=== PATIENT | female | born 1950 | race Caucasian/White ===

== ENCOUNTER → 2017-07-15 | Day surgery (SDC) | payer MEDICARE ==
[2017-07-09 12:16] LABS: BASOPHILS # (AUTO) 0.1 (0.0-0.1); BASOPHILS % 0.6 % (0.0-1.0); EOSINOPHILS # (AUTO) 0.2 (0.0-0.4); EOSINOPHILS % 2.4 % (0.0-6.0); HEMATOCRIT 36.6 % (34.2-44.1); HEMOGLOBIN 12.2 g/dL (12.0-16.0); LYMPHOCYTES # (AUTO) 2.4 (1.0-3.2); LYMPHOCYTES % 28.8 % (18.0-39.1); MEAN CORPUSCULAR HEMOGLOBIN 30.7 pg (28-32); MEAN CORPUSCULAR HGB CONC 33.3 g/dL (31-35); MONOCYTES # (AUTO) 0.5 (0.2-0.8); MONOCYTES % 5.5 % (4.4-11.3); NEUTROPHILS # (AUTO) 5.1 (2.1-6.9); NEUTROPHILS % 61.9 % (38.7-80.0); PLATELET COUNT 341 x10e3/uL (140-360); RED BLOOD COUNT 3.98 x10e6/uL (3.6-5.1); RED CELL DISTRIBUTION WIDTH 12.5 % (11.7-14.4)
[~2017-07-15] MED LIST: ASA81 MG PO; ASPIRIN81 MG PO; CALCIUM WITH V1 EAC1 PO; COPAXONE20 MG INJ; CYMBALTA60 MG PO; FENTANYL CITRATE/PF 100MCG/2 ML INJ ONE; INVANZ1 GM IV; KEFLEX500 MG PO; LEVOTHYROXINE50 MCG PO; LIDOCAINE HCL 2% LOCAL INJ 5 ML SDV VIAL INJ ONE; MIDAZOLAM HCL 2 MG/2 ML VIAL ONE; MULTIVITAMINS1 EAC7 PO; NORCO 7.5-3251 EACH PO; PHENYLEPHRINE HCL 1% 10 MG/ML VIAL ONE; PROPOFOL IV EMULSION 10 MG/ML 50 ML VIAL ONE; TRIAMTERENE/HCTZ PO; TRIMETHOPRIM100 MG PO; TROSPIUM CHLORI20 MG PO; VITAMIN B-12 PO; VITAMIN D32000 UNI1 PO; Z EFFEXOR PO; Z.0.BACLOFEN20 MG PO; Z.0.NEURONTIN300 MG PO
--- OUTSIDE RECORDS SUMMARY | 2017-07-15 08:56 | XMS REPORT ---
Author Author [facility] Address Unknown Phone Unavailable Care Team Providers Care Clothing Manager Name Role Phone EBER MERINO Unavailable Unavailable TIRSO CUELLAR Unavailable Unavailable Problems This patient has no known problems. Allergies, Adverse Reactions, Alerts This patient has no known allergies or adverse reactions. Medications This patient has no known medications. Results Test Description Test Time Test Comments Text Results Atomic Results Result Comments CHEST XRAY LINE PLACEMENT [place] [address] Patient Name: MELANI BURTON MR #: [id number] : 1950 Age/Sex: 66/F Req #: [id number] [facility] Physician: EBER MERINO MD Ordered by: EBER MERINO MD Report #: [id number] Location: [facility] Room/Bed: [place] [address] Procedure: [id number] DX/CHEST XRAY LINE PLACEMENT Exam Date: 02/10/17 Exam Time: 1610 REPORT STATUS: Signed PROCEDURE: A single AP view of the chest. COMPARISON: 02/07/17 INDICATIONS: PICC LINE PLACEMENT FINDINGS: Lines/ tubes: Right upper extremity PICC in place with tip overlying mid SVC. Lungs: The lungs are well inflated. Unchanged left basilar haziness. Pleura: There is no pneumothorax. Heart and mediastinum: The heart and the mediastinum are unremarkable. Bones: No acute bony abnormality. IMPRESSION: Status post right upper extremity PICC placement. No visible pneumothorax. Unchanged left basilar haziness, representing atelectasis and/or a small effusion. Dictated by: Ignacio Turk M.D. on 02/10/2017 at 16:43 Electronically approved by: Ignacio Turk M.D. on 02/10/2017 at 16:43 Dictated By: IGNACIO TURK MD 42 Transcribed By: ELSY on 02/10/171642 COPY TO: EBER MERINO MD CHEST SINGLE (PORTABLE) [place] [address] Patient Name: MELANI BURTON MR #: [id number] : 1950 Age/Sex: 66/F Req #: [id number] Adm Physician: EBER MERINO MD Ordered by: HUANG HOOD Report #: [id number] Location: [facility] Room/Bed: [place] [address] Procedure: [id number] DX/CHEST SINGLE (PORTABLE) Exam Date: 02/07/17 Exam Time: 1436 REPORT STATUS: Signed EXAMINATION: Chest, CHEST SINGLE (PORTABLE) INDICATION: Chest pain COMPARISON: Portable chest 11/18/2016 FINDINGS: LINES: None. Heart: Normal cardiac silhouette. Vascular: The pulmonary vasculature is within normal limits. Atherosclerotic calcifications of the aortic arch. Mediastinum: No mediastinal, hilar, or axillary mass or lymphadenopathy. Lungs: No parenchymal mass. No focal consolidation. Pleura: No pleural effusion. No pneumothorax. Bones: No acute osseous abnormality. Degenerative changes of the thoracic spine. Soft tissues: Loop of colon is present in the right upper quadrant. Impression: No acute radiographic abnormality. Signed by: Dr. El Costello M.D. on 02/07/2017 3:05 PM Dictated By: EL COSTELLO MD 1505 Transcribed By: UZMA on 02/07/17 1505 COPY TO: HUANG HOOD CHEST SINGLE (PORTABLE) [place] [address] Patient Name: MELANI BURTON MR #: [id number] : 1950 Age/Sex: 66/F Req #: [id number] Adm Physician: Ordered by: TIRSO CUELLAR MD Report #: [id number] Location: ER Room/Bed: Procedure: [id number] DX/CHEST SINGLE (PORTABLE) Exam Date: 11/18/16 Exam Time: 1205 REPORT STATUS: Signed PROCEDURE: CHEST SINGLE (PORTABLE) COMPARISON: Chest x-ray, 07/17/69 INDICATIONS: CHEST PAIN FINDINGS: Lines and tubes: None Heart size normal. No focal pulmonary opacity, pleural effusion or pneumothorax. Mild atelectasis and epicardial fat-pad at the left lung base, accentuated by low lung volumes, unchanged from previous exam. Upper abdomen unremarkable. No free air. Interposed colon again seen beneath the right hemidiaphragm. The degenerative change at the shoulders, greater on the left. CONCLUSION: No evidence for acute disease. Stable mild atelectasis at the left lung base. Dictated by: Tirso Sherman M.D. on 11/18/2016 at 12:30 Electronically approved by: Tirso Sherman M.D. on 11/18/2016 at 12:30 Dictated By: TIRSO SHERMAN MD 1230 Transcribed By: ELSY on 11/18/16 1230 COPY TO: TIRSO CUELLAR MD CT CERVICAL SPINE WO [place] [address] Patient Name: MELANI BURTON MR #: [id number] : 1950 Age/Sex: 66/F Req #: [id number] Adm Physician: Ordered by: TIRSO CUELLAR MD Report #: [id number] Location: ER Room/Bed: Procedure: [id number] CT/CT CERVICAL SPINE WO Exam Date: 11/18/16 Exam Time: 1200 REPORT STATUS: Signed Exams: Head and cervical spine CTs without IV contrast History: Trauma, fall, weakness, pain, history of MS. Comparison studies: Multiple prior head CTs and brain MRIs which date to the most remote brain MRI 05/02/2015 and most recent brain MRI of 11/20/2015. Previous cervical spine MRI of 11/19/2012 and 05/02/2015. Technique: Axial images were obtained from the brain and cervical spine. Coronal and sagittal images reconstructed from the axial data. Intravenous contrast: None Findings: Head CT: Scalp: No abnormalities. Bones: No fractures, blastic or lytic lesions. Extra-axial spaces: No masses. No fluid collections. Brain sulci: Appropriate for age. Ventricles: Mild compensatory dilatation. No hydrocephalus. Parenchyma: No mass, acute hemorrhage or acute cortical vascular insults. A few scattered hypodensities in the supratentorial white matter are nonspecific but can be seen with demyelinating disease in this patient with history of multiple sclerosis. Sellar/suprasellar region: No abnormalities. Craniocervical junction: The foramen magnum is patent. No Chiari one malformation. Cervical spine CT: Fractures: None. Soft tissues: No gross abnormalities. Atlantoaxial articulation: Intact. Alignment: Mild cervical kyphosis may be accentuated by patient positioning Cervicomedullary junction: No abnormalities. The foramen magnum is patent. Vertebrae: No infection or neoplasm. Degenerative changes: Multilevel disc degeneration, mild at C3-C4 and C4-C5 and moderate at C5-C6 and at C6-C7. Disc osteophyte complexes from C4 to C7 indent the thecal sac and result in mild canal stenosis at C5-C6 and at C6-C7. Severe right and mild left foraminal stenosis at C5-C6 and mild bilateral foraminal stenosis at C6-C7 due to uncovertebral arthrosis. Moderate facet arthrosis on the left at C2-C3. Incidental findings: Atherosclerotic multilevel foraminal stenosis due to uncovertebral multilevel facet arthrosis calcifications in the left cervical carotid bulb and proximal left left subclavian artery. IMPRESSION: Head CT: 1. No acute abnormalities. 2. Scattered white matter hypodensities which may reflect a combination of chronic small vessel ischemic changes and demyelinating lesions in this patient with history of multiple sclerosis. 3. No gross changes from the previous brain MRI of 2015 when allowing for differences in technique. Cervical spine CT: 1. No cervical spine fracture or subluxation. 2. Degenerative changes as described. 3. Cannot adequately evaluate, ligament, spinal cord or vascular abnormalities on the basis of this exam. Signed by: Dr. Sharon Adler M.D. on 11/18/2016 1:10 PM Dictated By: SHARON ADLER MD 1310 Transcribed By: UZMA on 11/18/16 1310 COPY TO: TIRSO CUELLAR MD CT BRAIN WO [place] [address] Patient Name: MELANI BURTON MR #: [id number] : 1950 Age/Sex: 66/F Req # : [id number] Adm Physician: Ordered by: TIRSO CUELLAR MD Report #: [id number] Location: ER Room/Bed: Procedure: [id number] CT/CT BRAIN WO Exam Date: 11/18/16 Exam Time: 1200 REPORT STATUS: Signed Exams: Head and cervical spine CTs without IV contrast History: Trauma, fall, weakness, pain, history of MS. Comparison studies: Multiple prior head CTs and brain MRIs which date to the most remote brain MRI 05/02/2015 and most recent brain MRI of 11/20/2015. Previous cervical spine MRI of 11/19/2012 and 05/02/2015. Technique: Axial images were obtained from the brain and cervical spine. Coronal and sagittal images reconstructed from the axial data. Intravenous contrast: None Findings: Head CT: Scalp: No abnormalities. Bones: No fractures, blastic or lytic lesions. Extra-axial spaces: No masses. No fluid collections. Brain sulci: Appropriate for age. Ventricles: Mild compensatory dilatation. No hydrocephalus. Parenchyma: No mass, acute hemorrhage or acute cortical vascular insults. A few scattered hypodensities in the supratentorial white matter are nonspecific but can be seen with demyelinating disease in this patient with history of multiple sclerosis. Sellar/suprasellar region: No abnormalities. Craniocervical junction: The foramen magnum is patent. No Chiari one malformation. Cervical spine CT : Fractures: None. Soft tissues: No gross abnormalities. Atlantoaxial articulation: Intact. Alignment: Mild cervical kyphosis may be accentuated by patient positioning Cervicomedullary junction: No abnormalities. The foramen magnum is patent. Vertebrae: No infection or neoplasm. Degenerative changes: Multilevel disc degeneration, mild at C3 -C4 and C4-C5 and moderate at C5-C6 and at C6-C7. Disc osteophyte complexes from C4 to C7 indent the thecal sac and result in mild canal stenosis at C5- C6 and at C6-C7. Severe right and mild left foraminal stenosis at C5-C6 and mild bilateral foraminal stenosis at C6-C7 due to uncovertebral arthrosis. Moderate facet arthrosis on the left at C2-C3. Incidental findings: Atherosclerotic multilevel foraminal stenosis due to uncovertebral multilevel facet arthrosis calcifications in the left cervical carotid bulb and proximal left left subclavian artery. IMPRESSION: Head CT: 1. No acute abnormalities. 2. Scattered white matter hypodensities which may reflect a combination of chronic small vessel ischemic changes and demyelinating lesions in this patient with history of multiple sclerosis. 3. No gross changes from the previous brain MRI of 08/20/2015 when allowing for differences in technique. Cervical spine CT: 1. No cervical spine fracture or subluxation. 2. Degenerative changes as described. 3. Cannot adequately evaluate, ligament, spinal cord or vascular abnormalities on the basis of this exam. Signed by: Dr. Sharon Adler M.D. on 11/18/2016 1:10 PM Dictated By: SHARON ADLER MD 1310 Transcribed By: UZMA on 11/18/16 1310 COPY TO: TIRSO CUELLAR MD
--- NOTE | 2017-07-15 10:55 | Operative Report ---
DATE OF PROCEDURE: July 15, 2017 REFERRING PHYSICIAN: Dr. Aldo Dickey. PROCEDURES PERFORMED 1. Esophagogastroduodenoscopy with biopsies. 2. Colonoscopy with polypectomy. INDICATIONS FOR EGD: Upper abdominal pain. INDICATIONS FOR COLONOSCOPY: Colorectal cancer screening. Personal history of colon polyps. Marked constipation. MEDICATION: Patient was done under MAC. Please see anesthesiologist's note. PROCEDURE: With the patient in the left lateral decubitus position, the flexible fiberoptic Olympus gastroscope was introduced into the esophagus under direct visualization without any difficulty. The esophagus appeared to be within normal limits. The scope was then advanced with ease into the stomach. Mucosa overlying the antrum and the body revealed some diffuse erythema and moderate edema, and biopsies were obtained and sent to stain for H. pylori. Pylorus appeared to be of normal contour and shape. It was intubated with ease, and the scope was advanced all the way to the 2nd portion of the duodenum. The scope was then withdrawn slowly. Mucosa overlying the proximal 2nd portion and the duodenal bulb appeared to be within normal limits. The scope was then withdrawn back into the stomach and retroflexed. Mucosa overlying the fundus and cardia appeared to be within normal limits. The scope was then straightened out. The stomach was decompressed. Scope was subsequently withdrawn. Patient tolerated the procedure well. IMPRESSION 1. Normal esophagus. 2. Gastritis, biopsied. Biopsies sent to stain for H. pylori. PLAN: Follow up histology. Initiate Protonix 40 mg 1 p.o. q.a.m. a.c. The patient was then turned around. After adequate lubrication of the anal canal, a flexible fiberoptic Olympus colonoscope was inserted into the rectum with ease and advanced to possibly the hepatic flexure. It could not be advanced any further as the prep overall was poor. The scope was then withdrawn slowly. Whatever was visualized of the mucosa overlying the transverse and descending grossly appeared to be within normal limits. Two polyps were hot biopsied from the sigmoid colon. The scope was retroflexed into the distal rectum, and the area around the dentate line could not be visualized due to the large amount of retained stool. Scope was subsequently withdrawn. Patient tolerated the procedure well. IMPRESSION 1. Poor prep. 2. Sigmoid colon polyps times 2, hot biopsied. PLAN: Follow up histology. Patient will need a repeat colonoscopy after a better prep. Job#: [id number] MH cc:ALDO DICKEY M.D.
== END | disposition home or self-care (01) ==
LOC: OR 08:54
PROVIDERS: ATTEND Internal Medicine Gastroenterology
DX: R10.13 Epigastric pain (principal); K59.00 Constipation, unspecified; K63.5 Polyp of colon; K29.50 Unspecified chronic gastritis without bleeding; Z01.810 Encounter for preprocedural cardiovascular examination; Z01.812 Encounter for preprocedural laboratory examination; I10 Essential (primary) hypertension; E03.9 Hypothyroidism, unspecified; G35 Multiple sclerosis; Z99.3 Dependence on wheelchair; M19.90 Unspecified osteoarthritis, unspecified site
CPT/HCPCS: 36415; 43239; 45384; 84443; 85025; 93005; J2001; J2250; J2370; 45378

== ENCOUNTER 2017-08-30 06:54 | Observation (INO) | payer MEDICARE ==
[~2017-08-30] VITALS: Ht 165.1 cm; Wt 79.4 kg
[~2017-08-30 06:54] MED LIST changes: -FENTANYL CITRATE/PF 100MCG/2 ML INJ ONE; -LIDOCAINE HCL 2% LOCAL INJ 5 ML SDV VIAL INJ ONE; -MIDAZOLAM HCL 2 MG/2 ML VIAL ONE; -PHENYLEPHRINE HCL 1% 10 MG/ML VIAL ONE; -PROPOFOL IV EMULSION 10 MG/ML 50 ML VIAL ONE
[2017-08-30] MEDS ORDERED: SODIUM CHLORIDE 0.9% 1000ML 1,000 ML IV STA (07:15)
[2017-08-30 07:57] LABS: BASOPHILS # (AUTO) 0.1 (0.0-0.1); BASOPHILS % 0.6 % (0.0-1.0); EOSINOPHILS # (AUTO) 0.2 (0.0-0.4); HEMOGLOBIN 13.4 g/dL (12.0-16.0); LYMPHOCYTES # (AUTO) 2.9 (1.0-3.2); LYMPHOCYTES % 34.8 % (18.0-39.1); MEAN CORPUSCULAR HEMOGLOBIN 30.8 pg (28-32); MEAN CORPUSCULAR HGB CONC 34.4 g/dL (31-35); MEAN CORPUSCULAR VOLUME 89.7 fL (81-99); MONOCYTES # (AUTO) 0.6 (0.2-0.8); MONOCYTES % 7.1 % (4.4-11.3); NEUTROPHILS # (AUTO) 4.5 (2.1-6.9); NEUTROPHILS % 55.1 % (38.7-80.0); PLATELET COUNT 471 x10e3/uL (140-360); RED BLOOD COUNT 4.35 x10e6/uL (3.6-5.1); RED CELL DISTRIBUTION WIDTH 12.8 % (11.7-14.4)
[2017-08-30 08:19] LABS: ALBUMIN 3.5 g/dL (3.5-5.0); ALBUMIN/GLOBULIN RATIO 0.9 (0.8-2.0); CREATININE, SERUM 1.77 mg/dL (0.57-1.11); INR 0.95; MAGNESIUM 2.1 MG/DL (1.3-2.1); PARTIAL THROMBOPLASTIN TIME 25.6 seconds (23.8-35.5); PROTHROMBIN TIME 11.9 seconds (11.9-14.5)
[2017-08-30 08:21] LABS: CALCIUM 11.4 mg/dL (8.4-10.2)
--- NOTE | 2017-08-30 08:27 | Diagnostic Imaging Report ---
EXAMINATION: CHEST SINGLE (PORTABLE) INDICATION: \S\ERMD ORDER \S\[id number] \S\[id number] \S\Y COMPARISON: 02/07/2017 FINDINGS: AP view TUBES and LINES: None. LUNGS: Lungs are well inflated. Lungs are clear. There is no evidence of pneumonia or pulmonary edema. PLEURA: No pleural effusion or pneumothorax. HEART AND MEDIASTINUM: The cardiomediastinal silhouette is unremarkable. BONES AND SOFT TISSUES: No acute osseous lesion. Soft tissues are unremarkable. UPPER ABDOMEN: No free air under the diaphragm. IMPRESSION: No acute thoracic abnormality. Signed by: Dr. Lisy Perez M.D. on 08/30/2017 8:24 AM
[2017-08-30 08:29] LABS: CLARITY,URINE HAZY (CLEAR); COLOR,URINE STRAW (YELLOW); LEUKOCYTE ESTERASE ,URINE TRACE (NEGATIVE); NITRITE,URINE POSITIVE (NEGATIVE); PROTEIN,URINE DIPSTICK NEGATIVE (NEGATIVE)
[2017-08-30 08:30] LABS: BACTERIA,URINE MANY /HPF; BILIRUBIN,URINE NEGATIVE (NEGATIVE); EPITHELIAL CELLS,URINE RARE /LPF; KETONES,URINE NEGATIVE (NEGATIVE); URINE UROBILINOGEN 0.2 mg/dL (0.2 - 1); WBC,URINE (MAN) 0-5 /HPF (0-5)
[2017-08-30] MEDS ORDERED: ONDANSETRON HCL INJ 2 MG/ML VIAL IV PRN (08:45)
[2017-08-30] MEDS: SODIUM CHLORIDE 0.9% 1000ML 1,000 ML IV SCH ×2 (10:30→21:44)
[2017-08-30 11:28] VITALS: BP 153/80
[2017-08-30 12:00] VITALS: BP 150/74
[2017-08-30] MEDS ORDERED: PIPER-TAZ 3.375 GM 50 ML IV SCH (12:00)
[2017-08-30] MEDS ORDERED: CLONIDINE HCL 0.1 MG TAB PO PRN (16:30)
[2017-08-30] MEDS ORDERED: ACETAMINOPHEN 325 MG TAB PO PRN (16:30)
[2017-08-30 17:00] VITALS: BP 127/58
[2017-08-30] MEDS ORDERED: TROSPIUM CHLORIDE 20 MG PO SCH (17:00)
[2017-08-30] MEDS: LACTOBACILLUS ACIDOPHILUS CAPSULE PO SCH (17:25)
[2017-08-30] MEDS: BACLOFEN 10 MG TAB PO SCH ×2 (17:25→21:44)
[2017-08-30] MEDS: MEROPENEM 500 MG VIAL IV SCH (17:25)
[2017-08-30] MEDS: GABAPENTIN 300 MG CAP PO SCH (17:25)
[2017-08-30 20:00] VITALS: BP 149/67
[2017-08-30] MEDS: HEPARIN SOD (PORCINE) 5,000 UNIT/ML VIAL SC SCH (21:57)
[2017-08-30] MEDS ORDERED: MEROPENEM 500MG 500 MG in SODIUM CHLORIDE 0.9% 50ML 50 ML IV SCH (22:00)
[2017-08-30] MEDS: TROSPIUM CHLORIDE 20 MG PO SCH (23:00)
[2017-08-31] VITALS: BP 166/77
[2017-08-31] MEDS: MEROPENEM 500 MG VIAL IV SCH ×3 (02:15→17:26)
[2017-08-31 04:00] VITALS: BP 146/66
[2017-08-31 06:07] LABS: BASOPHILS # (AUTO) 0.1 (0.0-0.1); BASOPHILS % 0.9 % (0.0-1.0); EOSINOPHILS # (AUTO) 0.2 (0.0-0.4); EOSINOPHILS % 2.6 % (0.0-6.0); HEMATOCRIT 38.2 % (34.2-44.1); HEMOGLOBIN 12.8 g/dL (12.0-16.0); LYMPHOCYTES # (AUTO) 2.8 (1.0-3.2); LYMPHOCYTES % 34.5 % (18.0-39.1); MEAN CORPUSCULAR HEMOGLOBIN 30.4 pg (28-32); MEAN CORPUSCULAR HGB CONC 33.5 g/dL (31-35); MEAN CORPUSCULAR VOLUME 90.7 fL (81-99); MONOCYTES # (AUTO) 0.5 (0.2-0.8); MONOCYTES % 6.2 % (4.4-11.3); NEUTROPHILS # (AUTO) 4.6 (2.1-6.9); NEUTROPHILS % 55.3 % (38.7-80.0); PLATELET COUNT 437 x10e3/uL (140-360); RED BLOOD COUNT 4.21 x10e6/uL (3.6-5.1); RED CELL DISTRIBUTION WIDTH 13.2 % (11.7-14.4)
[2017-08-31 06:34] LABS: ANION GAP 14.9 mmol/L (8-16); CALCIUM 10.1 mg/dL (8.4-10.2); CREATININE, SERUM 1.75 mg/dL (0.57-1.11); POTASSIUM 3.9 mmol/L (3.5-5.1)
[2017-08-31] MEDS: SODIUM CHLORIDE 0.9% 1000ML 1,000 ML IV SCH (06:38)
[2017-08-31] MEDS: LEVOTHYROXINE SODIUM 50 MCG TAB PO SCH (06:38)
[2017-08-31 06:59] LABS: THYROID STIMULATING HORMONE 1.67 uIU/mL (0.350-4.940)
[2017-08-31 07:39] VITALS: BP 117/71
[2017-08-31] MEDS: DULOXETINE HCL 30 MG DELAYED RELEASE PO SCH (08:54)
[2017-08-31] MEDS: GABAPENTIN 300 MG CAP PO SCH ×2 (08:55→17:26)
[2017-08-31] MEDS: LACTOBACILLUS ACIDOPHILUS CAPSULE PO SCH ×2 (08:55→17:26)
[2017-08-31] MEDS: BACLOFEN 10 MG TAB PO SCH ×4 (08:55→20:41)
[2017-08-31] MEDS: HEPARIN SOD (PORCINE) 5,000 UNIT/ML VIAL SC SCH ×2 (09:00→20:43)
[2017-08-31] MEDS: GLATIRAMER 20 MG SC SCH (09:00)
[2017-08-31] MEDS ORDERED: GLATIRAMER (COPOLYMER-1) 20 MG SYR SQ SCH (09:00)
[2017-08-31] MEDS ORDERED: NON-FORMULARY MEDICATION (Duloxetine Hcl (Cymbalta) 60 MG) PO SCH (09:00)
[2017-08-31] MEDS: TROSPIUM CHLORIDE 20 MG PO SCH ×2 (11:00→23:07)
[2017-08-31 11:24] VITALS: BP 127/66
[2017-08-31 11:52] LABS: ANION GAP 14.6 mmol/L (8-16); CALCIUM 9.5 mg/dL (8.4-10.2); CREATININE, SERUM 1.54 mg/dL (0.57-1.11); POTASSIUM 4.6 mmol/L (3.5-5.1)
--- NOTE | 2017-08-31 14:15 | Diagnostic Imaging Report ---
PROCEDURE: CHEST XRAY LINE PLACEMENT COMPARISON: Chest radiograph 02/07/2017. INDICATIONS: PICC LINE PLACEMENT FINDINGS: Initial image shows tip of a left upper extremity PICC projecting of the expected region of the azygos confluence with the superior vena cava. Image after repositioning shows left upper extremity PICC tip projecting over the low superior vena cava. Lungs remain clear without consolidation, pleural effusion, or pneumothorax. Stable cardiomediastinal contour. Upper abdomen is again notable for colonic interposition between the liver and right hemidiaphragm. CONCLUSION: Tip of left upper extremity PICC projects over the low superior vena cava. Dictated by: Popeye Thomas M.D. on 08/31/2017 at 14:19 Electronically approved by: Popeye Thomas M.D. on 08/31/2017 at 14:19
[2017-08-31 15:28] VITALS: BP 100/58
--- NOTE | 2017-08-31 16:44 | Consultation ---
DATE OF CONSULTATION: August 31, 2017 INFECTIOUS DISEASE CONSULTATION REASON FOR CONSULTATION: Recurrent UTI. HISTORY OF PRESENT ILLNESS: This is a patient who is a very pleasant 67-year-old white female with history of multiple sclerosis, history of recurrent UTI. The patient was back here in January. At that time she had UTI. The patient is telling me that her symptoms, when she gets a UTI, are usually weakness in the lower extremities, not feeling well, feeling really bad, no specific fever or chills, and that is how she knows she has a UTI. The patient has history of recent recurrent UTI. She sees Dr. Orlando. She does have history of multiple sclerosis. PAST SURGICAL HISTORY: Hysterectomy, left ankle surgery. ALLERGIES: NKA. SOCIAL HISTORY: There is no smoking, drug abuse, alcohol abuse. FAMILY HISTORY: Otherwise noncontributory. REVIEW OF SYSTEMS: At the present time, HEENT: There is no headache or visual changes, hearing changes. GI: There is no nausea, no vomiting, no diarrhea. CARDIAC: There is no arrhythmia. NEUROLOGIC: No seizure activity. SKIN: There is no rash. She states she does not have very good feeling about her urine. She does not control it, but her other symptoms usually tell her she has UTI. The patient was admitted, was started on antibiotic and Infectious Disease was consulted. I have reviewed her chart. 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 LABORATORY DATA: White count is 8.19, hemoglobin 13.4. Her sodium 142, potassium 4.6, creatinine 1.54. Urine is showing gram-negative rods. Patient is currently on baclofen, Neurontin, meropenem and Synthroid. PHYSICAL EXAMINATION: GENERAL: She is currently alert, oriented, does not seem to be in acute distress. VITALS: Stable. Currently afebrile. HEENT: She does not appear icteric. NECK: Supple. CHEST: Clear. HEART: S1 and S2. No S3, no S4, no murmur. ABDOMEN: Soft. Bowel sounds present. No tenderness. EXTREMITIES: No edema. IMPRESSION: 1. Urinary tract infection in a patient with multiple sclerosis. 2. Chronic kidney disease. She is currently on meropenem, continue with the same. Will follow with you. Await culture and sensitivity. Job#: [id number] EV
[2017-08-31 20:35] VITALS: BP 132/64
[2017-09-01] VITALS (7 sets, daily range): BP systolic 115–170; BP diastolic 56–83
[2017-09-01] MEDS: SODIUM CHLORIDE 0.9% 1000ML 1,000 ML IV SCH ×4 (00:41→20:41)
[2017-09-01] MEDS: MEROPENEM 500 MG VIAL IV SCH ×3 (01:23→17:09)
[2017-09-01] MEDS: LEVOTHYROXINE SODIUM 50 MCG TAB PO SCH (06:05)
[2017-09-01] MEDS: HEPARIN SOD (PORCINE) 5,000 UNIT/ML VIAL SC SCH ×2 (08:47→22:38)
[2017-09-01] MEDS: DULOXETINE HCL 30 MG DELAYED RELEASE PO SCH (08:47)
[2017-09-01] MEDS: BACLOFEN 10 MG TAB PO SCH ×4 (08:47→22:38)
[2017-09-01] MEDS: GABAPENTIN 300 MG CAP PO SCH ×2 (08:47→17:09)
[2017-09-01] MEDS: LACTOBACILLUS ACIDOPHILUS CAPSULE PO SCH ×2 (08:47→17:09)
[2017-09-01] MEDS: GLATIRAMER 20 MG SC SCH (08:47)
[2017-09-01] MEDS ORDERED: LACTATED RINGER'S 1,000 ML IV SCH (09:45)
[2017-09-01] MEDS: TROSPIUM CHLORIDE 20 MG PO SCH (11:00)
[2017-09-01] MEDS ORDERED: MERREM500 MG IV (12:37)
--- NOTE | 2017-09-01 15:03 | Discharge Summary ---
PATIENT'S PRIMARY CARE DOCTOR: Dr. Aldo Viramontes. PATIENT'S HOSPITAL DOCTOR: Dr. Cinda Kevin. PRIMARY DIAGNOSIS: Urinary tract infection, Escherichia coli extended-spectrum beta-lactamase. SECONDARY DIAGNOSES: Include 1. History of multiple sclerosis. 2. Recurrent urinary tract infection. 3. Chronic kidney disease. 4. Weakness/nonambulatory status. 5. Hypertension. 6. Hypothyroidism. HOSPITAL COURSE: Ms. Medina is a pleasant 67-year-old female with recurrent urinary tract infections. She had a good assessment and she was correct that she had a urinary tract infection. PICC line was placed after suspicion of home antibiotics. ESBL E. coli was growing out. Thereafter, she was allowed for outpatient followup and discharge. Her creatinine was a little bit higher than the usual baseline with 1.77 on hospital admit, although it has been in 1.4 range, 1.5 range in the past. She was ordered for ultrasound of the kidneys prior to discharge to ensure there is no hydronephrosis. Chest x-ray was clear, and white count was 8 on discharge. DIET: Resume low-salt diet. ACTIVITY: As tolerated with assist devices. At baseline patient says she has a scooter. MEDICATIONS: See medication list for details. FOLLOWUP: Follow up with Dr. Orlando of urology and Dr. Alfred of infectious disease and Dr. Viramontes. Greater than 30 minutes in direct care and coordination on discharge. ANGELINA SPRING MD Job#: [id number] EV
--- NOTE | 2017-09-01 20:52 | Diagnostic Imaging Report ---
PROCEDURE:US RETROPERITONEAL ( KIDNEY ). COMPARISON:None. INDICATIONS:BREANN, ELEVATED CREATININE TECHNIQUE: Allen-scale and color sonographic images of the bilateral kidneys and bladder where obtained in transverse and longitudinal planes. FINDINGS: RIGHT KIDNEY: 8.4 cm, cortex 1.5 cm Cysts: None Solid masses: None Stones: None Hydronephrosis: None Echogenicity: Normal LEFT KIDNEY: 7.8 cm, cortex 1.9 cm Cysts: None Solid masses: None Stones: None Hydronephrosis: None Echogenicity: Normal Bladder: Unremarkable. No focal lesions. Bilateral ureteral jets are identified. CONCLUSION: 1. Both kidneys are below normal in size. No stones, hydronephrosis, or focal lesions. Chema Durbin M.D. Dictated by: Chema Durbin M.D. on 09/01/2017 at 15:54 Electronically approved by: Chema Durbin M.D. on 09/01/2017 at 15:54
== END 2017-09-01 22:30 | disposition home or self-care (01) ==
LOC: ER 07:04 → ERHOLD 08:45 → IMCU 09:43
PROVIDERS: ADMIT Internal Medicine; ATTEND Internal Medicine
DX: N39.0 Urinary tract infection, site not specified (principal); B96.20 Unspecified Escherichia coli [E. coli] as the cause of diseases classified elsewhere; N17.9 Acute kidney failure, unspecified; I12.9 Hypertensive chronic kidney disease with stage 1 through stage 4 chronic kidney disease, or unspecified chronic kidney disease; N18.9 Chronic kidney disease, unspecified; G35 Multiple sclerosis; R53.1 Weakness; E03.9 Hypothyroidism, unspecified
CPT/HCPCS: 36415 ×2; 36569; 51700; 71045 ×2; 76770; 80048; 80053; 81001; 83735; 84443; 85025 ×2; 85610; 85730; 87086; 87186; 99284; G0378 ×3; J1644 ×3; J2185 ×3; J2543; J7030 ×3; J7120

== ENCOUNTER 2017-09-07 14:33 | Emergency (ER) | payer MEDICARE ==
[~2017-09-07] VITALS: Ht 165.1 cm; Wt 79.4 kg
[~2017-09-07 14:33] MED LIST changes: +MERREM500 MG IV
[2017-09-07] MEDS ORDERED: ALTEPLASE RECOMBINANT 2 MG/2 ML VIAL IV PRN (16:00)
== END 2017-09-07 18:27 | disposition home or self-care (01) ==
LOC: ER 14:33
DX: T82.598A Other mechanical complication of other cardiac and vascular devices and implants, initial encounter (principal); G35 Multiple sclerosis; E07.9 Disorder of thyroid, unspecified
CPT/HCPCS: 74470; 99283; J2997

== ENCOUNTER 2017-09-08 13:52 | Emergency (ER) | payer MEDICARE ==
[~2017-09-08] VITALS: Ht 165.1 cm; Wt 79.4 kg
--- NOTE | 2017-09-08 15:14 | Diagnostic Imaging Report ---
PROCEDURE: A single AP view of the chest. COMPARISON: Patients [facility], DX, CHEST XRAY LINE PLACEMENT, 08/31/2017, 13:57. INDICATIONS: VERIFY PICC PLACEMENT FINDINGS: See impression. IMPRESSION: 1. left-sided PICC line has distal tip projecting at the junction of the left innominate and SVC. 2. No consolidation or effusion. 3. Cardiac silhouette is unremarkable. Pulmonary vasculature is normal. Chema Durbin M.D. Dictated by: Chema Durbin M.D. on 09/08/2017 at 15:18 Electronically approved by: Chema Durbin M.D. on 09/08/2017 at 15:18
[2017-09-08] MEDS ORDERED: ALTEPLASE RECOMBINANT 2 MG/2 ML VIAL IV PRN (17:45)
[2017-09-08 21:01] VITALS: BP 151/83
== END 2017-09-08 20:52 | disposition home or self-care (01) ==
LOC: ER 13:52
DX: T82.598A Other mechanical complication of other cardiac and vascular devices and implants, initial encounter (principal)
CPT/HCPCS: 71045; 99282; J2997

== ENCOUNTER 2017-10-02 05:09 | Inpatient (IN) | payer MEDICARE ==
[~2017-10-02] VITALS: Ht 165.1 cm; Wt 73.5 kg
[2017-10-02 05:37] LABS: BASOPHILS # (AUTO) 0.1 (0.0-0.1); BASOPHILS % 0.9 % (0.0-1.0); EOSINOPHILS # (AUTO) 0.2 (0.0-0.4); EOSINOPHILS % 2.6 % (0.0-6.0); HEMATOCRIT 32.1 % (34.2-44.1); HEMOGLOBIN 11.1 g/dL (12.0-16.0); LYMPHOCYTES # (AUTO) 2.6 (1.0-3.2); LYMPHOCYTES % 32.8 % (18.0-39.1); MEAN CORPUSCULAR HEMOGLOBIN 30.9 pg (28-32); MEAN CORPUSCULAR HGB CONC 34.6 g/dL (31-35); MEAN CORPUSCULAR VOLUME 89.4 fL (81-99); MONOCYTES # (AUTO) 0.6 (0.2-0.8); MONOCYTES % 7.1 % (4.4-11.3); NEUTROPHILS # (AUTO) 4.5 (2.1-6.9); NEUTROPHILS % 56.4 % (38.7-80.0); PLATELET COUNT 357 x10e3/uL (140-360); RED BLOOD COUNT 3.59 x10e6/uL (3.6-5.1); RED CELL DISTRIBUTION WIDTH 12.4 % (11.7-14.4)
[2017-10-02 05:52] LABS: BACTERIA,URINE RARE /HPF; BILIRUBIN,URINE NEGATIVE (NEGATIVE); CLARITY,URINE CLEAR (CLEAR); COLOR,URINE YELLOW (YELLOW); KETONES,URINE NEGATIVE (NEGATIVE); LEUKOCYTE ESTERASE ,URINE NEGATIVE (NEGATIVE); NITRITE,URINE NEGATIVE (NEGATIVE); PROTEIN,URINE DIPSTICK NEGATIVE (NEGATIVE); RBC,URINE 0-5 /HPF (0-5); URINE UROBILINOGEN 0.2 mg/dL (0.2 - 1); WBC,URINE (MAN) 0-5 /HPF (0-5)
[2017-10-02 05:53] LABS: EPITHELIAL CELLS,URINE RARE /LPF
[2017-10-02 06:00] LABS: PARTIAL THROMBOPLASTIN TIME 26.4 seconds (23.8-35.5); PROTHROMBIN TIME 12.4 seconds (11.9-14.5)
[2017-10-02 06:07] LABS: ALBUMIN 3.3 g/dL (3.5-5.0); ALBUMIN/GLOBULIN RATIO 0.9 (0.8-2.0); ANION GAP 14.4 mmol/L (8-16); CALCIUM 10.1 mg/dL (8.4-10.2); CREATININE, SERUM 1.77 mg/dL (0.57-1.11); MAGNESIUM 1.9 MG/DL (1.3-2.1); POTASSIUM 3.4 mmol/L (3.5-5.1)
--- NOTE | 2017-10-02 06:16 | Diagnostic Imaging Report ---
CHEST SINGLE (PORTABLE), 10/02/2017 5:25 AM Technique: CHEST SINGLE (PORTABLE) Comparison: 09/08/2017 Clinical history: Bilateral lower extremity weakness Findings: See Impression Impression: 1. Lines/Tubes: Left PICC tip projects over the expected proximal SVC. 2. Stable/normal cardiomediastinal silhouette. 3. Mild bibasilar opacity, favor vascular crowding/atelectasis. 4. Stable blunting of the left costophrenic angle Signed by: Dr Pam Woods MD on 10/02/2017 6:13 AM
[2017-10-02 06:28] LABS: CREATINE KINASE MB 1.5 ng/mL (0-5.0); THYROID STIMULATING HORMONE 0.913 uIU/mL (0.350-4.940)
[2017-10-02] MEDS ORDERED: ONDANSETRON HCL INJ 2 MG/ML VIAL IV PRN (07:15)
[2017-10-02] MEDS ORDERED: METHYLPREDNISOLONE SOD SUCC 125 MG/2ML VIAL IV SCH (07:15)
[2017-10-02] MEDS ORDERED: SODIUM CHLORIDE 0.9% 1000ML 1,000 ML IV SCH ×2 (07:15→11:00)
[2017-10-02] MEDS ORDERED: SODIUM CHLORIDE 0.9% 1000ML 1,000 ML IV ONE (07:15)
[2017-10-02] MEDS: METHYLPREDNISOLONE SOD SUCC IV SCH (07:35)
[2017-10-02] MEDS: SODIUM CHLORIDE 0.9% IV SCH (07:35)
[2017-10-02 07:36] LABS: ERYTHROCYTE SEDIMENTATION RATE 51 mm/hr (0-20)
[2017-10-02 09:00] VITALS: BP 118/64
[2017-10-02] MEDS ORDERED: POTASSIUM CHLORIDE 20 MEQ TAB CR PO STA (10:56)
[2017-10-02] MEDS ORDERED: HYDRALAZINE HCL 20 MG/ML VIAL IV PRN (11:00)
[2017-10-02 12:00] VITALS: BP 134/66
[2017-10-02] MEDS ORDERED: BACLOFEN 10 MG TAB PO SCH ×2 (13:00→21:00)
[2017-10-02] MEDS ORDERED: BACLOFEN 20 MG PO SCH (13:00)
[2017-10-02] MEDS: ACETAMINOPHEN 325 MG TAB PO PRN ×2 (13:32→23:34)
[2017-10-02 16:00] VITALS: BP 124/70
[2017-10-02] MEDS: NYSTATIN 15 GM POWDER UD BTL TOP SCH (17:00)
[2017-10-02] MEDS ORDERED: NON-FORMULARY MEDICATION (Trospium Chloride 20 MG) PO SCH (17:00)
[2017-10-02 17:39] VITALS: BP 134/66
[2017-10-02] MEDS: BACLOFEN 10 MG TAB PO SCH ×2 (18:09→21:25)
[2017-10-02] MEDS: NON-FORMULARY MEDICATION (Trospium Chloride 20 MG) PO SCH (18:09)
[2017-10-02] MEDS: ACETAMINOPHEN/CODEINE 300MG - 30MG TAB PO PRN (19:55)
[2017-10-02 19:57] VITALS: BP 152/89
[2017-10-02 20:00] VITALS: BP 152/89
--- NOTE | 2017-10-02 21:19 | Consultation ---
DATE OF CONSULTATION: October 02, 2017 NEUROLOGY CONSULTATION HISTORY OF PRESENT ILLNESS: Ms. Medina is a 67-year-old, [id number] woman with past medical history significant for relapsing, remitting multiple sclerosis and thyroid disease, admitted to [facility] on October 02, 2017 with a probable multiple sclerosis exacerbation. Ms. Medina presented to the Emergency Center at [facility] on morning of admission with concerns she had a urinary tract infection. One day prior to admission, the patient developed weakness in her legs with both legs being equally affected. In the past, when the patient has developed weakness in her legs with the left leg being more affected than the right leg, she has often been found to have a urinary tract infection. As part of her evaluation in the Emergency Center, the patient underwent a urinalysis which did not show evidence of urinary tract infection. Therefore, Ms. Medina was admitted to [facility] on October 02, 2017 for treatment of a multiple sclerosis exacerbation. As stated above, Ms. Medina endorses weakness of the legs with both legs being equally affected. She reports tingling of all the fingers on both hands. She endorses gait impairment secondary to weakness in both legs. Of note, the patient is no longer ambulatory, but is able to transfer unaided. Ms. Medina does not endorse any new visual symptoms, dysarthria, aphasia, facial droop, weakness of the arms, or urinary retention. She does report occasional urinary incontinence and constipation, but both are chronic. Ms. Medina was diagnosed with multiple sclerosis approximately 19 years ago. She is taking Copaxone 20 mg subcutaneously daily as disease modifying therapy. She takes baclofen three times daily for spasticity and Cymbalta daily for pain. Ms. Medina does not recall when her last multiple sclerosis exacerbation occurred. She does not recall the last time imaging of her brain or spinal cord was performed. As indicated above, the patient has been hospitalized multiple times with urinary tract infections. Her most recent urinary tract infection was diagnosed in the beginning of August of 2017. She was discharged from [facility] to her home with IV antibiotics through home health. However, Ms. Medina reports her daughter administered her IV antibiotics every 12 hours for approximately 2 weeks. Patient's daughter then left town for an extended period of time, leaving Ms. Medina without someone to administer the last 2 weeks of intravenous antibiotics. REVIEW OF SYSTEMS: Constipation, weakness affecting both legs, tingling affecting all fingers of both hands, and gait impairment. Otherwise the 12-point review of systems is negative. PAST MEDICAL HISTORY: Thyroid disease, relaxing, remitting multiple sclerosis. As stated in history of present illness, the patient is no longer ambulatory but is able to transfer without assistance. FAMILY MEDICAL HISTORY: The patient's paternal and maternal grandparents are . Their medical histories are unknown. Patient's father is from leukemia. Patient's mother at the age of 90 years from natural causes. Ms. Medina has 4 sisters, all of whom are alive and healthy. The patient has 1 son and 1 daughter, both of whom are alive and healthy. PAST SURGICAL HISTORY: Cholecystectomy in January 2015, left knee arthroscopy in 1995, partial hysterectomy in 1986, right ankle surgery some time in the , tonsillectomy, appendectomy. PAST HOSPITALIZATIONS: Surgeries/procedures as listed, multiple UTIs, MS exacerbations (number and frequency unknown), childbirth times 2. SOCIAL HISTORY: Ms. Medina is single. She is a retired administrative sales assistant. Patient does report a history of tobacco use, but quit smoking cigarettes in December 2014. The patient does not report current or prior alcohol or recreational drug use. HOME MEDICATIONS: Copaxone 20 mg subcutaneously daily, baclofen 20 mg by mouth 4 times daily, duloxetine 60 mg by mouth daily, levothyroxine 50 mcg by mouth every morning. ALLERGIES: NO KNOWN DRUG ALLERGIES. NO KNOWN FOOD ALLERGIES. NO KNOWN ALLERGIES TO LATEX. NO KNOWN ALLERGIES TO IODINE OR OTHER CONTRAST MATERIALS. PHYSICAL EXAMINATION: VITAL SIGNS: Height 65 inches, weight 162 pounds, BMI 26.96 kg per meter squared. Blood pressure 124/70 mmHg, pulse 81 beats per minute. Respiratory rate 18 breaths per minute. Oxygen saturation 96% on room air. GENERAL: The patient is awake and alert. Does not appear distressed. HEENT: Normocephalic and atraumatic. Pupils are equal, round and reactive to light. Moist mucous membranes. NECK: Supple. No appreciable thyromegaly. No appreciable carotid bruits. CARDIOVASCULAR: S1 and S2. Regular rate and rhythm. No murmurs, rubs or gallops. RESPIRATORY: Clear to auscultation bilaterally. No wheezes, rhonchi or rales. EXTREMITIES: The skin is warm and dry. No clubbing, cyanosis or edema. The posterior tibial and dorsalis pedis pulses are 2+ and symmetric. SKIN: Multiple linear scratches over the bilateral forelegs. Ms. Medina reports these scratches are from her new kitten. NEUROLOGIC: Memory/attention: The patient is awake and alert. Oriented to person, place, time, and situation. CRANIAL NERVES: Cranial nerve I: Not tested. Cranial nerves II, III, IV, : Pupils are equal and round, react briskly to light (from 4 mm to 2 mm). Extraocular movements intact. No nystagmus. Cranial nerve V: Sensation to light touch and pinprick is intact in the bilateral V1 through V3 distributions. Strength of the temporalis and masseter muscles is within normal limits. Cranial nerve VII: The face is symmetric, as are all facial movements. Strength is within normal limits. Cranial nerve VIII: Hearing is intact to finger rub bilaterally. Cranial nerve IX and X: The soft palate elevates equally and symmetrically. Cranial nerve XI: Normal strength of the bilateral sternocleidomastoid and trapezius muscles. Cranial nerve XII: The tongue protrudes midline and moves symmetrically from side to side. STRENGTH: Bulk is normal, and strength is 5/5 in the bilateral deltoids, biceps, triceps, wrist flexors and extensors, finger flexors, 4/5 in the bilateral finger extensors, 4/5 in the bilateral intrinsic hand muscles. Strength is 0-1/5 in the left lower extremity. Strength is 2/5 in the right lower extremity. Tone is decreased in both legs. DTRs: Deep tendon reflexes are 1+ and symmetric at the triceps, biceps, brachioradialis, patellas, and Achilles. Plantar responses are extensor on the left and flexor on the right. SENSATION: Intact to light touch and pinprick in both arms and both legs. CEREBELLAR: Umecpt-iglj-rayori movements are intact without dysmetria or other impairment. Heel-birch movements cannot be performed secondary to weakness. GAIT: Deferred. SPEECH: Spontaneous speech is normal without appreciable dysarthria or aphasia. Repetition is intact. INVOLUNTARY MOVEMENTS: None. PRONATOR DRIFT: As per motor exam. LABORATORY DATA: Sodium 140, potassium 3.4, chloride 103, carbon dioxide 26, anion gap 14.4, BUN 42, creatinine 1.77, estimated GFR 28. BUN to creatinine ratio 24. Glucose 94, lactic acid 5.9. Calcium 10.1. Magnesium 1.9 and total bilirubin 0.4, AST 22, ALT 12, alkaline phosphatase 56. Total protein 6.8, albumin 3.3, globulin 3.5. Albumin to globulin ratio 0.9. Creatinine kinase 68 and CK-MB 1.50. Troponin I 0.021, TSH 0.193. CBC with differential and platelets reveals a white blood cell count of 8.05 with 56.4% neutrophils, 32.8% lymphocytes, 7.1% monocytes, 2.6% eosinophils, and 0.9% basophils. The hemoglobin and hematocrit are 11.1 and 32.1, respectively. The platelet count is 357,000. PT 12.4, INR 1.00, PTT 26.4. Urinalysis was unremarkable. DIAGNOSTIC STUDIES: EKG 10/02/2017: Normal sinus rhythm at 93 beats per minute. Chest x-ray 10/02/2017: Line/tubes: Left PICC. Tip projects over the expected proximal SVC. Stable/normal cardiomediastinal silhouette. Mild bibasilar opacity, favor vascular crowding/atelectasis. Stable blunting of the left costophrenic angle. ASSESSMENT AND PLAN: Ms. Medina is a 67-year-old [id number] woman with past medical history significant for relapsing remitting multiple sclerosis admitted with a probable MS exacerbation. A thorough neurological examination has been performed and it is documented above. Patient's laboratory data and other diagnostic studies have been reviewed and are documented above. RECOMMENDATIONS: 1. The patient's multiple sclerosis exacerbation will be treated with Solu-Medrol 1000 mg intravenously daily for 3 days. 2. MRI of the brain and cervical, thoracic, and lumbar spine will be obtained for further evaluation. Unfortunately due to the patient's GFR of 28, these studies will be without contrast only. 3. Physical therapy has been consulted to evaluate and treat the patient while she remains hospitalized. 4. Defer treatment of the remaining medical comorbidities to the primary and other services following the patient. Thank you for this consultation. I will continue to follow this patient while she remains in the hospital. Time spent: 70 minutes. Job[facility] [id number] [facility]
[2017-10-03] VITALS (7 sets, daily range): BP systolic 108–142; BP diastolic 61–78
[2017-10-03] MEDS: ACETAMINOPHEN/CODEINE 300MG - 30MG TAB PO PRN ×2 (02:00→19:21)
[2017-10-03 03:55] LABS: BASOPHILS % 0.1 % (0.0-1.0); HEMATOCRIT 31.1 % (34.2-44.1); HEMOGLOBIN 10.9 g/dL (12.0-16.0); LYMPHOCYTES # (AUTO) 1.3 (1.0-3.2); LYMPHOCYTES % 13.9 % (18.0-39.1); MEAN CORPUSCULAR HEMOGLOBIN 30.9 pg (28-32); MEAN CORPUSCULAR VOLUME 88.1 fL (81-99); MONOCYTES # (AUTO) 0.4 (0.2-0.8); MONOCYTES % 4.5 % (4.4-11.3); NEUTROPHILS # (AUTO) 7.3 (2.1-6.9); NEUTROPHILS % 81.3 % (38.7-80.0); PLATELET COUNT 354 x10e3/uL (140-360); RED BLOOD COUNT 3.53 x10e6/uL (3.6-5.1); RED CELL DISTRIBUTION WIDTH 12.1 % (11.7-14.4)
[2017-10-03 04:04] LABS: MAGNESIUM 1.8 MG/DL (1.3-2.1)
[2017-10-03 04:11] LABS: ALBUMIN 3.1 g/dL (3.5-5.0); ALBUMIN/GLOBULIN RATIO 0.9 (0.8-2.0); ANION GAP 13.6 mmol/L (8-16); CREATININE, SERUM 1.58 mg/dL (0.57-1.11); POTASSIUM 3.6 mmol/L (3.5-5.1)
[2017-10-03 04:31] LABS: FREE T4 (FREE THYROXINE) 1.24 ng/dL (0.9-1.8); THYROID STIMULATING HORMONE 0.307 uIU/mL (0.350-4.940)
[2017-10-03] MEDS ORDERED: LEVOTHYROXINE SODIUM 50 MCG TAB PO SCH ×2 (06:00→09:00)
[2017-10-03] MEDS ORDERED: SODIUM CHLORIDE 0.9% 1000ML 1,000 ML IV ONE (08:00)
[2017-10-03] MEDS: AMLODIPINE BESYLATE 10 MG TAB PO SCH (08:30)
[2017-10-03] MEDS: BACLOFEN 10 MG TAB PO SCH ×4 (08:30→21:06)
[2017-10-03] MEDS: DULOXETINE HCL 30 MG DELAYED RELEASE PO SCH (08:30)
[2017-10-03] MEDS: NYSTATIN 15 GM POWDER UD BTL TOP SCH ×2 (09:00→16:48)
[2017-10-03] MEDS ORDERED: NON-FORMULARY MEDICATION (Duloxetine Hcl (Cymbalta) 60 MG) PO SCH (09:00)
[2017-10-03] MEDS: NON-FORMULARY MEDICATION (Trospium Chloride 20 MG) PO SCH ×2 (09:00→17:00)
[2017-10-03] MEDS: METHYLPREDNISOLONE SOD SUCC IV SCH (12:46)
[2017-10-03] MEDS: SODIUM CHLORIDE 0.9% IV SCH (12:46)
--- NOTE | 2017-10-03 14:43 | Diagnostic Imaging Report ---
Exam: Brain MRI without without IV contrast History: Multiple sclerosis exacerbation Comparison studies: Brain MRI 11/20/2015 Technique: Axial DWI, sagittal T2 flair, axial T1, T1 FS, T2 FLAIR and coronal T1 fat sat. Findings: T2 lesion load: Number: Unchanged approximately 25-30 discrete lesions with slightly more confluent lesions in the right frontal and left inferior periatrial and bilateral occipital white matter. Size: Screening lesions range from 1 mm to approximately 12 mm. Location: Subcortical, deep centrum semiovale, pedraza radiata and periventricular white matter, right striatocapsular region and glenna. T1 hypointense foci: Moderately T1 hypointense lesion in the left frontal and left inferior periatrial white matter are unchanged. Unchanged nonspecific linear T1 hypointensity in the left inferior frontal region, possibly atypical perivascular space. Corpus callosum volume: Adequate for age Brain volume: Adequate for age Other: No extra axial fluid collection, hemorrhage, hydrocephalus or acute ischemia. IMPRESSION: Unchanged multiple supratentorial white matter demyelinating T2 lesions. No new T1 or T2 MS MS lesions. Signed by: Dr. Moni Pena M.D. on 10/03/2017 2:40 PM
--- NOTE | 2017-10-03 14:55 | Diagnostic Imaging Report ---
EXAMINATION: MRI of the cervical an thoracic spine without contrast. HISTORY: Multiple sclerosis exacerbation. COMPARISON: Cervical spine MRI 11/20/2015 TECHNIQUE: Sagittal T1, T2, STIR; axial T2. Image quality: Motion artifact limits evaluation particularly of the sagittal STIR and axial T2 spin-echo. FINDINGS: Spinal Cord: Spinal cord size: Normal size cervical spinal cord. Mild focal atrophy in the dorsal cord at the level of T9 and T11. T1 lesions: None T2 lesions: CERVICAL SPINAL CORD: cord T2 lesions as follows: Right lateral cord lesion at C2-C3. Left lateral cord lesion at C3-C4. Dorsal midline cord lesion at C7. THORACIC SPINAL CORD: T5: Right ventral cord and questionable left ventral cord. T8: Paired and bilateral lateral cord lesions. T9-T10: Right lateral and right posterolateral cord. Inferior endplate of T10 to inferior endplate of T11: Central and dorsal cord. Inferior endplate of T11 to inferior endplate of T12: Central and right lateral cord. Others: Vertebrae: Normal alignment, height, signal intensity. Discs: Persistent disc osteophyte, uncovertebral and facet processes from C4-C5 and C6-C7 with mild canal and foraminal narrowing. Craniocervical junction: Normal. IMPRESSION: 1. Unchanged previously seen 3 cervical spinal cord demyelinating T2 lesions. No new T1 or T2 MS lesions compared to MRI on 11/20/2015. 2. Approximately 7 thoracic spinal cord demyelinating T2 lesions, no prior study available for comparison. 3. Mild focal atrophy of the distal thoracic spinal cord at the level of T9 and T11. Signed by: Dr. Moni Pena M.D. on 10/03/2017 2:51 PM
--- NOTE | 2017-10-03 14:58 | Diagnostic Imaging Report ---
EXAMINATION: MRI of the lumbar spine without contrast HISTORY: New neurologic deficit, new symptoms, multiple sclerosis COMPARISON: None available TECHNIQUE: Sagittal T1, T2, STIR; axial T2 and proton density. FINDINGS: It is assumed that there are 5 lumbar vertebrae. Curvature/Alignment: Normal lordosis. Vertebrae: No evidence of recent fracture, infection, or neoplasm. Heterogeneous bone marrow signal intensity may be related to osteopenia. Minimal chronic compression deformity of the superior endplate of L2 without retropulsion or canal stenosis. Conus: Normal, terminating at T12-L1 Cauda equina: Unremarkable. Lower thoracic: Partially visualized distal thoracic spinal cord demyelinating T2 lesions at T10-T11. Paraspinal soft tissues: Severe atrophy of the paraspinal muscles and partially visualized gluteal muscles. Degenerative changes: L1-L2: Mild symmetric disc bulge without stenosis L2-L3: Mild symmetric disc bulge and facet arthrosis without stenoses L3-L4: Mild symmetric disc bulge and facet arthrosis without stenoses L4-L5: Mild symmetric disc bulge and facet arthrosis. Minimal foramina narrowing. L5-S1: Mild facet arthropathies. No stenoses IMPRESSION: 1. Mild degenerative changes of the lumbar spine without significant spinal canal or foraminal stenosis. No evidence of nerve root compression. 2. Partially visualized demyelinating T2 lesion in the distal thoracic spinal cord, please see dictation of thoracic spine MRI performed on the same day for further detail. Signed by: Dr. Moni Pena M.D. on 10/03/2017 2:55 PM
[2017-10-04] VITALS (8 sets, daily range): BP systolic 102–155; BP diastolic 52–67
[2017-10-04] MEDS: ACETAMINOPHEN/CODEINE 300MG - 30MG TAB PO PRN (02:42)
[2017-10-04 04:46] LABS: HEMATOCRIT 32.5 % (34.2-44.1); HEMOGLOBIN 11.2 g/dL (12.0-16.0); LYMPHOCYTES # (AUTO) 1.1 (1.0-3.2); LYMPHOCYTES % 11.9 % (18.0-39.1); MEAN CORPUSCULAR HEMOGLOBIN 31.3 pg (28-32); MEAN CORPUSCULAR HGB CONC 34.5 g/dL (31-35); MEAN CORPUSCULAR VOLUME 90.8 fL (81-99); MONOCYTES # (AUTO) 0.2 (0.2-0.8); MONOCYTES % 1.7 % (4.4-11.3); NEUTROPHILS # (AUTO) 7.7 (2.1-6.9); NEUTROPHILS % 85.5 % (38.7-80.0); PLATELET COUNT 373 x10e3/uL (140-360); RED BLOOD COUNT 3.58 x10e6/uL (3.6-5.1); RED CELL DISTRIBUTION WIDTH 12.5 % (11.7-14.4)
[2017-10-04 05:03] LABS: ANION GAP 12.8 mmol/L (8-16); CALCIUM 8.5 mg/dL (8.4-10.2); CREATININE, SERUM 1.24 mg/dL (0.57-1.11); MAGNESIUM 1.8 MG/DL (1.3-2.1); POTASSIUM 3.8 mmol/L (3.5-5.1)
[2017-10-04] MEDS: LEVOTHYROXINE SODIUM 75 MCG TAB PO SCH (06:17)
[2017-10-04] MEDS: NON-FORMULARY MEDICATION (Trospium Chloride 20 MG) PO SCH ×2 (09:00→17:00)
[2017-10-04] MEDS: AMLODIPINE BESYLATE 10 MG TAB PO SCH (09:22)
[2017-10-04] MEDS: BACLOFEN 10 MG TAB PO SCH ×3 (09:22→22:00)
[2017-10-04] MEDS: POLYETHYLENE GLYCOL 3350 17 GM PACK PO SCH ×2 (09:22→17:00)
[2017-10-04] MEDS: DOCUSATE SODIUM 100 MG CAP PO SCH ×2 (09:22→17:00)
[2017-10-04] MEDS: DULOXETINE HCL 30 MG DELAYED RELEASE PO SCH (09:22)
[2017-10-04] MEDS: NYSTATIN 15 GM POWDER UD BTL TOP SCH ×2 (09:30→17:00)
[2017-10-04] MEDS: METHYLPREDNISOLONE SOD SUCC IV SCH (10:30)
[2017-10-04] MEDS: SODIUM CHLORIDE 0.9% IV SCH (10:30)
[2017-10-05] VITALS (7 sets, daily range): BP systolic 96–141; BP diastolic 51–69
[2017-10-05] MEDS: LEVOTHYROXINE SODIUM 75 MCG TAB PO SCH (05:20)
[2017-10-05 05:21] LABS: BASOPHILS % 0.1 % (0.0-1.0); HEMATOCRIT 32.9 % (34.2-44.1); HEMOGLOBIN 11.1 g/dL (12.0-16.0); LYMPHOCYTES # (AUTO) 1.2 (1.0-3.2); LYMPHOCYTES % 13.5 % (18.0-39.1); MEAN CORPUSCULAR HEMOGLOBIN 30.9 pg (28-32); MEAN CORPUSCULAR HGB CONC 33.7 g/dL (31-35); MEAN CORPUSCULAR VOLUME 91.6 fL (81-99); MONOCYTES # (AUTO) 0.6 (0.2-0.8); MONOCYTES % 6.5 % (4.4-11.3); NEUTROPHILS # (AUTO) 7.1 (2.1-6.9); NEUTROPHILS % 79.2 % (38.7-80.0); PLATELET COUNT 384 x10e3/uL (140-360); RED BLOOD COUNT 3.59 x10e6/uL (3.6-5.1); RED CELL DISTRIBUTION WIDTH 12.6 % (11.7-14.4)
[2017-10-05 05:43] LABS: CALCIUM 8.3 mg/dL (8.4-10.2); CREATININE, SERUM 1.13 mg/dL (0.57-1.11); MAGNESIUM 1.9 MG/DL (1.3-2.1)
[2017-10-05] MEDS: NON-FORMULARY MEDICATION (Trospium Chloride 20 MG) PO SCH ×2 (09:00→16:40)
[2017-10-05] MEDS ORDERED: DIFLUCAN150 MG PO (09:23)
[2017-10-05] MEDS ORDERED: SYNTHROID75 MCG PO (09:23)
[2017-10-05] MEDS ORDERED: NYAMYC15 GM TOP (09:23)
[2017-10-05] MEDS ORDERED: FLUCONAZOLE 100 MG TAB PO ONE (10:00)
[2017-10-05] MEDS: BACLOFEN 10 MG TAB PO SCH ×4 (10:04→20:26)
[2017-10-05] MEDS: DULOXETINE HCL 30 MG DELAYED RELEASE PO SCH (10:04)
[2017-10-05] MEDS: AMLODIPINE BESYLATE 10 MG TAB PO SCH (10:04)
[2017-10-05] MEDS: NYSTATIN 15 GM POWDER UD BTL TOP SCH ×2 (10:05→16:40)
[2017-10-05] MEDS: POLYETHYLENE GLYCOL 3350 17 GM PACK PO SCH ×2 (10:05→16:43)
[2017-10-05] MEDS: DOCUSATE SODIUM 100 MG CAP PO SCH ×2 (10:05→16:43)
[2017-10-05] MEDS: ACETAMINOPHEN/CODEINE 300MG - 30MG TAB PO PRN (20:26)
[2017-10-06 00:03] VITALS: BP 102/68
[2017-10-06 05:08] VITALS: BP 119/62
[2017-10-06] MEDS: LEVOTHYROXINE SODIUM 75 MCG TAB PO SCH (05:32)
[2017-10-06 07:30] VITALS: BP 131/61
[2017-10-06 08:00] VITALS: BP 131/61
[2017-10-06] MEDS: NON-FORMULARY MEDICATION (Trospium Chloride 20 MG) PO SCH (08:40)
[2017-10-06] MEDS: AMLODIPINE BESYLATE 10 MG TAB PO SCH (08:41)
[2017-10-06] MEDS: DOCUSATE SODIUM 100 MG CAP PO SCH (08:41)
[2017-10-06] MEDS: DULOXETINE HCL 30 MG DELAYED RELEASE PO SCH (08:41)
[2017-10-06] MEDS: POLYETHYLENE GLYCOL 3350 17 GM PACK PO SCH (08:41)
[2017-10-06] MEDS: NYSTATIN 15 GM POWDER UD BTL TOP SCH (08:41)
[2017-10-06] MEDS: BACLOFEN 10 MG TAB PO SCH ×2 (08:41→13:04)
[2017-10-06 09:06] LABS: BASOPHILS % 0.1 % (0.0-1.0); EOSINOPHILS # (AUTO) 0.1 (0.0-0.4); EOSINOPHILS % 1.1 % (0.0-6.0); HEMATOCRIT 35.5 % (34.2-44.1); HEMOGLOBIN 11.9 g/dL (12.0-16.0); LYMPHOCYTES # (AUTO) 4.2 (1.0-3.2); LYMPHOCYTES % 45.5 % (18.0-39.1); MEAN CORPUSCULAR HEMOGLOBIN 31.2 pg (28-32); MEAN CORPUSCULAR HGB CONC 33.5 g/dL (31-35); MEAN CORPUSCULAR VOLUME 92.9 fL (81-99); MONOCYTES # (AUTO) 0.6 (0.2-0.8); MONOCYTES % 6.1 % (4.4-11.3); NEUTROPHILS # (AUTO) 4.3 (2.1-6.9); NEUTROPHILS % 46.7 % (38.7-80.0); PLATELET COUNT 381 x10e3/uL (140-360); RED BLOOD COUNT 3.82 x10e6/uL (3.6-5.1)
[2017-10-06 09:23] LABS: CALCIUM 8.6 mg/dL (8.4-10.2); CREATININE, SERUM 1.07 mg/dL (0.57-1.11); MAGNESIUM 1.9 MG/DL (1.3-2.1)
[2017-10-06] MEDS ORDERED: FLUCONAZOLE 100 MG TAB PO NR (10:00)
[2017-10-06 11:57] VITALS: BP 120/60
[2017-10-06 15:55] VITALS: BP 107/53
--- NOTE | 2017-10-06 17:26 | Discharge Summary ---
ADMISSION DIAGNOSES 1. Physical debility. 2. Hypertension. 3. Chronic kidney disease. 4. Hypothyroidism. 5. Frequent urinary tract infections. 6. Hypokalemia. 7. Buttock wound. 8. Bilateral groin and breast excoriation. DISCHARGE DIAGNOSES 1. Physical debility. 2. Hypertension. 3. Chronic kidney disease. 4. Hypothyroidism. 5. Frequent urinary tract infections. 6. Hypokalemia. 7. Buttock wound. 8. Bilateral groin and breast excoriation. 9. Ruled out urinary tract infection. HISTORY: Patient has a history of multiple sclerosis, recurrent UTIs, CKD, hypertension, hypothyroidism, neuropathy, past surgical history of hysterectomy, appendectomy, cholecystectomy, and right ankle surgery. HOSPITAL COURSE: A 67-year-old female complains of bilateral lower extremity weakness and dysuria that began yesterday. She says this usually happens when she has a UTI. She denies nausea, vomiting, diarrhea and fever. On admission Neurology was consulted due to her multiple sclerosis diagnosis. She was started on IV steroids, Solu-Medrol 1000 mg IV daily for 3 days. Patient had a chest x-ray which was negative. MRI of the T-spine showed unchanged previously seen 3 cervical spinal cord demyelinating T2 lesions, no new T1 or T2 lesions compared to MRI on November 2015, approximately 7 thoracic spinal cord demyelinating T2 lesions, no prior study available, mild focal atrophy of the distal thoracic spinal cord at the level of T9 and T11. MRI of the lumbar spine showed mild degenerative changes of the lumbar spine without significant spinal canal or foraminal stenosis, no evidence of nerve root compression, partially visualized demyelinating T2 lesion in the distal thoracic spinal cord. MRI of the C-spine showed same as discussed on the previous MRI. MRI of the brain showed unchanged multiple supratentorial white matter demyelinating T2 lesions, no new T1 or T2 MS lesion. Blood cultures were negative. Urine cultures were negative. Vital signs stable, patient afebrile. After 3 days of IV steroids, patient says she is feeling stronger. She was able to discharge home yesterday, but discharge was held because no one was able to be at home to accept her. So, she stayed again overnight and will discharge home today on October 06, 2017. Her daughter will be at home. She will be discharged with a reduced dose of levothyroxine and nystatin for her excoriation. She will continue her home medicines as per the discharge med rec. Patient understands discharge instructions and agrees to plan. Dictated by: Kylah Philippe NP EBER MERINO MD Job#: [id number] EV
== END 2017-10-06 16:42 | disposition home or self-care (01) | DRG 60 ==
LOC: ER 05:09 → ERHOLD 07:26 → MED/SURG2 08:56
PROVIDERS: ADMIT Internal Medicine; ATTEND Internal Medicine
DX: G35 Multiple sclerosis (principal); I12.9 Hypertensive chronic kidney disease with stage 1 through stage 4 chronic kidney disease, or unspecified chronic kidney disease; N18.9 Chronic kidney disease, unspecified; E03.9 Hypothyroidism, unspecified; G62.9 Polyneuropathy, unspecified; L89.312 Pressure ulcer of right buttock, stage 2; R53.81 Other malaise; E87.6 Hypokalemia; S20.111A Abrasion of breast, right breast, initial encounter; S30.811A Abrasion of abdominal wall, initial encounter; Z87.440 Personal history of urinary (tract) infections
CPT/HCPCS: 36415; 51700; 70551; 71045; 72141; 72146; 72148; 80048; 80053; 81001; 82550; 82553; 83605; 83735; 83880; 84439; 84443; 84484; 85025; 85610; 85651; 85730; 87040; 87086; 93005; 97139; 99284; J2930; J7030

== ENCOUNTER 2018-02-13 09:32 | Inpatient (IN) | payer MEDICARE ==
[~2018-02-13] VITALS: Ht 165.1 cm; Wt 83.2 kg
[~2018-02-13 09:32] MED LIST changes: +DIFLUCAN150 MG PO; +NYAMYC15 GM TOP; +SYNTHROID75 MCG PO
[2018-02-13] MEDS ORDERED: MORPHINE SULFATE 2 MG/ML SYR IV NR (11:45)
[2018-02-13] MEDS ORDERED: ONDANSETRON HCL INJ 2 MG/ML VIAL IV NR (11:45)
[2018-02-13 11:56] LABS: BASOPHILS % 0.7 % (0.0-1.0); EOSINOPHILS # (AUTO) 0.1 (0.0-0.4); EOSINOPHILS % 1.8 % (0.0-6.0); HEMATOCRIT 36.6 % (34.2-44.1); HEMOGLOBIN 11.9 g/dL (12.0-16.0); LYMPHOCYTES # (AUTO) 2.1 (1.0-3.2); LYMPHOCYTES % 38.7 % (18.0-39.1); MEAN CORPUSCULAR HEMOGLOBIN 30.9 pg (28-32); MEAN CORPUSCULAR HGB CONC 32.5 g/dL (31-35); MEAN CORPUSCULAR VOLUME 95.1 fL (81-99); MONOCYTES # (AUTO) 0.5 (0.2-0.8); MONOCYTES % 9.1 % (4.4-11.3); NEUTROPHILS # (AUTO) 2.7 (2.1-6.9); NEUTROPHILS % 49.5 % (38.7-80.0); PLATELET COUNT 401 x10e3/uL (140-360); RED BLOOD COUNT 3.85 x10e6/uL (3.6-5.1); RED CELL DISTRIBUTION WIDTH 13.3 % (11.7-14.4)
[2018-02-13] MEDS ORDERED: MORPHINE SULFATE INJ 4 MG/ML INJ IV NR (12:00)
--- NOTE | 2018-02-13 12:10 | NUR ---
first attempt to strait cath for urine was not successful, patient was reporting too much discomfort. er md ordered pain and nausea meds. will attempt after medical attendant
[2018-02-13 12:14] LABS: ALBUMIN 3.2 g/dL (3.5-5.0); ALBUMIN/GLOBULIN RATIO 0.8 (0.8-2.0); CALCIUM 10.2 mg/dL (8.4-10.2); CREATININE, SERUM 1.94 mg/dL (0.57-1.11)
[2018-02-13] MEDS ORDERED: SODIUM CHLORIDE 0.9% 1000ML 1,000 ML IV SCH (12:45)
[2018-02-13 13:09] LABS: CLARITY,URINE HAZY (CLEAR); COLOR,URINE YELLOW (YELLOW); LEUKOCYTE ESTERASE ,URINE TRACE (NEGATIVE); NITRITE,URINE NEGATIVE (NEGATIVE); PROTEIN,URINE DIPSTICK NEGATIVE (NEGATIVE)
[2018-02-13 13:10] LABS: BILIRUBIN,URINE NEGATIVE (NEGATIVE); KETONES,URINE TRACE (NEGATIVE); URINE UROBILINOGEN 0.2 mg/dL (0.2 - 1)
[2018-02-13 13:18] LABS: BACTERIA,URINE MODERATE /HPF; EPITHELIAL CELLS,URINE FEW /LPF; MUCUS,URINE FEW (RARE); RBC,URINE 0-5 /HPF (0-5)
[2018-02-13] MEDS ORDERED: MEROPENEM 1GRAM 1 GM in SODIUM CHLORIDE 0.9% 100 ML 100 ML IV NR (13:30)
[2018-02-13] MEDS ORDERED: METHYLPREDNISOLONE SOD SUCC 1,000 MG/8 ML VIAL IV ONE (13:45)
[2018-02-13] MEDS: MEROPENEM 500MG 500 MG in SODIUM CHLORIDE 0.9% 50ML 50 ML IV SCH (14:11)
[2018-02-13] MEDS: SODIUM CHLORIDE 0.9% 1000ML 1,000 ML IV SCH ×2 (14:47→23:39)
[2018-02-13] MEDS: ONDANSETRON HCL INJ 2 MG/ML VIAL IV PRN (23:49)
[2018-02-13] MEDS: MORPHINE SULFATE INJ 4 MG/ML INJ IV PRN (23:49)
[2018-02-14] MEDS: SODIUM CHLORIDE 0.9% 1000ML 1,000 ML IV SCH ×2 (00:20→03:00)
[2018-02-14] MEDS: MEROPENEM 500MG 500 MG in SODIUM CHLORIDE 0.9% 50ML 50 ML IV SCH ×2 (02:56→14:51)
[2018-02-14] MEDS: MORPHINE SULFATE INJ 4 MG/ML INJ IV PRN ×3 (04:30→14:09)
[2018-02-14] MEDS: ONDANSETRON HCL INJ 2 MG/ML VIAL IV PRN ×3 (04:32→14:09)
[2018-02-14 05:54] LABS: HEMATOCRIT 35.3 % (34.2-44.1); HEMOGLOBIN 11.5 g/dL (12.0-16.0); LYMPHOCYTES # (AUTO) 0.8 (1.0-3.2); LYMPHOCYTES % 15.9 % (18.0-39.1); MEAN CORPUSCULAR HEMOGLOBIN 31.5 pg (28-32); MEAN CORPUSCULAR HGB CONC 32.6 g/dL (31-35); MEAN CORPUSCULAR VOLUME 96.7 fL (81-99); MONOCYTES % 0.4 % (4.4-11.3); NEUTROPHILS # (AUTO) 4.1 (2.1-6.9); NEUTROPHILS % 83.1 % (38.7-80.0); PLATELET COUNT 387 x10e3/uL (140-360); RED BLOOD COUNT 3.65 x10e6/uL (3.6-5.1); RED CELL DISTRIBUTION WIDTH 13.1 % (11.7-14.4)
[2018-02-14 06:09] LABS: CALCIUM 8.8 mg/dL (8.4-10.2); CREATININE, SERUM 1.56 mg/dL (0.57-1.11)
[2018-02-14] MEDS ORDERED: HYDRALAZINE HCL 20 MG/ML VIAL IV PRN (07:30)
[2018-02-14] MEDS ORDERED: ACETAMINOPHEN 325 MG TAB PO PRN (07:30)
[2018-02-14] MEDS ORDERED: TRIAMTERENE/HCTZ 37.5-25 MG TAB PO SCH (09:00)
[2018-02-14] MEDS ORDERED: NON-FORMULARY MEDICATION (Duloxetine Hcl (Cymbalta) 60 MG) PO SCH (09:00)
[2018-02-14] MEDS: FAMOTIDINE 20 MG/2 ML VIAL IV SCH ×2 (10:25→18:26)
[2018-02-14] MEDS: DULOXETINE HCL 30 MG DELAYED RELEASE PO SCH (10:25)
[2018-02-14] MEDS ORDERED: TECFIDERA PO (11:27)
[2018-02-14 17:02] VITALS: BP 104/54
[2018-02-14 17:22] VITALS: BP 104/54
--- NOTE | 2018-02-14 17:50 | NUR ---
PAGED AND TALKED TO DR. WHITE REGARDING CONSULTATION. GOT NEW ORDERS
[2018-02-14] MEDS: METHYLPREDNISOLONE SOD SUCC 1,000 MG in SODIUM CHLORIDE 0.9% 250ML 250 ML IV SCH (18:30)
--- NOTE | 2018-02-14 19:03 | NUR ---
RECEIVED PATIENT FROM THE EMERGENCY ROOM VIA STRETCHER. ALERT AND ORIENTED. IV TO RIGHT ANTECUBITAL SITE WITH GAUGE 18 NEEDLE PATENT AND INFUSING WELL. ASSESSMENT DONE. ROTATING PRESSURE TO BED AND SCDS ON BOTH LEGS APPLIED. INSTRUCT THE PATIENT REGARDING HOSPITAL POLICY AND ROUTINE. BED LOW AND LOCKED. CALL LIGHT WITHIN REACH.
--- NOTE | 2018-02-14 19:07 | NUR ---
PATIENT RESTING IN BED. BED SIDE REPORT GIVEN TO ONCOMING NURSE.
--- NOTE | 2018-02-14 19:11 | NUR ---
PAGED AND TALKED DR WHITE REGARDING HOME MEDS TECFIDERA AND TROSPIUM CHLORIDE GOT THE ORDER TO RENEW THE MEDS
[2018-02-14] MEDS: TROSPIUM CHLORIDE 20 MG PO SCH (19:30)
[2018-02-14] MEDS: TECFIDERA 240MG PO SCH (19:45)
[2018-02-14 20:41] VITALS: BP 106/51
[2018-02-14] MEDS ORDERED: METHYLPREDNISOLONE SOD SUCC 125 MG/2ML VIAL IV SCH (21:00)
[2018-02-15] VITALS (9 sets, daily range): BP systolic 116–138; BP diastolic 54–64
[2018-02-15] MEDS ORDERED: MEROPENEM 500 MG VIAL ONE ×3 (03:14→15:38)
[2018-02-15] MEDS ORDERED: SODIUM CHLORIDE 0.9% 50ML 50 ML ONE ×2 (03:15→15:35)
[2018-02-15] MEDS: MEROPENEM 500MG 500 MG in SODIUM CHLORIDE 0.9% 50ML 50 ML IV SCH (03:25)
[2018-02-15] MEDS ORDERED: LEVOTHYROXINE SODIUM 75 MCG TAB PO SCH (06:00)
[2018-02-15 06:45] LABS: BASOPHILS % 0.1 % (0.0-1.0); HEMATOCRIT 33.2 % (34.2-44.1); HEMOGLOBIN 11.1 g/dL (12.0-16.0); LYMPHOCYTES # (AUTO) 0.8 (1.0-3.2); LYMPHOCYTES % 5.6 % (18.0-39.1); MEAN CORPUSCULAR HEMOGLOBIN 31.7 pg (28-32); MEAN CORPUSCULAR HGB CONC 33.4 g/dL (31-35); MEAN CORPUSCULAR VOLUME 94.9 fL (81-99); MONOCYTES # (AUTO) 0.1 (0.2-0.8); NEUTROPHILS # (AUTO) 12.4 (2.1-6.9); NEUTROPHILS % 92.6 % (38.7-80.0); PLATELET COUNT 392 x10e3/uL (140-360); RED CELL DISTRIBUTION WIDTH 13.3 % (11.7-14.4)
[2018-02-15 07:04] LABS: ANION GAP 13.9 mmol/L (8-16); CALCIUM 8.4 mg/dL (8.4-10.2); CREATININE, SERUM 1.48 mg/dL (0.57-1.11); MAGNESIUM 2.1 MG/DL (1.3-2.1); POTASSIUM 3.9 mmol/L (3.5-5.1)
[2018-02-15] MEDS ORDERED: GABAPENTIN300 MG PO (07:08)
[2018-02-15] MEDS: MORPHINE SULFATE INJ 4 MG/ML INJ IV PRN ×4 (07:08→22:02)
[2018-02-15 07:26] LABS: FREE T4 (FREE THYROXINE) 0.78 ng/dL (0.9-1.8); THYROID STIMULATING HORMONE 1.183 uIU/mL (0.350-4.940)
[2018-02-15] MEDS: TECFIDERA 240MG PO SCH ×2 (09:00→17:00)
[2018-02-15] MEDS: TROSPIUM CHLORIDE 20 MG PO SCH ×2 (09:00→17:00)
[2018-02-15] MEDS: DULOXETINE HCL 30 MG DELAYED RELEASE PO SCH (10:18)
[2018-02-15] MEDS: FAMOTIDINE 20 MG/2 ML VIAL IV SCH ×2 (10:18→19:16)
[2018-02-15] MEDS: METHYLPREDNISOLONE SOD SUCC 1,000 MG in SODIUM CHLORIDE 0.9% 250ML 250 ML IV SCH (10:43)
[2018-02-15] MEDS ORDERED: BACLOFEN 20 MG PO SCH (13:00)
[2018-02-15] MEDS: BACLOFEN 10 MG TAB PO SCH ×3 (13:58→21:38)
--- NOTE | 2018-02-15 18:11 | Diagnostic Imaging Report ---
EXAMINATION: MRI of the brain without contrast . HISTORY: Multiple sclerosis flare up for last 2 days, moderate acute renal failure. COMPARISON: Brain MRI on 10/03/2017 TECHNIQUE: Axial DWI, T1, T2, T2 FLAIR, sagittal T2 FLAIR, Axial And Coronal T1 Fat Sat. Image quality: Motion artifact limits the evaluation of some of the sequences. FINDINGS: T2 lesions: Unchanged approximately 25-30 discrete lesions with slightly more confluent lesions in the right frontal and left inferior periatrial and bilateral occipital white matter. The size of the lesions range from 1 mm to approximately 12 mm. Location: Subcortical, deep centrum semiovale, pedraza radiata and periventricular white matter, right striatocapsular region and glenna. T1 lesions: Moderately T1 hypointense lesion in the left frontal and left inferior periatrial white matter are unchanged. Also unchanged linear T1 hypointensity in the left inferior frontal region. Corpus callosum volume: Normal for age. Brain volume: Normal for age. Other: No mass, hydrocephalus, hemorrhage, acute or chronic infarcts IMPRESSION: Mildly suboptimal study due to motion artifact. In spite of this limitation not significantly changed mostly supratentorial white matter demyelinating T2 lesions. No discrete new MS lesions when compared to MRI on 10/03/2017. Signed by: Dr. Moni Pena M.D. on 02/15/2018 6:07 PM
--- NOTE | 2018-02-15 18:17 | Diagnostic Imaging Report ---
EXAMINATION: MRI of the cervical spine without contrast. HISTORY: Multiple sclerosis, flare up for last 2 days COMPARISON: Cervical spine MRI 10/03/2017 TECHNIQUE: Sagittal T1, T2, STIR; axial T1, T2. Image quality: Motion artifact limits evaluation of most of the sequences. FINDINGS: Spinal Cord: Spinal cord size: Normal T1 lesions: None T2 lesions: Poorly visualized due to motion artifact, grossly unchanged T2 lesions as follows: Right lateral cord lesion at C2-C3. Left lateral cord lesion at C3-C4. Dorsal midline cord lesion at C7. Others: Vertebrae: Normal alignment, height, signal intensity. Discs: Persistent degenerative changes at C4-C5, C5-C6 and C6-C7 with mild canal and foraminal narrowing. Craniocervical junction: Normal. IMPRESSION: Very suboptimal study due to motion artifact, grossly unchanged previously seen 3 cervical spinal cord demyelinating T2 lesions, grossly no new MS lesions. Signed by: Dr. Moni Pena M.D. on 02/15/2018 6:14 PM
[2018-02-15] MEDS: SODIUM CHLORIDE 0.9% 1000ML 1,000 ML IV SCH ×2 (18:41→21:38)
--- NOTE | 2018-02-15 19:30 | NUR ---
Received patient awake on bed, with ongoing IV fluids, not in distress, no complaints of pain at this time. Call light within reached, advised to call for assistance when needed.Will continue to monitor
--- NOTE | 2018-02-15 21:59 | Consultation ---
DATE OF CONSULTATION: February 15, 2018 NEUROLOGY CONSULT NOTE HISTORY OF PRESENT ILLNESS: Ms. Medina is a 67-year-old [id number] woman with past medical history significant for relapsing remitting multiple sclerosis and thyroid disease, admitted to [facility] on February 13, 2018 with a multiple sclerosis exacerbation, urinary tract infection, and acute kidney injury. As regards to the possible multiple sclerosis exacerbation, Ms. Medina endorses numbness and weakness affecting both legs. Though the patient is confined to a wheelchair, she is able to assist with transfers. However, the patient has been unable to do this for the past few days. In addition, the patient reports the sensation in her legs is diminished as compared to her baseline. In addition to weakness and numbness affecting both legs, the patient endorses some weakness and numbness affecting both hands. The previously described symptoms have been present for several days. Concerned she was having a multiple sclerosis exacerbation, the patient presented to the emergency center at [facility] for further evaluation. While in the emergency center, the patient was found to have a urinary tract infection as well as acute kidney injury. Therefore, Ms. Medina was admitted to [facility] as an inpatient for treatment of multiple sclerosis exacerbation, urinary tract infection, and acute kidney injury. The patient's outpatient neurologist is Dr. Kong Worley. Since her last hospitalization for multiple sclerosis exacerbation in September of 2017, Dr. Worley has made some adjustments to the patient's disease modifying therapy. Treatment with Copaxone has been discontinued and replaced with Taxotere. Ms. Medina is taking trospium twice daily as well. Ms. Medina continues to take baclofen for spasticity and Cymbalta for pain. REVIEW OF SYSTEMS: Weakness affecting both legs, numbness affecting both legs, numbness affecting both hands, gait impairment. Otherwise, the 12-point review of systems is negative. PAST MEDICAL HISTORY: Thyroid disease, relapsing remitting multiple sclerosis, multiple urinary tract infections. PAST SURGICAL HISTORY: Cholecystectomy in January 2015, left knee arthroscopy in 1995, partial hysterectomy in 1986, right ankle surgery in the , tonsillectomy, appendectomy. FAMILY MEDICAL HISTORY: The patient's paternal and maternal grandparents are . Their medical histories are unknown. The patient's father is from leukemia. Her mother at the age of 90 years from natural causes. Ms. Medina has 4 sisters, all of whom are alive and healthy. The patient has 1 son and 1 daughter, both of whom are alive and healthy. SOCIAL HISTORY: Ms. Medina is single. She is a retired administrative job titles. The patient does report a history of tobacco use, but quit smoking cigarettes in December 2014. The patient does not report current or prior alcohol or recreational drug use. HOME MEDICATIONS: Reviewed. Please see the list of home medications available in electronic medical record. ALLERGIES: NO KNOWN DRUG ALLERGIES. NO KNOWN FOOD ALLERGIES. NO KNOWN ALLERGIES TO LATEX. NO KNOWN ALLERGIES TO IODINE OR OTHER CONTRAST MATERIALS. PHYSICAL EXAMINATION: VITAL SIGNS: Height 65 inches, weight 165 pounds, BMI 27.16 kg/sq m. Blood pressure 124/70 mmHg, pulse 81 beats per minute, respiratory rate 18 breaths per minute, oxygen saturation 97% on room air. GENERAL: The patient is awake and alert, does not appear distressed. HEENT: Normocephalic, atraumatic. Pupils are equal, round, and reactive to light. Moist mucous membranes. NECK: Supple. No appreciable thyromegaly. No appreciable carotid bruits. CARDIOVASCULAR: S1, S2, regular rate and rhythm. No murmurs, rubs, or gallops. RESPIRATORY: Clear to auscultation bilaterally. No wheezes, rhonchi, or rales. EXTREMITIES: The skin is warm and dry. No clubbing, cyanosis, or edema. The posterior tibial and dorsalis pedis pulses are 2+ and symmetric. SKIN: No rashes or lesions. NEUROLOGIC EXAMINATION: MEMORY/ATTENTION: The patient is awake and alert, oriented to person, place, time, and situation. CRANIAL NERVES: Cranial nerve I - not tested. Cranial nerves II, III, IV, and - Pupils are equal and round, reacts briskly to light (from 4 mm to 2 mm). Extraocular movements intact. No nystagmus. Cranial nerve V - Sensation to light touch is intact in the bilateral V1 through V3 distributions. Strength of the temporalis and masseter muscles is within normal limits. Cranial nerve VII - The face is symmetric as are all facial movements. Strength is within normal limits. Cranial nerve VIII - Hearing is diminished to finger rub on the left, intact to finger rub on the right. Cranial nerves IX, X - The soft palate elevates equally and symmetrically. Cranial nerve XI - Normal strength of the bilateral sternocleidomastoid and trapezius muscles. Cranial nerve XII - The tongue protrudes midline and moves symmetrically from side to side. STRENGTH: Bulk is normal. Strength is 5/5 in the bilateral deltoids, biceps, triceps, wrist flexors and extensors, 4/5 in the bilateral finger flexors, 4/5 in the bilateral intrinsic hand muscles. Strength is grossly 0/5 to 1/5 in the left lower extremity. Strength is 2/5 in the right lower extremity. Tone is decreased in both legs. DTRs: Deep tendon reflexes are 1+ and symmetric at the triceps, biceps, brachioradialis, and patellas. Deep tendon reflexes are absent and symmetric at the Achilles. The plantar responses are extensor on the left and flexor on the right. SENSATION: Intact to light touch in both arms and both legs. CEREBELLAR: Deferred. GAIT: Deferred. SPEECH: Spontaneous speech is normal without appreciable dysarthria or aphasia. Repetition is intact. INVOLUNTARY MOVEMENTS: None. PRONATOR DRIFT: As per motor exam. LABORATORY DATA: The most recent basic metabolic panel is significant for an elevated chloride of 109, an elevated BUN of 32, an elevated creatinine of 1.48, a decreased estimated glomerular filtration rate of 35, and an elevated serum glucose of 126. A liver function panel collected on February 13, 2018 was unremarkable. Creatine kinase 45. TSH 1.183, free T4 0.78. A urinalysis was significant for a specific gravity of 1.020, trace ketones, trace leukocyte esterase, 11 to 20 white blood cells, and moderate urine bacteria. A urine culture grew greater than 100,000 CFU per mL Escherichia coli. DIAGNOSTIC STUDIES: None. ASSESSMENT AND PLAN: Ms. Medina is a 67-year-old [id number] woman with past medical history significant for relapsing remitting multiple sclerosis, admitted to [facility] on February 13, 2018 with symptoms suspicious for a multiple sclerosis exacerbation, a urinary tract infection, and acute kidney injury. The patient has undergone a thorough neurological examination with findings detailed above. The patient's laboratory data and other diagnostic studies have been reviewed and are documented above. It is possible the worsening weakness in the patient's legs as well as the numbness in the patient's legs and hands is due to a multiple sclerosis exacerbation. However, Ms. Medina experienced similar symptoms during her admission in September of 2017. In the setting of a urinary tract infection, these new/worsening symptoms may represent recrudescence of prior deficits. RECOMMENDATIONS: As follows: 1. Repeat neuro imaging will be ordered. Unfortunately, due to the patient's compromised kidney function, noncontrast studies will be necessary. A MRI of the brain without contrast as well as a MRI of the cervical spine without contrast will be ordered to evaluate for worsening disease when compared to the prior studies performed in September of 2017. 2. Treatment with the patient's home medications of Taxotere, trospium, baclofen, and Cymbalta will be continued. 3. Ms. Medina will be given Solu-Medrol 1000 mg intravenously daily for 3 days as treatment for a multiple sclerosis exacerbation. 4. Defer treatment of the remaining medical comorbidities to the primary and other services following the patient. Thank you for this consultation. I will continue to follow the patient while she remains in the hospital. TIME SPENT: 70 minutes. Job#: [id number] DR GODINEZ
[2018-02-16] VITALS (8 sets, daily range): BP systolic 138–164; BP diastolic 61–74
[2018-02-16] MEDS: MEROPENEM 500MG/ NS 50ML 50 ML IV SCH ×2 (03:28→15:21)
[2018-02-16 05:04] LABS: BASOPHILS % 0.1 % (0.0-1.0); HEMATOCRIT 33.7 % (34.2-44.1); HEMOGLOBIN 11.2 g/dL (12.0-16.0); LYMPHOCYTES # (AUTO) 0.8 (1.0-3.2); LYMPHOCYTES % 5.5 % (18.0-39.1); MEAN CORPUSCULAR HEMOGLOBIN 30.9 pg (28-32); MEAN CORPUSCULAR HGB CONC 33.2 g/dL (31-35); MEAN CORPUSCULAR VOLUME 92.8 fL (81-99); MONOCYTES % 6.9 % (4.4-11.3); NEUTROPHILS # (AUTO) 13.1 (2.1-6.9); NEUTROPHILS % 87.1 % (38.7-80.0); PLATELET COUNT 360 x10e3/uL (140-360); RED BLOOD COUNT 3.63 x10e6/uL (3.6-5.1); RED CELL DISTRIBUTION WIDTH 13.2 % (11.7-14.4)
[2018-02-16 05:28] LABS: ANION GAP 14.3 mmol/L (8-16); CALCIUM 8.5 mg/dL (8.4-10.2); CREATININE, SERUM 1.29 mg/dL (0.57-1.11); PHOSPHORUS 2.5 MG/DL (2.3-4.7); POTASSIUM 3.3 mmol/L (3.5-5.1)
--- NOTE | 2018-02-16 08:05 | NUR ---
Pt n bed with eyes open. aox4 and able to verbalize needs. Denies any pain at this time. Breaths are even and unlabored. Continues on IVF @ 50ml/hr.
[2018-02-16] MEDS: FAMOTIDINE 20 MG/2 ML VIAL IV SCH ×2 (08:29→17:49)
[2018-02-16] MEDS: DULOXETINE HCL 30 MG DELAYED RELEASE PO SCH (08:29)
[2018-02-16] MEDS: BACLOFEN 10 MG TAB PO SCH ×4 (08:30→21:26)
[2018-02-16] MEDS: TROSPIUM CHLORIDE 20 MG PO SCH ×2 (08:30→17:00)
[2018-02-16] MEDS: TECFIDERA 240MG PO SCH ×2 (08:30→17:00)
[2018-02-16] MEDS: METHYLPREDNISOLONE SOD SUCC 1,000 MG in SODIUM CHLORIDE 0.9% 250ML 250 ML IV SCH (09:31)
--- NOTE | 2018-02-16 11:00 | NUR ---
Notified BLENDER / COOK for Dr. Ocampo of elevated WBCs and low potassium. Pt is afebrile at this time. Pt is on high dose IV steroids at this time. No new orders received for elevated WBCs. New orders for KCL 40Meq X1 dose to replace potassium.
[2018-02-16] MEDS ORDERED: POTASSIUM CHLORIDE 20 MEQ TAB CR PO NR (11:45)
--- NOTE | 2018-02-16 15:38 | NUR ---
CASE MANAGEMENT INITIAL ASSESSMENT Superintendent Pier to bedside to discuss plan of care with patient/family. CM/SW role and care transitions discussed. Anticipated discharge plan discussed along with duration of care. CM/SW discussed patients right to make decisions in care. CM/SW work hours given. 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 Other Services: NONE Employment Status: DISABLED Areas of Concerns: NONE Referral Needs: [facility] Education Needs: NONE IMM/DWYER given and signed (if applicable): Goal for discharge: GO TO [facility] CM/SW left business card at the bedside with contact information. Name and number was also written on the patients whiteboard. Patient verbalized understanding of discussion. CM will follow-up with ongoing discharge and transition of care needs.
[2018-02-16] MEDS ORDERED: ACETAMINOPHEN 325 MG TAB PO PRN (18:00)
--- NOTE | 2018-02-16 19:25 | NUR ---
Received patient awake in bed, no complaints of pain at this time, not in distress. Call light within easy reach, bed alarm on, bed is locked and low position. Will continue to monitor
[2018-02-16] MEDS: SODIUM CHLORIDE 0.9% 1000ML 1,000 ML IV SCH (21:26)
[2018-02-17 00:44] VITALS: BP 155/88
--- NOTE | 2018-02-17 01:15 | NUR ---
Igor ELECTRIC DETECTOR OPERATOR came and seen pt, informed of pt's hallucinations
[2018-02-17] MEDS: MEROPENEM 500MG/ NS 50ML 50 ML IV SCH (02:54)
[2018-02-17 04:09] LABS: BASOPHILS % 0.1 % (0.0-1.0); HEMATOCRIT 32.9 % (34.2-44.1); HEMOGLOBIN 11.3 g/dL (12.0-16.0); LYMPHOCYTES # (AUTO) 0.8 (1.0-3.2); LYMPHOCYTES % 6.6 % (18.0-39.1); MEAN CORPUSCULAR HEMOGLOBIN 31.3 pg (28-32); MEAN CORPUSCULAR HGB CONC 34.3 g/dL (31-35); MEAN CORPUSCULAR VOLUME 91.1 fL (81-99); MONOCYTES # (AUTO) 0.7 (0.2-0.8); MONOCYTES % 6.1 % (4.4-11.3); NEUTROPHILS # (AUTO) 10.6 (2.1-6.9); NEUTROPHILS % 86.6 % (38.7-80.0); PLATELET COUNT 362 x10e3/uL (140-360); RED BLOOD COUNT 3.61 x10e6/uL (3.6-5.1); RED CELL DISTRIBUTION WIDTH 13.2 % (11.7-14.4)
[2018-02-17 04:31] LABS: ANION GAP 16.3 mmol/L (8-16); CALCIUM 8.5 mg/dL (8.4-10.2); CREATININE, SERUM 1.05 mg/dL (0.57-1.11); MAGNESIUM 1.7 MG/DL (1.3-2.1); POTASSIUM 3.3 mmol/L (3.5-5.1)
[2018-02-17 06:03] VITALS: BP 159/72
--- NOTE | 2018-02-17 07:00 | NUR ---
SHIFT REPORT RECEIVED FROM NIGHT RN. PT DENIES NEEDS AT THIS TIME.
[2018-02-17 07:51] VITALS: BP 151/71
[2018-02-17 09:00] VITALS: BP 151/71
[2018-02-17] MEDS ORDERED: AMLODIPINE BESYLATE 10 MG TAB PO SCH (09:00)
[2018-02-17] MEDS: TECFIDERA 240MG PO SCH ×3 (09:00→17:18)
[2018-02-17] MEDS: TROSPIUM CHLORIDE 20 MG PO SCH ×3 (09:00→17:18)
[2018-02-17] MEDS: FAMOTIDINE 20 MG/2 ML VIAL IV SCH ×2 (09:18→17:18)
[2018-02-17] MEDS: DULOXETINE HCL 30 MG DELAYED RELEASE PO SCH (09:19)
[2018-02-17] MEDS: BACLOFEN 10 MG TAB PO SCH ×3 (09:19→17:18)
[2018-02-17] MEDS: SODIUM CHLORIDE 0.9% 1000ML 1,000 ML IV SCH (11:00)
[2018-02-17] MEDS ORDERED: CEFTRIAXONE SOD 1 GM VIAL IV SCH (11:45)
[2018-02-17] MEDS ORDERED: POTASSIUM CHLORIDE 20 MEQ TAB CR PO NR (11:45)
[2018-02-17 12:00] VITALS: BP 145/66
[2018-02-17] MEDS ORDERED: CEFTRIAXONE SOD 1 GM/NS 50 ML 50 ML IV SCH (12:30)
--- NOTE | 2018-02-17 14:23 | NUR ---
PT ACCEPTED AT [facility] [address], [place] [facility] [address] CALL REPORT TO [phone] ROOM [address] AND MAINTAINING CARE WITH DR MERINO. RTF FILLED OUT AND GIVEN TO NURSE, [place] FILED IN CHART WITH COPY TO BE SENT TO FACILITY WITH PATIENT. DISCHARGE FORM FILED IN CHART.
[2018-02-17 16:00] VITALS: BP 128/60
[2018-02-17] MEDS ORDERED: CEFTRIAXONE1 GM IV (16:07)
--- NOTE | 2018-02-17 16:20 | Discharge Summary ---
ADMISSION DIAGNOSES 1. Urinary tract infection. 2. Multiple sclerosis. 3. Hypertension. 4. Hypothyroidism. 5. Depression. 6. Chronic kidney disease, 3. DISCHARGE DIAGNOSES 1. Urinary tract infection. 2. Multiple sclerosis. 3. Hypertension. 4. Hypothyroidism. 5. Depression. 6. Chronic kidney disease, 3. 7. Ruled out cerebrovascular accident. 8. Urinary tract infection with Escherichia coli. 9. Hypokalemia. HISTORY: The patient has a history of MS, recurrent urinary tract infections, CKD, 3, hypertension, hypothyroidism, neuropathy. PAST SURGICAL HISTORY: Hysterectomy, appendectomy, cholecystectomy, right ankle surgery. FAMILY HISTORY: Noncontributory. SOCIAL HISTORY: Noncontributory. The patient quit tobacco use 5 years ago. HOSPITAL COURSE: A 67-year-old female who complains of headaches, bilateral hand tingling and worsening leg weakness over the last couple of days. These symptoms usually occur when she has a UTI per patient report. She denies dysuria, hematuria and fever. On admission, the UA was positive for leukocytes, WBCs and bacteria. The patient was started on Merrem, which was later switched to Rocephin per urine culture results. The patient's TSH and free T4 were within normal limits. MRI of the brain showed no discreet new MS lesions when compared to MRI of 10/03/17. MRI of the C-spine showed very suboptimal study due to motion artifact, grossly unchanged previously seen 3 cervical spine demyelinating 2T lesions, grossly no new MS lesions. Neurology was consulted who gave the patient 3 days of Solu-Medrol 1000 mg IV and home medicines for her MS. The patient was given a dose of morphine for pain, which she says set her back. She was hallucinating so the patient will [facility] as she gains her strength back to baseline. The patient will resume all hospital meds with just 3 more days of Rocephin for the UTI. Vital signs stable. The patient is afebrile. The patient understands discharge instructions and agrees to plan. Dictated by: Kylah Philippe NP EBER MERINO MD Job#: [id number]
--- NOTE | 2018-02-17 16:20 | NUR ---
IMM letter delivered and explained to pt. She verbalized understanding. Signed copy placed in chart. Copy to pt.
--- NOTE | 2018-02-17 16:36 | NUR ---
CALLED DAUGHTER, CHRISTINE MCCORMICK TO INFORM OF TRANSFER TO [facility].
== END 2018-02-17 19:23 | DRG 690 ==
LOC: ER 09:32 → ERHOLD 15:31 → MED/SURG2 02-14 15:49
PROVIDERS: ADMIT Internal Medicine; ATTEND Internal Medicine
DX: N39.0 Urinary tract infection, site not specified (principal); N17.9 Acute kidney failure, unspecified; B96.20 Unspecified Escherichia coli [E. coli] as the cause of diseases classified elsewhere; G35 Multiple sclerosis; I12.9 Hypertensive chronic kidney disease with stage 1 through stage 4 chronic kidney disease, or unspecified chronic kidney disease; N18.3 Chronic kidney disease, stage 3 (moderate); Z87.440 Personal history of urinary (tract) infections; E03.9 Hypothyroidism, unspecified; G62.9 Polyneuropathy, unspecified; F32.9 Major depressive disorder, single episode, unspecified; E87.6 Hypokalemia
CPT/HCPCS: 36415; 70551; 72141; 80048; 80053; 81001; 82550; 82948; 83735; 84100; 84439; 84443; 85025; 87086; 87186; 96361; 97139; 99284; J0696; J2185; J2270; J2405; J2930; J7030; J7050

== ENCOUNTER 2019-01-10 08:43 | Inpatient (IN) | payer MEDICARE ==
[~2019-01-10] VITALS: Ht 165.1 cm; Wt 76.7 kg
[~2019-01-10 08:43] MED LIST changes: +CEFTRIAXONE1 GM IV; +GABAPENTIN300 MG PO; +TECFIDERA PO
[2019-01-10] MEDS ORDERED: SODIUM CHLORIDE 0.9% 1000ML 1,000 ML IV STA (08:49)
[2019-01-10 09:12] LABS: BASOPHILS # (AUTO) 0.1 (0.0-0.1); BASOPHILS % 1.5 % (0.0-1.0); EOSINOPHILS # (AUTO) 0.2 (0.0-0.4); EOSINOPHILS % 3.5 % (0.0-6.0); HEMATOCRIT 37.4 % (34.2-44.1); HEMOGLOBIN 12.5 g/dL (12.0-16.0); LYMPHOCYTES # (AUTO) 1.9 (1.0-3.2); LYMPHOCYTES % 35.5 % (18.0-39.1); MEAN CORPUSCULAR HEMOGLOBIN 31.6 pg (28-32); MEAN CORPUSCULAR HGB CONC 33.4 g/dL (31-35); MEAN CORPUSCULAR VOLUME 94.4 fL (81-99); MONOCYTES # (AUTO) 0.5 (0.2-0.8); MONOCYTES % 9.5 % (4.4-11.3); NEUTROPHILS # (AUTO) 2.7 (2.1-6.9); NEUTROPHILS % 49.8 % (38.7-80.0); PLATELET COUNT 307 x10e3/uL (140-360); RED BLOOD COUNT 3.96 x10e6/uL (3.6-5.1); RED CELL DISTRIBUTION WIDTH 12.8 % (11.7-14.4)
[2019-01-10 09:21] LABS: INR 0.81; PROTHROMBIN TIME 11.6 seconds (11.9-14.5)
[2019-01-10] MEDS ORDERED: FAMOTIDINE 20 MG/2 ML VIAL IV ONE (09:30)
[2019-01-10 09:32] LABS: ALBUMIN 3.5 g/dL (3.5-5.0); ALBUMIN/GLOBULIN RATIO 1.3 (0.8-2.0); ANION GAP 12.4 mmol/L (8-16); CALCIUM 9.6 mg/dL (8.4-10.2); CREATININE, SERUM 1.09 mg/dL (0.57-1.11); MAGNESIUM 2.1 MG/DL (1.3-2.1); POTASSIUM 3.4 mmol/L (3.5-5.1)
--- NOTE | 2019-01-10 09:47 | Diagnostic Imaging Report ---
History:Left leg weakness Comparison studies:MR brain 02/15/2018 Technique: Axial images were obtained from the skull base to the vertex. Coronal and sagittal images reconstructed from the axial data. Intravenous contrast: None Dose modulation, iterative reconstruction, and/or weight based adjustment of the mA/kV was utilized to reduce the radiation dose to as low as reasonably achievable. Findings: Scalp/skull: No abnormalities. Extra-axial spaces: No masses. No fluid collections. Brain sulci: Mildly prominent. Ventricles: Mild compensatory dilatation. No hydrocephalus. Parenchyma: Scattered small hypodensities in the supratentorial white matter are nonspecific. No masses, hemorrhage, acute or chronic cortical vascular insults. Sellar/suprasellar region: No abnormalities. Craniocervical junction: Patent foramen magnum. No Chiari one malformation. Incidental findings: Atherosclerotic calcifications in the carotid siphons . Impression: No acute abnormalities. Chronic findings: 1. Scattered small white matter hypodensities, nonspecific and better seen on previous MRI brain, most consistent with the clinical history of multiple sclerosis. Signed by: DR Nato Lloyd M.D. on 01/10/2019 9:43 AM
[2019-01-10] MEDS ORDERED: METHYLPREDNISOLONE SOD SUCC 1,000 MG/8 ML VIAL IV ONE (10:00)
[2019-01-10 10:15] LABS: CREATINE KINASE MB 1.1 ng/mL (0-5.0); THYROID STIMULATING HORMONE 3.711 uIU/mL (0.350-4.940)
[2019-01-10] MEDS ORDERED: ONDANSETRON HCL INJ 2MG/ML 2ML 2 MG/ML VIAL IV PRN (10:15)
--- NOTE | 2019-01-10 10:20 | Diagnostic Imaging Report ---
Chest, 1 view, 01/10/2019. History: Weakness. Comparison: None available. Findings: The cardiomediastinal silhouette and pulmonary vasculature are within normal limits for a portable exam. There is no focal consolidation or pleural effusion. There are no acute osseous or soft tissue abnormalities. Colonic diaphragmatic interpositioning is incidentally noted. Impression: No acute cardiopulmonary abnormality. Signed by: Aldo Armendariz on 01/10/2019 10:17 AM
[2019-01-10] MEDS: SODIUM CHLORIDE 0.9% 1000ML 1,000 ML IV SCH ×3 (10:23→20:41)
[2019-01-10] MEDS ORDERED: POTASSIUM CHLORIDE 20 MEQ TAB CR PO ONE (10:30)
[2019-01-10 12:07] LABS: BILIRUBIN,URINE NEGATIVE (NEGATIVE); CLARITY,URINE SL CLOUDY (CLEAR); COLOR,URINE YELLOW (YELLOW); KETONES,URINE NEGATIVE (NEGATIVE); LEUKOCYTE ESTERASE ,URINE NEGATIVE (NEGATIVE); NITRITE,URINE POSITIVE (NEGATIVE); PROTEIN,URINE DIPSTICK NEGATIVE (NEGATIVE); URINE UROBILINOGEN 0.2 mg/dL (0.2 - 1)
[2019-01-10 12:31] LABS: BACTERIA,URINE MANY /HPF; EPITHELIAL CELLS,URINE FEW /LPF; RBC,URINE 0-5 /HPF (0-5)
[2019-01-10 12:33] LABS: AMORPHOUS SEDIMENT,URINE FEW (FEW)
[2019-01-10 13:06] VITALS: BP 106/53
[2019-01-10 13:14] VITALS: BP 106/53
[2019-01-10 13:15] VITALS: BP 106/53
--- NOTE | 2019-01-10 13:18 | NUR ---
PATIENT ARRIVED ON THE UNIT AT 1235 PER STRETCHER FROM THE ER. PATIENT IS AWAKE AND IN STABLE CONDITION WITH NO S/S OF RESPIRATORY DISTRESS. NO PAIN VOICED. IV FLUIDS INFUSING. TELEMETRY APPLIED. AIR PUMP APPLIED. BED ALARM APPLIED. CALL LIGHT IS WITHIN REACH, PATIENT INSTRUCTED TO CALL FOR ASSISTANCE NEEDED.
[2019-01-10] MEDS ORDERED: METHYLPREDNISOLONE SOD SUCC 1,000 MG in SODIUM CHLORIDE 0.9% 250ML 250 ML IV ONE (14:00)
[2019-01-10] MEDS: ACETAMINOPHEN/CODEINE 300MG - 30MG TAB PO PRN ×2 (14:33→20:42)
[2019-01-10 16:00] VITALS: BP 120/58
[2019-01-10] MEDS ORDERED: FAMOTIDINE 20 MG/2 ML VIAL IV SCH (17:00)
[2019-01-10 17:56] LABS: CREATINE KINASE 37 IU/L (29-168)
--- NOTE | 2019-01-10 18:35 | NUR ---
DR. WHITE ON THE UNIT- DR. WHITE SPOKE WITH RN REGARDING IV ANTIBIOTIC AND PATIENT'S URINE RESULTS. RN INFORMED N.P. OF DR. WHITE'S INQUIRY- NO NEW ORDERS RECEIVED AT THIS TIME.
[2019-01-10 20:00] VITALS: BP 119/55
--- NOTE | 2019-01-10 20:30 | NUR ---
RECEIVED PT IN BED AOX2 .RESPIRATIONS ARE EVEN AND UNLABORED REDNESS TO THE SACRUM CHANGED THE PT APPLIED OUR WICK IV INFUSING NS AT 125CC/HR .CALL LIGHT WITH IN REACH
[2019-01-10 20:32] VITALS: BP 120/58
[2019-01-10] MEDS: BACLOFEN 10 MG TAB PO SCH (20:41)
[2019-01-10] MEDS ORDERED: BACLOFEN 20 MG PO SCH (21:00)
[2019-01-10] MEDS: ENOXAPARIN SOD INJ 40 MG/0.4 ML SYR SC SCH (22:00)
[2019-01-10] MEDS: FAMOTIDINE 20 MG TAB PO SCH (22:00)
[2019-01-10] MEDS: CEFTRIAXONE SOD 1 GM/NS 50 ML 50 ML IV SCH (22:00)
[2019-01-11] VITALS (8 sets, daily range): BP systolic 100–124; BP diastolic 54–59
--- NOTE | 2019-01-11 01:16 | Consultation ---
DATE OF CONSULTATION: 01/10/2019 Neurology Consult Note HISTORY OF PRESENT ILLNESS: Ms. Medina is a 68-year-old right-hand dominant woman with past medical history significant for relapsing, remitting multiple sclerosis and multiple urinary tract infections, admitted to [facility] as an inpatient on January 10, 2019, with lower extremity weakness, suspicious for multiple sclerosis exacerbation. Ms. Medina reports awakening at approximately 0200 on the day of admission; when she awoke, the patient reports her left leg was "frozen." Specifically, Ms. Medina reports she was unable to move her left leg at all. In addition, they do not need to be done stat. In addition to being unable to move her left leg, the patient reports a sharp pain in and around the left knee as well as over the left foot. Ms. Medina reports being at her neurological baseline prior to 0200 on January 10, 2019. However, the patient subsequently reports progressively worsening weakness affecting both legs for the past one week. Ms. Medina reports urinary frequency and urgency as well. However, she does not report burning with urination or a foul odor of the urine. Ms. Medina presented to the emergency center at [facility] on the morning of January 10, 2019, for further evaluation of her symptoms. Upon admission to the emergency center, the patient was afebrile with a blood pressure of 103/33 mmHg and a pulse of 82 beats per minute. In the emergency center, the patient's neurological examination was significant for "constant, generalized weakness of the left leg (0/5 no contraction)." No other deficits were noted. While in the emergency center, routine blood and urine studies were significant for findings compatible with chronic kidney disease stage IIIA, and a probable urinary tract infection. A CT of the brain without contrast was performed while the patient was in the emergency center. This study did not reveal evidence of recent large territorial ischemia or hemorrhage. Numerous hypodensities were seen throughout the brain, compatible with the patient's known diagnosis of relapsing remitting multiple sclerosis. Ms. Medina was subsequently admitted to [facility] as an inpatient for further evaluation and treatment of her symptoms. While in the emergency center, the patient did receive Solu-Medrol 1 g intravenously. REVIEW OF SYSTEMS: Weakness of both legs, left greater than right, right ankle pain, pain in the left knee and left foot, sacral decubitus ulcer, urinary frequency, urinary urgency. Otherwise, a 12-point review of systems is negative. 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 PAST SURGICAL HISTORY: Last cholecystectomy in January 2015, left knee arthroscopy in 1995, partial hysterectomy in 1986, right ankle surgery in the , appendectomy, tonsillectomy. PAST HOSPITALIZATIONS: Surgeries/procedures as listed, multiple hospitalizations for urinary tract infections, multiple hospitalizations for multiple sclerosis exacerbations. FAMILY MEDICAL HISTORY: The patient's father is from leukemia. Ms. Medina mother at the age of 90 years from natural causes. The patient has four sisters, all of whom are alive and healthy. Ms. Medina has one son and one daughter, both of whom are alive and healthy. SOCIAL HISTORY: Ms. Medina is single. She is retired. The patient does report a prior history of tobacco use, but quit smoking cigarettes in December 2014. The patient does not report current or prior alcohol or recreational drug use. HOME MEDICATIONS: 1. Baclofen 20 mg by mouth 4 times daily. 2. Fluoxetine 60 mg by mouth daily. 3. Gabapentin 300 mg by mouth twice daily. 4. Trospium 20 mg by mouth twice daily. 5. Triamterene-hydrochlorothiazide 75-50 mg one tablet by mouth daily. 6. Taxotere. HOSPITAL MEDICATIONS: 1. Tylenol No 3. 2. Pepcid. 3. Zofran. ALLERGIES: NO KNOWN DRUG ALLERGIES. NO KNOWN FOOD ALLERGIES. NO KNOWN ALLERGIES TO LATEX. NO KNOWN ALLERGIES TO IODINE OR OTHER CONTRAST MATERIALS. PHYSICAL EXAMINATION: VITAL SIGNS: Height 65 inches, weight 169 pounds, BMI 28.1 kg/m2, blood pressure 139/78 mmHg, pulse is 82 beats per minute, respiratory rate 19 breaths per minute, and oxygen saturation 95% on room air. GENERAL: The patient is awake and alert, does not appear distressed. Overweight. HEENT: Normocephalic, atraumatic. Pupils are equal, round, and reactive to light. Moist mucous membranes. NECK: Supple. No appreciable thyromegaly. No appreciable carotid bruits. CARDIOVASCULAR: S1, S2, regular rate and rhythm. No murmurs, rubs, or gallops. RESPIRATORY: Clear to auscultation bilaterally. No wheezes, rhonchi, or rales. EXTREMITIES: The skin is warm and dry. No clubbing, cyanosis, or edema. The posterior tibial and dorsalis pedis pulses are 2+ and symmetric. SKIN: No rashes or lesions. Ms. Medina reportedly has erythema with blanching over the sacrum. NEUROLOGIC: Memory/Attention: The patient is awake and alert, oriented to person, place, time, and situation. Cranial Nerves: Cranial nerve I - not tested. Cranial nerve II, III, IV, and - pupils are equal and round, react briskly to light (from 4 mm to 2 mm). Extraocular movements intact. No nystagmus. Positive bilateral ptosis, left slightly greater than right. Cranial nerve V - sensation to light touch and pinprick is intact in the bilateral V1 through V3 distributions. Strength in the temporalis and masseter muscles is within normal limits. Cranial nerve VII - the face is symmetric as are all facial movements. Strength is within normal limits. Cranial nerve VIII - hearing is diminished to finger rub on the left, intact on the right. Cranial nerve 9, 10- the soft palate elevates equally and symmetrically. Cranial nerve XI - normal strength of the bilateral sternocleidomastoid and trapezius muscles. Cranial nerve 12-the tongue protrudes midline and moves symmetrically from [id number]. Strength: Bulk is normal. Strength is 5/5 in the bilateral deltoids, biceps, triceps, wrist flexors and extensors, finger flexors and extensors, and 4/5 in the intrinsic hand muscles. Strength is grossly 0 to 1/5 in the left leg. Strength is grossly 2/5 in the right leg. Tone is diminished in both legs. DTRs: Deep tendon reflexes are 1+ and symmetric at the triceps, biceps, brachioradialis, and patellas. Deep tendon reflexes are absent and symmetric at the Achilles. Plantar responses are extensor on the left, flexor on the right. Sensation: Sensation is intact to light touch and pinprick in both arms and both legs. Cerebellar: Hllety-xevj-aujxbq movements are intact without dysmetria or other impairment. Heel-birch movements are impaired, but within the bounds of paresis. Gait: Deferred. Speech: Spontaneous speech is normal without appreciable dysarthria or aphasia. Repetition is intact. Involuntary movements: None. Pronator Drift: As per motor exam. LABORATORY DATA: A comprehensive metabolic panel is significant for potassium of 3.4, BUN of 31, estimated GFR of 50, and total protein is 6.3. Cardiac enzymes are negative x2. B-natriuretic peptide 45.4. Lipase 18. TSH 3.711. The CBC with differential and platelets is unremarkable. A coagulation profile is within normal limits. A urinalysis reveals slightly cloudy urine with positive nitrites, 6-10 white blood cells, many urine bacteria with few urine epithelial cells. Urine and blood cultures are pending. DIAGNOSTIC STUDIES: Electrocardiogram 01/10/2019: Normal sinus rhythm at 81 beats per minute. Chest x-ray 01/10/2019: No acute cardiopulmonary abnormality. CT of the brain without contrast 01/10/2019: On my review, there is no evidence of recent or remote large territorial ischemia, hemorrhage, mass, or mass effect. There is mild diffuse cerebral atrophy with compensatory dilatation of the ventricles, appropriate for the patient's age. There are scattered small hypodensities within the supratentorial white matter compatible with the patient's known diagnosis of multiple sclerosis. ASSESSMENT AND PLAN: Ms. Medina is a 68-year-old right-hand dominant woman with past medical history significant for relapsing remitting multiple sclerosis and frequent urinary tract infections, admitted to [facility] as an inpatient on 01/10/2019 with progressively worsening lower extremity weakness, left greater than right, urinary frequency, and urinary urgency of one weeks' duration. The patient has undergone a thorough neurological examination with findings detailed above. Ms. Medina's laboratory data and other diagnostic studies have been reviewed and are documented above. It is possible the patient has progressively worsening lower extremity weakness is due to a multiple sclerosis exacerbation. However, another possible diagnosis is recrudescence of prior deficits in the setting of urinary tract infection. RECOMMENDATIONS: As follows: 1. MRIs of the brain, cervical spine, thoracic spine, and lumbar spine without contrast will be ordered. Unfortunately, due to the patient's chronic kidney disease, contrasted studies cannot be performed. If new lesions are seen on these neuroimaging studies, treatment with Solu-Medrol 1000 mg intravenously daily x2 days will be prescribed. 2. Continue the patient's home medications, including: Trospium for neurogenic bladder, baclofen for spasticity, and gabapentin and Cymbalta for pain. 3. As stated above, it does appear Ms. Medina has a urinary tract infection. Treatment with intravenous antibiotics is recommended-defer to the primary service. Follow up the results of the urine and blood cultures. 4. Defer treatment of the remaining medical comorbidities to the primary and other services following the patient. 5. Anticipated discharge: Home with home health versus group home facility in 2-3 days. Thank you for this consultation. I will continue to follow the patient while she remains in the hospital. TIME SPENT: 70 minutes. Radha Bruner MD CP/PAULO /[id number] MTDD
[2019-01-11] MEDS: ACETAMINOPHEN/CODEINE 300MG - 30MG TAB PO PRN ×3 (03:39→19:40)
[2019-01-11 04:00] LABS: CREATINE KINASE 38 IU/L (29-168)
[2019-01-11 06:03] LABS: HEMATOCRIT 36.9 % (34.2-44.1); HEMOGLOBIN 12.3 g/dL (12.0-16.0); LYMPHOCYTES # (AUTO) 0.6 (1.0-3.2); LYMPHOCYTES % 16.5 % (18.0-39.1); MEAN CORPUSCULAR HEMOGLOBIN 31.4 pg (28-32); MEAN CORPUSCULAR HGB CONC 33.3 g/dL (31-35); MEAN CORPUSCULAR VOLUME 94.1 fL (81-99); MONOCYTES # (AUTO) 0.1 (0.2-0.8); MONOCYTES % 1.5 % (4.4-11.3); NEUTROPHILS # (AUTO) 2.7 (2.1-6.9); NEUTROPHILS % 81.7 % (38.7-80.0); PLATELET COUNT 315 x10e3/uL (140-360); RED BLOOD COUNT 3.92 x10e6/uL (3.6-5.1); RED CELL DISTRIBUTION WIDTH 12.7 % (11.7-14.4)
[2019-01-11] MEDS ORDERED: HYDRALAZINE HCL 20 MG/ML VIAL IV PRN (06:15)
[2019-01-11] MEDS ORDERED: ACETAMINOPHEN 325 MG TAB PO PRN (06:15)
[2019-01-11] MEDS ORDERED: ONDANSETRON HCL INJ 2MG/ML 2ML 2 MG/ML VIAL IV PRN (06:15)
[2019-01-11 06:25] LABS: ALBUMIN 3.3 g/dL (3.5-5.0); ALBUMIN/GLOBULIN RATIO 1.1 (0.8-2.0); ANION GAP 12.5 mmol/L (8-16); CALCIUM 9.2 mg/dL (8.4-10.2); CREATININE, SERUM 1.12 mg/dL (0.57-1.11); PHOSPHORUS 3.6 MG/DL (2.3-4.7); POTASSIUM 3.5 mmol/L (3.5-5.1)
--- NOTE | 2019-01-11 07:16 | NUR ---
PATIENT IS AWAKE, ALERT, AND IN STABLE CONDITION WITH NO S/S OF RESPIRATORY DISTRESS. NO PAIN VOICED. IV FLUIDS INFUSING. BARRIER CREAM APPLIED TO PATIENT'S SACRUM/BUTTOCKS- PUREWICK AND DIAPER APPLIED. BED ALARM APPLIED. CALL LIGHT IS WITHIN REACH, PATIENT INSTRUCTED TO CALL FOR ASSISTANCE NEEDED.
--- NOTE | 2019-01-11 07:23 | NUR ---
BEDSIDE REPORT GIVEN TO THE ONCOMING NURSE
[2019-01-11] MEDS: BACLOFEN 10 MG TAB PO SCH ×4 (08:33→20:36)
[2019-01-11] MEDS: FAMOTIDINE 20 MG TAB PO SCH ×2 (08:33→16:40)
[2019-01-11] MEDS: CEFTRIAXONE SOD 1 GM/NS 50 ML 50 ML IV SCH ×2 (08:33→20:36)
[2019-01-11] MEDS ORDERED: NON-FORMULARY MEDICATION (Trospium Chloride 20 MG) PO SCH (09:00)
[2019-01-11] MEDS: SODIUM CHLORIDE 0.9% 1000ML 1,000 ML IV SCH ×2 (10:01→19:06)
--- NOTE | 2019-01-11 10:43 | NUR ---
WOUND CARE CONSULT FOR 68 YO FEMALE HX OF MS AND LOWER EXTREMITY WEAKNESS SOL 19 PATIENT ON CONSERVATIVE PUP WITH ALTERNATING PRESSURE MATTRESS LABS: WBC- 3.34,HGB- 12.3, GLUCOSE - 139 BLOOD CULTURE PENDING SKIN ASSESSMENT COMPLETE PATIENT PRESENTS WITH RED UNOPENED RASH TO RIGHT AND LEFT BUTTOCKS RECOMMENDATIONS:NURSING TO CONTINUE TO MAINTAIN CONSERVATIVE PUP INTERVENTIONS NURSING TO CONTINUE TO MAINTAIN CLEAN DRY EBONIE AREA AND BUTTOCKS NURSING TO CONTINUE TO ASSIST PATIENT TO SIT FOR MEALS AND MUCH TOLERATED NURSING TO APPLY CALAZIME SKIN PROTECTANT PASTE DAILY AND NEEDED AFTER CLEANING TO RED AREAS TO RIGHT AND LEFT BUTTOCKS Addendum: 01/11/19 at 1052 by Sukhdev Johnson RN Amended: Links added.
--- NOTE | 2019-01-11 10:47 | NUR ---
PT SIGNED CHOICE FOR [facility], FAXED CLINICALS PAS[facility] AND COMPLETED RTF TO PUT WITH PACKET
--- NOTE | 2019-01-11 11:19 | NUR ---
EDUCATED ABOUT IMM, SIGNED, FILED IN CHART, WITH COPY LEFT WITH FAMILY AT BEDSIDE.
--- NOTE | 2019-01-11 12:50 | NUR ---
PATIENT OFF THE UNIT TO MRI- PATIENT IN STABLE CONDITION WITH NO S/S OF RESPIRATORY DISTRESS.
--- NOTE | 2019-01-11 14:36 | NUR ---
PATIENT BACK ON THE UNIT FROM MRI- PATIENT IS IN STABLE CONDITION WITH NO S/S OF RESPIRATORY DISTRESS. CALL LIGHT IS WITHIN REACH, PATIENT INSTRUCTED TO CALL FOR ASSISTANCE NEEDED.
--- NOTE | 2019-01-11 15:19 | Diagnostic Imaging Report ---
Examination: MRI BRAIN WO CONTRAST HISTORY:Multiple sclerosis. Follow-up examination. COMPARISON:Brain MRI performed February 15, 2018 TECHNIQUE: Sagittal FLAIR; axial T1, T2, FLAIR; DWI. Contrast: None. FINDINGS: T2 lesions: Number: Unchanged 25-30 discrete and confluent lesions in the posterior bilateral periventricular white matter and manuelito T2 lesions. Location: Periventricular, deep, callosal septal interface, juxtacortical white matter. Right striatocapsular region. Manuelito. T1 "black holes": Unchanged moderately hypointense lesions in the left frontal periventricular and right periatrial white matter. There are no lesions of cerebrospinal fluid equivalent intensity. Enhancing lesions: Not able to be assessed. Corpus callosum volume: Within normal limits, unchanged. Brain volume: Normal limits for age, unchanged. IMPRESSION: No new lesion. Unchanged nonspecific white matter lesions which can be seen in the clinical diagnosis of multiple sclerosis. Signed by: Dr. Joellen Siegel M.D. on 01/11/2019 3:16 PM
--- NOTE | 2019-01-11 16:05 | NUR ---
Visit made by the Spiritual Care Department Pastoral Visitor, Simona Griggs. PV provided pastoral presence, prayer, hospitality, and supportive listening. Pastoral Visitor informed pt/family of the scope of Emergency Room Clinician Services and availability. SANA DAMON Hook Loader Spiritual Care Department O: [phone] Pager: [phone] ([phone] number calling from)
--- NOTE | 2019-01-11 16:34 | NUR ---
LONGTERM FACILITY DISCHARGE INFORMATION PATIENT HAS BEEN ACCEPTED TO: NAME: [facility] ADDRESS: [id number] MD: ANGELIQUE ROOM: [id number] NURSE CALL REPORT TO: [phone]
[2019-01-11] MEDS: GABAPENTIN 300 MG CAP PO SCH (16:40)
[2019-01-11] MEDS: DULOXETINE HCL 30 MG DELAYED RELEASE PO SCH (16:40)
[2019-01-11] MEDS: ENOXAPARIN SOD INJ 40 MG/0.4 ML SYR SC SCH (16:42)
[2019-01-11] MEDS ORDERED: NON-FORMULARY MEDICATION (Duloxetine Hcl (Cymbalta) 60 MG) PO SCH (17:00)
--- NOTE | 2019-01-11 19:04 | NUR ---
PATIENT IS IN STABLE CONDITION WITH NO S/S OF RESPIRATORY DISTRESS- NO PAIN VOICED AT THIS TIME. IV FLUIDS INFUSING. HEEL PROTECTORS APPLIED. BED ALARM APPLIED. CALL LIGHT IS WITHIN REACH, PATIENT INSTRUCTED TO CALL FOR ASSISTANCE NEEDED. REPORT GIVEN TO ONCOMING NURSE.
--- NOTE | 2019-01-11 19:30 | NUR ---
patient received awake, alert, lying quietly in bed. patient c/o left knee/leg pain. ivf continue to infuse without difficulty. pm assessment complete. patient instructed to call for assistance when needed.
--- NOTE | 2019-01-11 19:40 | NUR ---
patient medicated with tylenol #3 1 tab po for c/o pain at this time per patients request.
[2019-01-11] MEDS: NON-FORMULARY MEDICATION (Trospium Chloride 20 MG) PO SCH (21:04)
[2019-01-12] VITALS: BP 126/58
--- NOTE | 2019-01-12 03:20 | NUR ---
am labs drawn at this time.
[2019-01-12 03:48] LABS: BASOPHILS % 0.3 % (0.0-1.0); EOSINOPHILS # (AUTO) 0.1 (0.0-0.4); EOSINOPHILS % 0.8 % (0.0-6.0); HEMATOCRIT 35.9 % (34.2-44.1); HEMOGLOBIN 12.1 g/dL (12.0-16.0); LYMPHOCYTES # (AUTO) 1.7 (1.0-3.2); LYMPHOCYTES % 21.4 % (18.0-39.1); MEAN CORPUSCULAR HEMOGLOBIN 31.7 pg (28-32); MEAN CORPUSCULAR HGB CONC 33.7 g/dL (31-35); MONOCYTES # (AUTO) 0.6 (0.2-0.8); MONOCYTES % 7.8 % (4.4-11.3); NEUTROPHILS # (AUTO) 5.5 (2.1-6.9); NEUTROPHILS % 69.6 % (38.7-80.0); PLATELET COUNT 293 x10e3/uL (140-360); RED BLOOD COUNT 3.82 x10e6/uL (3.6-5.1); RED CELL DISTRIBUTION WIDTH 13.2 % (11.7-14.4)
[2019-01-12 04:00] VITALS: BP 135/67
[2019-01-12 04:05] LABS: ANION GAP 12.2 mmol/L (8-16); CALCIUM 8.9 mg/dL (8.4-10.2); CREATININE, SERUM 1.17 mg/dL (0.57-1.11); POTASSIUM 3.2 mmol/L (3.5-5.1)
[2019-01-12] MEDS: SODIUM CHLORIDE 0.9% 1000ML 1,000 ML IV SCH (05:08)
[2019-01-12] MEDS ORDERED: POTASSIUM CHLORIDE 20 MEQ TAB CR PO NR (06:45)
[2019-01-12] MEDS ORDERED: BISACODYL 10 MG SUPP PR NR ×2 (07:45→11:30)
[2019-01-12 07:48] VITALS: BP 133/69
[2019-01-12 08:04] VITALS: BP 133/69
[2019-01-12] MEDS: CEFTRIAXONE SOD 1 GM/NS 50 ML 50 ML IV SCH (08:56)
[2019-01-12] MEDS: BACLOFEN 10 MG TAB PO SCH ×3 (08:56→16:53)
[2019-01-12] MEDS: FAMOTIDINE 20 MG TAB PO SCH ×2 (08:56→16:54)
[2019-01-12] MEDS ORDERED: LORATADINE/PSEUDOEPHEDRINE 24 HR SR TAB PO SCH (09:00)
--- NOTE | 2019-01-12 09:43 | NUR ---
Spoke with Dr. Bruner to see if pt needs to have another dose of IV solumedrol and states she does not need other dose of IV steroid. States that pt can discharge from her standpoint.
--- NOTE | 2019-01-12 10:14 | NUR ---
EDUCATED ABOUT IMM, SIGNED, FILED IN CHART, WITH COPY LEFT WITH FAMILY AT BEDSIDE.
[2019-01-12] MEDS: NON-FORMULARY MEDICATION (Trospium Chloride 20 MG) PO SCH (10:41)
[2019-01-12] MEDS ORDERED: CEFEPIME 1GM/NS 0.9% 50 ML 50 ML IV SCH (12:00)
[2019-01-12 12:03] VITALS: BP 130/70
--- NOTE | 2019-01-12 12:16 | Diagnostic Imaging Report ---
Examination: MRI SPINE LUMBAR WO CONTRAST History: Multiple sclerosis, follow up. Comparison studies: October 03, 2017 MRI Technique: Sagittal and axial T2 , sagittal T1 and STIR. Findings: Number of lumbar vertebral bodies: Five. Alignment: Normal lordosis. No scoliosis. Soft tissues: No T2 hyperintense inflammatory changes. Posterior paraspinal soft tissues and muscles: No abnormality. Lower thoracic cord: Normal in morphology with focal increased signal in the posterior conus. The tip of the conus is at T12. Cauda equina: No masses. No arachnoiditis. Vertebrae: No fractures, infection or neoplasm. Degenerative changes: L1-L2: Mild diffuse disc bulge. No foraminal or canal stenosis. L2-L3: Mild diffuse disc bulge and mild bilateral facet arthropathy. No foraminal or canal stenosis. L3-L4: Mild retrolisthesis. Uncovering of asymmetric to the right disc bulge and moderate bilateral facet arthropathy result in mild right neural foraminal narrowing. No canal or left foraminal stenosis. L4-L5: Mild diffuse disc bulge and mild bilateral facet arthropathy result in mild bilateral neural foraminal narrowing. No canal stenosis. L5-S1: No abnormalities. IMPRESSION: Unchanged single lesion at the posterior conus at T12 when compared to prior lumbar spine MRI performed October 03, 2017. Mild degenerative changes without canal or significant (not moderate or severe) foraminal stenosis. Signed by: Dr. Joellen Siegel M.D. on 01/12/2019 12:13 PM
--- NOTE | 2019-01-12 12:23 | Diagnostic Imaging Report ---
Examination:MRI SPINE THORACIC WO CONTRAST HISTORY: Multiple sclerosis. Follow-up examination. COMPARISON: Thoracic spine MRI performed October 03, 2017 TECHNIQUE: Sagittal T1, T2 and STIR. Axial T2. Intravenous contrast: None. FINDINGS: Spinal cord size: Normal, unchanged. Enhancing lesions: Not able to be assessed given lack of intravenous contrast. T2 lesions: T7-T8: Right and left lateral port. T8-T9: Right lateral cord. Holocord at T10 with right posterior cord at T10-T11. Right bennett-cord at T11-T12. Previously seen right lateral cord lesion at T5 is not appreciated on current study. No new lesions. T1 lesions: None. Vertebrae: Normal alignment, height, and signal intensity. Discs: No abnormalities. IMPRESSION: No new lesion. Unchanged nonenhancing lesions when compared to prior MRI performed October 03, 2017 Signed by: Dr. Joellen Siegel M.D. on 01/12/2019 12:19 PM
[2019-01-12 15:51] VITALS: BP 124/60
--- NOTE | 2019-01-12 15:56 | Diagnostic Imaging Report ---
History: Multiple sclerosis Comparison studies: MRI of cervical spine 10/04/2007 Technique:: Sagittal T1, T2 and inversion recovery, axial T1 and T2 Intravenous contrast: None. Findings: Spinal cord size: Normal in size and configuration. T2 lesion load: Few small T2 lesions are seen as described below. At C2 inferior endplate, right posterolateral cord, unchanged. At C3 inferior endplate, left lateral cord, unchanged. At C7 inferior endplate, left posterior cord, unchanged. Hypointense foci: None. Enhancing lesions: None Additional findings: Straightening of the cervical spine lordosis, no high-grade canal stenosis IMPRESSION: 1. Stable few T2 lesions of the cervical cord, could be seen in demyelination 2. No new lesions are seen Signed by: DR Nato Lloyd M.D. on 01/12/2019 3:52 PM
[2019-01-12] MEDS: DULOXETINE HCL 30 MG DELAYED RELEASE PO SCH (16:53)
[2019-01-12] MEDS: GABAPENTIN 300 MG CAP PO SCH (16:53)
[2019-01-12] MEDS: ENOXAPARIN SOD INJ 40 MG/0.4 ML SYR SC SCH (16:53)
--- NOTE | 2019-01-12 17:10 | NUR ---
[facility] to [facility] at [facility]. 0 s/s of acute distress noted at time of discharge. Report called to nurse Gibbons at [facility]. Pt left by brenda by ambulance.
--- NOTE | 2019-01-12 17:52 | Discharge Summary ---
ADMISSION DIAGNOSES: 1. Multiple sclerosis flare. 2. Weakness of the left leg. 3. Urinary tract infection, present on admission. 4. Hypertension. DISCHARGE DIAGNOSES: 1. Multiple sclerosis. 2. Hypertension. HISTORY: Hysterectomy and cholecystectomy. FAMILY HISTORY: Noncontributory. SOCIAL HISTORY: Noncontributory. HOSPITAL COURSE: A 68-year-old female with MS diagnosed in 1993, admitted with 48 hours of increased weakness and dysuria. On admission, EKG showed normal sinus rhythm. CT of the brain showed no acute abnormalities. Neurology was consulted, who ordered an MRI of the brain with MRI of the C, T, and L-spine, all of which were negative for acute abnormalities. Chest x-ray was negative. Blood culture was negative. Urine culture came back positive for E coli. The patient was started on cefepime and will get a total of 7 days. For the MS flare, Neurology was consulted, who gave the patient 1000 mg of Solu-Medrol IV. The patient is feeling better and ready to discharge to the snf facility. The patient understands discharge instructions and agrees to plan. Vital signs are stable. The patient is afebrile. Dictated by Kylah Philippe NP MD MATTHEW Singer/PAULO /[id number]
== END 2019-01-12 17:10 | DRG 59 ==
LOC: ER 08:48 → ERHOLD 10:50 → MED/SURG3 12:37
PROVIDERS: ADMIT Internal Medicine; ATTEND Internal Medicine
DX: G35 Multiple sclerosis (principal); N39.0 Urinary tract infection, site not specified; B96.20 Unspecified Escherichia coli [E. coli] as the cause of diseases classified elsewhere; I12.9 Hypertensive chronic kidney disease with stage 1 through stage 4 chronic kidney disease, or unspecified chronic kidney disease; N18.3 Chronic kidney disease, stage 3 (moderate); E03.9 Hypothyroidism, unspecified
CPT/HCPCS: 36415; 70450; 70551; 71045; 72141; 72146; 72148; 80048; 80053; 81001; 82550; 82553; 83690; 83735; 83880; 84100; 84443; 84484; 85025; 85610; 85651; 85730; 87040; 87086; 87186; 93005; 97139; 99284; J0692; J0696; J1650; J2930; J7030; J7050

== ENCOUNTER 2019-05-04 14:35 | Emergency (ER) | payer MEDICARE ==
[~2019-05-04] VITALS: Ht 165.1 cm; Wt 76.7 kg
[2019-05-04 15:38] LABS: BASOPHILS # (AUTO) 0.1 (0.0-0.1); BASOPHILS % 0.9 % (0.0-1.0); EOSINOPHILS # (AUTO) 0.2 (0.0-0.4); EOSINOPHILS % 3.2 % (0.0-6.0); LYMPHOCYTES # (AUTO) 1.9 (1.0-3.2); LYMPHOCYTES % 34.5 % (18.0-39.1); MEAN CORPUSCULAR HEMOGLOBIN 31.9 pg (28-32); MEAN CORPUSCULAR HGB CONC 33.3 g/dL (31-35); MEAN CORPUSCULAR VOLUME 95.6 fL (81-99); MONOCYTES # (AUTO) 0.4 (0.2-0.8); MONOCYTES % 7.9 % (4.4-11.3); NEUTROPHILS % 53.3 % (38.7-80.0); PLATELET COUNT 349 x10e3/uL (140-360); RED BLOOD COUNT 4.08 x10e6/uL (3.6-5.1); RED CELL DISTRIBUTION WIDTH 12.9 % (11.7-14.4)
[2019-05-04 15:50] LABS: INR 0.81; PROTHROMBIN TIME 11.7 seconds (11.9-14.5)
[2019-05-04 15:57] LABS: ALBUMIN 3.8 g/dL (3.5-5.0); ALBUMIN/GLOBULIN RATIO 1.1 (0.8-2.0); ANION GAP 12.2 mmol/L (8-16); CALCIUM 9.8 mg/dL (8.4-10.2); CREATININE, SERUM 0.99 mg/dL (0.57-1.11); POTASSIUM 3.2 mmol/L (3.5-5.1)
--- NOTE | 2019-05-04 16:00 | NUR ---
Venous doppler completed by ear mold laboratory technician.
[2019-05-04] MEDS ORDERED: POTASSIUM CHLORIDE 20 MEQ TAB CR PO STA (16:04)
[2019-05-04 16:18] LABS: CREATINE KINASE MB 1.6 ng/mL (0-5.0); THYROID STIMULATING HORMONE 4.832 uIU/mL (0.350-4.940)
--- NOTE | 2019-05-04 16:39 | Diagnostic Imaging Report ---
EXAMINATION: CHEST SINGLE (PORTABLE) INDICATION: ^[id number] ^[id number] ^LE EDEMA COMPARISON: None FINDINGS: AP view TUBES and LINES: None. LUNGS: Lungs are well inflated. There is right basilar opacity likely due to effusion and or atelectasis. PLEURA: No pleural effusion or pneumothorax. There is elevated right hemidiaphragm. HEART AND MEDIASTINUM: The cardiomediastinal silhouette is unremarkable. BONES AND SOFT TISSUES: No acute osseous lesion. Soft tissues are unremarkable. UPPER ABDOMEN: No free air under the diaphragm. IMPRESSION: Right basilar opacity likely due to effusion and or atelectasis. Signed by: Senthil Sims MD on 05/04/2019 4:36 PM
--- NOTE | 2019-05-04 16:51 | NUR ---
Patient given 40 meq of KCL po, preparing patient for transport to home for DC.
== END 2019-05-04 17:19 | disposition home or self-care (01) ==
LOC: ER 14:35
DX: I87.2 Venous insufficiency (chronic) (peripheral) (principal); R60.9 Edema, unspecified; G35 Multiple sclerosis; E03.9 Hypothyroidism, unspecified; F32.9 Major depressive disorder, single episode, unspecified; Z86.14 Personal history of Methicillin resistant Staphylococcus aureus infection
CPT/HCPCS: 36415; 71045; 80053; 82550; 82553; 83880; 84443; 84484; 85025; 85610; 85730; 93970; 99284

== ENCOUNTER 2020-05-16 14:48 | Inpatient (IN) | payer MEDICARE ==
[~2020-05-16] VITALS: Ht 165.1 cm; Wt 83.9 kg
[2020-05-16 17:19] LABS: BASOPHILS % 0.4 % (0.0-1.0); EOSINOPHILS # (AUTO) 0.1 (0.0-0.4); EOSINOPHILS % 1.1 % (0.0-6.0); HEMATOCRIT 38.9 % (34.2-44.1); HEMOGLOBIN 12.5 g/dL (12.0-16.0); LYMPHOCYTES # (AUTO) 1.2 (1.0-3.2); LYMPHOCYTES % 14.2 % (18.0-39.1); MEAN CORPUSCULAR HEMOGLOBIN 30.6 pg (28-32); MEAN CORPUSCULAR HGB CONC 32.1 g/dL (31-35); MEAN CORPUSCULAR VOLUME 95.3 fL (81-99); MONOCYTES # (AUTO) 0.6 (0.2-0.8); MONOCYTES % 7.5 % (4.4-11.3); NEUTROPHILS # (AUTO) 6.2 (2.1-6.9); NEUTROPHILS % 76.4 % (38.7-80.0); PLATELET COUNT 316 x10e3/uL (140-360); RED BLOOD COUNT 4.08 x10e6/uL (3.6-5.1); RED CELL DISTRIBUTION WIDTH 13.2 % (11.7-14.4)
[2020-05-16 17:30] LABS: INR 0.85; PARTIAL THROMBOPLASTIN TIME 24.6 seconds (23.8-35.5); PROTHROMBIN TIME 12.1 seconds (11.9-14.5)
[2020-05-16 17:40] LABS: ALBUMIN 3.4 g/dL (3.5-5.0); ALBUMIN/GLOBULIN RATIO 0.8 (0.8-2.0); ANION GAP 14.2 mmol/L (8-16); CALCIUM 9.2 mg/dL (8.4-10.2); CREATININE, SERUM 0.92 mg/dL (0.57-1.11); MAGNESIUM 2.3 MG/DL (1.3-2.1); POTASSIUM 4.2 mmol/L (3.5-5.1)
[2020-05-16] MEDS ORDERED: HYDROCODONE/APAP 5MG-325MG TAB PO ONE (17:45)
[2020-05-16 17:49] LABS: CREATINE KINASE MB 0.6 ng/mL (0-5.0)
[2020-05-16] MEDS ORDERED: KETOROLAC TROMETHAMINE 30 MG/ML VIAL IV STA (17:55)
[2020-05-16] MEDS ORDERED: KETOROLAC TROMETHAMINE 30 MG/ML VIAL IV PRN (18:00)
[2020-05-16] MEDS ORDERED: ONDANSETRON HCL INJ 2MG/ML 2ML 2 MG/ML VIAL IV PRN (18:00)
[2020-05-16] MEDS: SODIUM CHLORIDE 0.9% 1000ML 1,000 ML IV SCH (18:29)
[2020-05-16] MEDS: HYDROCODONE/APAP 5MG-325MG TAB PO PRN (21:58)
[2020-05-16] MEDS ORDERED: ULTRAM50 MG PO (22:16)
[2020-05-16] MEDS ORDERED: ZOCOR10 MG PO (22:16)
[2020-05-16] MEDS ORDERED: LEVOTHYROXINE50 MCG PO (22:16)
[2020-05-16 22:55] VITALS: BP 11/63
[2020-05-16 23:00] VITALS: BP 121/63
[2020-05-17] VITALS (7 sets, daily range): BP systolic 113–144; BP diastolic 51–57
[2020-05-17] MEDS: HYDROCODONE/APAP 5MG-325MG TAB PO PRN ×3 (02:10→13:13)
[2020-05-17] MEDS ORDERED: ACETAMINOPHEN 325 MG TAB PO PRN (04:15)
[2020-05-17] MEDS ORDERED: METOPROLOL TARTRATE INJ 1 MG/ML VIAL IV PRN (04:15)
[2020-05-17] MEDS ORDERED: HYDROCODONE/APAP 5MG-325MG TAB PO ONE ×2 (04:15)
[2020-05-17] MEDS ORDERED: POLYETHYLENE GLYCOL 3350 17 GM PACK PO PRN (04:15)
[2020-05-17 05:31] LABS: CLARITY,URINE SL CLOUDY (CLEAR); COLOR,URINE YELLOW (YELLOW)
[2020-05-17 05:32] LABS: KETONES,URINE NEGATIVE (NEGATIVE); LEUKOCYTE ESTERASE ,URINE NEGATIVE (NEGATIVE); NITRITE,URINE POSITIVE (NEGATIVE); PROTEIN,URINE DIPSTICK NEGATIVE (NEGATIVE); URINE UROBILINOGEN 0.2 mg/dL (0.2 - 1)
[2020-05-17 05:41] LABS: BASOPHILS % 0.6 % (0.0-1.0); EOSINOPHILS # (AUTO) 0.1 (0.0-0.4); EOSINOPHILS % 2.1 % (0.0-6.0); HEMATOCRIT 35.3 % (34.2-44.1); HEMOGLOBIN 11.4 g/dL (12.0-16.0); LYMPHOCYTES # (AUTO) 1.6 (1.0-3.2); LYMPHOCYTES % 23.7 % (18.0-39.1); MEAN CORPUSCULAR HEMOGLOBIN 30.6 pg (28-32); MEAN CORPUSCULAR HGB CONC 32.3 g/dL (31-35); MEAN CORPUSCULAR VOLUME 94.9 fL (81-99); MONOCYTES # (AUTO) 0.6 (0.2-0.8); MONOCYTES % 9.6 % (4.4-11.3); NEUTROPHILS # (AUTO) 4.3 (2.1-6.9); NEUTROPHILS % 63.6 % (38.7-80.0); PLATELET COUNT 267 x10e3/uL (140-360); RED BLOOD COUNT 3.72 x10e6/uL (3.6-5.1); RED CELL DISTRIBUTION WIDTH 13.2 % (11.7-14.4)
[2020-05-17 06:06] LABS: ALANINE AMINOTRANSFERASE 8 IU/L (0-55); ALBUMIN 2.9 g/dL (3.5-5.0); ALBUMIN/GLOBULIN RATIO 0.9 (0.8-2.0); ALKALINE PHOSPHATASE 56 IU/L (40-150); ANION GAP 14.5 mmol/L (8-16); BLOOD UREA NITROGEN 20 mg/dL (7-26); BUN/CREATININE RATIO 26 (6-25); CALCIUM 8.8 mg/dL (8.4-10.2); CARBON DIOXIDE 27 mmol/L (22-29); CHLORIDE 106 mmol/L (98-107); CREATININE, SERUM 0.77 mg/dL (0.57-1.11); EST GLOMERULAR FILTRATION RATE > 60 ML/MIN (60-); GLUCOSE 96 mg/dL (74-118); POTASSIUM 3.5 mmol/L (3.5-5.1); SODIUM 144 mmol/L (136-145)
[2020-05-17 06:06] LABS: RBC,URINE 0-5 /HPF (0-5); WBC,URINE (MAN) 0-5 /HPF (0-5)
[2020-05-17 06:07] LABS: BACTERIA,URINE MANY /HPF; EPITHELIAL CELLS,URINE FEW /LPF
[2020-05-17 07:38] LABS: CREATINE KINASE MB 0.9 ng/mL (0-5.0)
[2020-05-17 07:45] LABS: CHOL/HDL RATIO 3.3 (3.0-3.6); MAGNESIUM 2.1 MG/DL (1.3-2.1); PHOSPHORUS 3.6 MG/DL (2.3-4.7)
[2020-05-17] MEDS: LEVOTHYROXINE SODIUM 25 MCG TABLET PO SCH (07:45)
[2020-05-17 08:06] LABS: THYROID STIMULATING HORMONE 3.788 uIU/mL (0.350-4.940)
[2020-05-17] MEDS: BACLOFEN 10 MG TAB PO SCH ×4 (08:30→20:24)
[2020-05-17] MEDS: SODIUM CHLORIDE 0.9% 1000ML 1,000 ML IV SCH ×2 (08:35→22:00)
[2020-05-17] MEDS: TECFIDERA 240 MG PO SCH ×2 (09:00→20:24)
[2020-05-17] MEDS: TROSPIUM CHLORIDE 20 MG PO SCH ×2 (09:00→16:30)
[2020-05-17] MEDS: TRIAMTERENE/HCTZ 37.5-25 MG TAB PO SCH (09:00)
[2020-05-17] MEDS: DOCUSATE SODIUM 100 MG CAP PO SCH ×2 (11:00→18:34)
[2020-05-17] MEDS: FAMOTIDINE 20 MG TAB PO SCH ×2 (11:00→18:34)
[2020-05-17 14:33] LABS: CREATINE KINASE MB 0.9 ng/mL (0-5.0)
[2020-05-17] MEDS: TRAMADOL HCL 50 MG TAB PO SCH (18:34)
[2020-05-17] MEDS: DULOXETINE HCL 30 MG DELAYED RELEASE PO SCH (18:34)
[2020-05-17] MEDS: GABAPENTIN 300 MG CAP PO SCH (18:34)
[2020-05-17] MEDS ORDERED: MELATONIN 5 MG TABLET PO PRN (19:45)
[2020-05-17] MEDS: SIMVASTATIN 20 MG TAB PO SCH (20:24)
[2020-05-17] MEDS: HYDROCODONE/APAP 10MG-325MG TAB PO PRN (20:25)
[2020-05-17] MEDS ORDERED: TEMAZEPAM 15 MG CAP PO PRN (21:00)
[2020-05-18] VITALS (7 sets, daily range): BP systolic 104–129; BP diastolic 51–65
[2020-05-18 05:46] LABS: BASOPHILS # (AUTO) 0.1 (0.0-0.1); BASOPHILS % 0.9 % (0.0-1.0); EOSINOPHILS # (AUTO) 0.2 (0.0-0.4); EOSINOPHILS % 2.8 % (0.0-6.0); HEMATOCRIT 32.4 % (34.2-44.1); HEMOGLOBIN 10.4 g/dL (12.0-16.0); LYMPHOCYTES # (AUTO) 1.4 (1.0-3.2); MEAN CORPUSCULAR HEMOGLOBIN 30.4 pg (28-32); MEAN CORPUSCULAR HGB CONC 32.1 g/dL (31-35); MEAN CORPUSCULAR VOLUME 94.7 fL (81-99); MONOCYTES # (AUTO) 0.5 (0.2-0.8); MONOCYTES % 8.7 % (4.4-11.3); NEUTROPHILS # (AUTO) 3.6 (2.1-6.9); NEUTROPHILS % 63.2 % (38.7-80.0); PLATELET COUNT 264 x10e3/uL (140-360); RED BLOOD COUNT 3.42 x10e6/uL (3.6-5.1); RED CELL DISTRIBUTION WIDTH 13.4 % (11.7-14.4)
[2020-05-18 06:05] LABS: INR 0.89; PROTHROMBIN TIME 12.6 seconds (11.9-14.5)
[2020-05-18 06:06] LABS: PARTIAL THROMBOPLASTIN TIME 29.5 seconds (23.8-35.5)
[2020-05-18 06:25] LABS: BLOOD UREA NITROGEN 16 mg/dL (7-26); BUN/CREATININE RATIO 21 (6-25); CALCIUM 8.2 mg/dL (8.4-10.2); CARBON DIOXIDE 25 mmol/L (22-29); CHLORIDE 108 mmol/L (98-107); CREATININE, SERUM 0.76 mg/dL (0.57-1.11); EST GLOMERULAR FILTRATION RATE > 60 ML/MIN (60-); GLUCOSE 84 mg/dL (74-118); SODIUM 142 mmol/L (136-145)
[2020-05-18] MEDS: TROSPIUM CHLORIDE 20 MG PO SCH ×2 (07:30→16:30)
[2020-05-18] MEDS: FAMOTIDINE 20 MG TAB PO SCH ×2 (07:30→16:30)
[2020-05-18] MEDS: BACLOFEN 10 MG TAB PO SCH ×4 (08:59→20:38)
[2020-05-18] MEDS: LEVOTHYROXINE SODIUM 25 MCG TABLET PO SCH (08:59)
[2020-05-18] MEDS: DOCUSATE SODIUM 100 MG CAP PO SCH ×2 (08:59→17:00)
[2020-05-18] MEDS: TECFIDERA 240 MG PO SCH ×2 (08:59→20:38)
[2020-05-18] MEDS: TRIAMTERENE/HCTZ 37.5-25 MG TAB PO SCH (08:59)
[2020-05-18] MEDS: SODIUM CHLORIDE 0.9% 1000ML 1,000 ML IV SCH (10:07)
[2020-05-18] MEDS ORDERED: ONDANSETRON HCL INJ 2MG/ML 2ML 2 MG/ML VIAL ONE (12:22)
[2020-05-18] MEDS ORDERED: PROPOFOL IV EMULSION 10 MG/ML 20 ML VIAL ONE (12:22)
[2020-05-18] MEDS ORDERED: SEVOFLURANE INHAL SOLN 250 ML PEN BTL ONE (12:22)
[2020-05-18] MEDS ORDERED: LIDOCAINE HCL 2% LOCAL INJ 5 ML SDV VIAL INJ ONE (12:22)
[2020-05-18] MEDS ORDERED: KETOROLAC TROMETHAMINE 30 MG/ML VIAL ONE (12:22)
[2020-05-18] MEDS ORDERED: CEFAZOLIN SOD 1 GM VIAL ONE (12:22)
[2020-05-18] MEDS ORDERED: DEXAMETHASONE SOD PHOS INJ 4 MG/ML VIAL ONE (12:22)
[2020-05-18] MEDS ORDERED: FENTANYL CITRATE/PF 100MCG/2 ML INJ ONE (12:58)
[2020-05-18] MEDS: DULOXETINE HCL 30 MG DELAYED RELEASE PO SCH (17:00)
[2020-05-18] MEDS: GABAPENTIN 300 MG CAP PO SCH (17:00)
[2020-05-18] MEDS: TRAMADOL HCL 50 MG TAB PO SCH (17:00)
[2020-05-18 19:29] LABS: BASOPHILS % 0.3 % (0.0-1.0); EOSINOPHILS % 0.2 % (0.0-6.0); HEMATOCRIT 39.9 % (34.2-44.1); HEMOGLOBIN 12.4 g/dL (12.0-16.0); LYMPHOCYTES # (AUTO) 0.7 (1.0-3.2); LYMPHOCYTES % 7.3 % (18.0-39.1); MEAN CORPUSCULAR HEMOGLOBIN 30.5 pg (28-32); MEAN CORPUSCULAR HGB CONC 31.1 g/dL (31-35); MONOCYTES # (AUTO) 0.3 (0.2-0.8); MONOCYTES % 3.3 % (4.4-11.3); NEUTROPHILS # (AUTO) 8.6 (2.1-6.9); NEUTROPHILS % 88.2 % (38.7-80.0); PLATELET COUNT 303 x10e3/uL (140-360); RED BLOOD COUNT 4.07 x10e6/uL (3.6-5.1); RED CELL DISTRIBUTION WIDTH 13.2 % (11.7-14.4)
[2020-05-18 19:46] LABS: ANION GAP 21.8 mmol/L (8-16); BLOOD UREA NITROGEN 21 mg/dL (7-26); BUN/CREATININE RATIO 27 (6-25); CALCIUM 8.9 mg/dL (8.4-10.2); CARBON DIOXIDE 22 mmol/L (22-29); CHLORIDE 105 mmol/L (98-107); CREATININE, SERUM 0.77 mg/dL (0.57-1.11); EST GLOMERULAR FILTRATION RATE > 60 ML/MIN (60-); GLUCOSE 79 mg/dL (74-118); POTASSIUM 3.8 mmol/L (3.5-5.1); SODIUM 145 mmol/L (136-145)
[2020-05-18] MEDS: SIMVASTATIN 20 MG TAB PO SCH (20:38)
[2020-05-18] MEDS: HYDROCODONE/APAP 5MG-325MG TAB PO PRN (20:39)
[2020-05-18] MEDS: CEFAZOLIN SOD 2 GM/D5W 50ML 50 ML IV SCH (21:44)
[2020-05-18] MEDS ORDERED: CEFAZOLIN SOD 1 GM VIAL IV SCH (22:00)
[2020-05-19] VITALS (9 sets, daily range): BP systolic 97–113; BP diastolic 54–66
[2020-05-19] MEDS: ENOXAPARIN 30 MG/0.3 ML SYR SC SCH ×3 (00:50→21:30)
[2020-05-19] MEDS: HYDROCODONE/APAP 5MG-325MG TAB PO PRN (02:02)
[2020-05-19 05:36] LABS: BASOPHILS % 0.3 % (0.0-1.0); EOSINOPHILS % 0.1 % (0.0-6.0); HEMATOCRIT 29.5 % (34.2-44.1); HEMOGLOBIN 9.5 g/dL (12.0-16.0); LYMPHOCYTES # (AUTO) 1.5 (1.0-3.2); LYMPHOCYTES % 18.7 % (18.0-39.1); MEAN CORPUSCULAR HEMOGLOBIN 30.7 pg (28-32); MEAN CORPUSCULAR HGB CONC 32.2 g/dL (31-35); MEAN CORPUSCULAR VOLUME 95.5 fL (81-99); MONOCYTES # (AUTO) 0.8 (0.2-0.8); MONOCYTES % 10.2 % (4.4-11.3); NEUTROPHILS # (AUTO) 5.5 (2.1-6.9); NEUTROPHILS % 70.2 % (38.7-80.0); PLATELET COUNT 281 x10e3/uL (140-360); RED BLOOD COUNT 3.09 x10e6/uL (3.6-5.1); RED CELL DISTRIBUTION WIDTH 13.2 % (11.7-14.4)
[2020-05-19] MEDS: CEFAZOLIN SOD 2 GM/D5W 50ML 50 ML IV SCH ×3 (05:40→22:27)
[2020-05-19 05:56] LABS: ANION GAP 12.8 mmol/L (8-16); BLOOD UREA NITROGEN 21 mg/dL (7-26); BUN/CREATININE RATIO 28 (6-25); CALCIUM 8.2 mg/dL (8.4-10.2); CARBON DIOXIDE 23 mmol/L (22-29); CHLORIDE 106 mmol/L (98-107); CREATININE, SERUM 0.74 mg/dL (0.57-1.11); EST GLOMERULAR FILTRATION RATE > 60 ML/MIN (60-); GLUCOSE 72 mg/dL (74-118); POTASSIUM 3.8 mmol/L (3.5-5.1); SODIUM 138 mmol/L (136-145)
[2020-05-19] MEDS: SODIUM CHLORIDE 0.9% 1000ML 1,000 ML IV SCH ×2 (07:52→12:41)
[2020-05-19] MEDS: TROSPIUM CHLORIDE 20 MG PO SCH ×2 (07:54→16:30)
[2020-05-19] MEDS: FAMOTIDINE 20 MG TAB PO SCH ×2 (07:54→18:04)
[2020-05-19] MEDS: DOCUSATE SODIUM 100 MG CAP PO SCH ×2 (07:54→18:04)
[2020-05-19] MEDS: LEVOTHYROXINE SODIUM 25 MCG TABLET PO SCH (07:55)
[2020-05-19] MEDS: TECFIDERA 240 MG PO SCH ×2 (07:55→21:18)
[2020-05-19] MEDS: BACLOFEN 10 MG TAB PO SCH ×4 (07:56→21:09)
[2020-05-19] MEDS: TRIAMTERENE/HCTZ 37.5-25 MG TAB PO SCH (07:56)
[2020-05-19] MEDS: HYDROCODONE/APAP 10MG-325MG TAB PO PRN ×4 (08:00→21:22)
[2020-05-19] MEDS: DULOXETINE HCL 30 MG DELAYED RELEASE PO SCH (18:04)
[2020-05-19] MEDS: TRAMADOL HCL 50 MG TAB PO SCH (18:04)
[2020-05-19] MEDS: GABAPENTIN 300 MG CAP PO SCH (18:04)
[2020-05-19] MEDS: SIMVASTATIN 20 MG TAB PO SCH (21:09)
[2020-05-20] VITALS (7 sets, daily range): BP systolic 93–145; BP diastolic 45–94
[2020-05-20] MEDS: SODIUM CHLORIDE 0.9% 1000ML 1,000 ML IV SCH ×2 (00:35→13:32)
[2020-05-20] MEDS: CEFAZOLIN SOD 2 GM/D5W 50ML 50 ML IV SCH ×3 (05:32→22:00)
[2020-05-20] MEDS: HYDROCODONE/APAP 5MG-325MG TAB PO PRN ×4 (05:47→21:43)
[2020-05-20 06:40] LABS: HEMATOCRIT 31.5 % (34.2-44.1); HEMOGLOBIN 9.9 g/dL (12.0-16.0)
[2020-05-20] MEDS: TROSPIUM CHLORIDE 20 MG PO SCH ×3 (07:30→09:29)
[2020-05-20] MEDS: TECFIDERA 240 MG PO SCH ×2 (08:21→20:50)
[2020-05-20] MEDS: DOCUSATE SODIUM 100 MG CAP PO SCH ×2 (09:00→17:15)
[2020-05-20] MEDS: BACLOFEN 10 MG TAB PO SCH ×4 (09:00→21:43)
[2020-05-20] MEDS: LEVOTHYROXINE SODIUM 25 MCG TABLET PO SCH (09:00)
[2020-05-20] MEDS: FAMOTIDINE 20 MG TAB PO SCH ×2 (09:00→17:15)
[2020-05-20] MEDS: TRIAMTERENE/HCTZ 37.5-25 MG TAB PO SCH (09:01)
[2020-05-20] MEDS: ENOXAPARIN 30 MG/0.3 ML SYR SC SCH ×2 (09:02→21:43)
[2020-05-20] MEDS: GABAPENTIN 300 MG CAP PO SCH (17:15)
[2020-05-20] MEDS: TRAMADOL HCL 50 MG TAB PO SCH (17:15)
[2020-05-20] MEDS: DULOXETINE HCL 30 MG DELAYED RELEASE PO SCH (17:15)
[2020-05-20] MEDS: SIMVASTATIN 20 MG TAB PO SCH (21:43)
[2020-05-21] VITALS (8 sets, daily range): BP systolic 95–129; BP diastolic 57–71
[2020-05-21] MEDS: SODIUM CHLORIDE 0.9% 1000ML 1,000 ML IV SCH ×3 (04:40→20:27)
[2020-05-21] MEDS: CEFAZOLIN SOD 2 GM/D5W 50ML 50 ML IV SCH ×3 (05:23→22:43)
[2020-05-21 08:07] LABS: HEMATOCRIT 28.6 % (34.2-44.1); HEMOGLOBIN 9.3 g/dL (12.0-16.0)
[2020-05-21] MEDS: LEVOTHYROXINE SODIUM 25 MCG TABLET PO SCH (09:00)
[2020-05-21] MEDS: TECFIDERA 240 MG PO SCH ×2 (09:05→21:00)
[2020-05-21] MEDS: FAMOTIDINE 20 MG TAB PO SCH ×2 (10:16→16:11)
[2020-05-21] MEDS: ENOXAPARIN 30 MG/0.3 ML SYR SC SCH ×2 (10:16→20:27)
[2020-05-21] MEDS: DOCUSATE SODIUM 100 MG CAP PO SCH ×2 (10:16→16:11)
[2020-05-21] MEDS: TRIAMTERENE/HCTZ 37.5-25 MG TAB PO SCH (10:16)
[2020-05-21] MEDS: BACLOFEN 10 MG TAB PO SCH ×4 (10:16→20:27)
[2020-05-21] MEDS: HYDROCODONE/APAP 5MG-325MG TAB PO PRN ×2 (10:18→16:11)
[2020-05-21] MEDS: DULOXETINE HCL 30 MG DELAYED RELEASE PO SCH (16:11)
[2020-05-21] MEDS: TRAMADOL HCL 50 MG TAB PO SCH (16:12)
[2020-05-21] MEDS: GABAPENTIN 300 MG CAP PO SCH (16:12)
[2020-05-21] MEDS: TROSPIUM CHLORIDE 20 MG PO SCH (16:13)
[2020-05-21] MEDS: SIMVASTATIN 20 MG TAB PO SCH (20:27)
[2020-05-21] MEDS: HYDROCODONE/APAP 10MG-325MG TAB PO PRN (20:28)
[2020-05-22] VITALS (7 sets, daily range): BP systolic 99–135; BP diastolic 65–77
[2020-05-22] MEDS ORDERED: LEVOTHYROXINE SODIUM 25 MCG TABLET PO SCH (06:00)
[2020-05-22] MEDS: CEFAZOLIN SOD 2 GM/D5W 50ML 50 ML IV SCH ×2 (06:22→14:51)
[2020-05-22 07:05] LABS: ANION GAP 12.5 mmol/L (8-16); BLOOD UREA NITROGEN 16 mg/dL (7-26); BUN/CREATININE RATIO 20 (6-25); CALCIUM 8.3 mg/dL (8.4-10.2); CARBON DIOXIDE 26 mmol/L (22-29); CHLORIDE 110 mmol/L (98-107); CREATININE, SERUM 0.79 mg/dL (0.57-1.11); EST GLOMERULAR FILTRATION RATE > 60 ML/MIN (60-); GLUCOSE 101 mg/dL (74-118); POTASSIUM 3.5 mmol/L (3.5-5.1); SODIUM 145 mmol/L (136-145)
[2020-05-22] MEDS: SODIUM CHLORIDE 0.9% 1000ML 1,000 ML IV SCH ×2 (07:20→11:04)
[2020-05-22 08:26] LABS: HEMATOCRIT 28.4 % (34.2-44.1); HEMOGLOBIN 9.3 g/dL (12.0-16.0)
[2020-05-22] MEDS: FAMOTIDINE 20 MG TAB PO SCH ×2 (09:41→16:37)
[2020-05-22] MEDS: BACLOFEN 10 MG TAB PO SCH ×3 (09:41→16:53)
[2020-05-22] MEDS: TRIAMTERENE/HCTZ 37.5-25 MG TAB PO SCH (09:41)
[2020-05-22] MEDS: DOCUSATE SODIUM 100 MG CAP PO SCH ×2 (09:41→16:37)
[2020-05-22] MEDS: HYDROCODONE/APAP 10MG-325MG TAB PO PRN ×3 (09:42→19:07)
[2020-05-22] MEDS: TECFIDERA 240 MG PO SCH (09:43)
[2020-05-22] MEDS: TROSPIUM CHLORIDE 20 MG PO SCH ×2 (09:43→16:37)
[2020-05-22] MEDS: ENOXAPARIN 30 MG/0.3 ML SYR SC SCH (09:43)
[2020-05-22] MEDS: TRAMADOL HCL 50 MG TAB PO SCH (16:37)
[2020-05-22] MEDS: GABAPENTIN 300 MG CAP PO SCH (16:37)
[2020-05-22] MEDS: DULOXETINE HCL 30 MG DELAYED RELEASE PO SCH (16:37)
[2020-05-22] MEDS ORDERED: HYDROCODON-ACE1 EA11 PO (16:57)
[2020-05-22] MEDS ORDERED: MIRALAX17 GM PO (16:57)
[2020-05-22] MEDS ORDERED: ACETAMINOPHEN325 M1 PO (16:57)
[2020-05-22] MEDS ORDERED: FAMOTIDINE20 MG PO (16:57)
[2020-05-22] MEDS ORDERED: COLACE100 MG PO (16:57)
[2020-05-22] MEDS ORDERED: LOVENOX30 MG/0.3 SC (16:57)
[2020-05-22] MEDS ORDERED: MELATONIN5 M2 PO (16:57)
[2020-05-22] MEDS ORDERED: CEFAZOLIN2 GM/100 M IV (16:57)
[2020-05-22] MEDS ORDERED: HYDROCODON-ACE1 EAC9 PO (16:57)
[2020-05-22] MEDS ORDERED: ULTRAM 50MG50 MG PO (17:00)
== END 2020-05-22 20:03 | DRG 493 ==
LOC: ER 15:10 → ERHOLD 17:56 → MED/SURG 22:19
PROVIDERS: ADMIT Internal Medicine; ATTEND Internal Medicine
PROC: 0QHH06Z Insertion of Intramedullary Internal Fixation Device into Left Tibia, Open Approach (ICD-10-PCS; principal; 2020-05-18 15:00)
DX: S82.192A Other fracture of upper end of left tibia, initial encounter for closed fracture (principal); N39.0 Urinary tract infection, site not specified; S82.432A Displaced oblique fracture of shaft of left fibula, initial encounter for closed fracture; E03.9 Hypothyroidism, unspecified; G35 Multiple sclerosis; W18.39XA Other fall on same level, initial encounter; I12.9 Hypertensive chronic kidney disease with stage 1 through stage 4 chronic kidney disease, or unspecified chronic kidney disease; G62.9 Polyneuropathy, unspecified; N32.81 Overactive bladder; Z87.440 Personal history of urinary (tract) infections; Z88.5 Allergy status to narcotic agent; Z90.49 Acquired absence of other specified parts of digestive tract; B96.20 Unspecified Escherichia coli [E. coli] as the cause of diseases classified elsewhere; E87.6 Hypokalemia; D64.9 Anemia, unspecified; N18.30 Chronic kidney disease, stage 3 unspecified; Z20.822 Contact with and (suspected) exposure to COVID-19
CPT/HCPCS: 36415; 70450; 71045; 76000; 80048; 80053; 80061; 81001; 82550; 82553; 83036; 83735; 84100; 84443; 84484; 85014; 85018; 85025; 85610; 85730; 86850; 86900; 87086; 87186; 93005; 96361; 97139; 99284; C1713; J0690; J1100; J1650; J1885; J2001; J2405; J3010; J7030; U0002

== ENCOUNTER 2021-02-04 13:43 | Inpatient (IN) | payer MEDICARE ==
[~2021-02-04] VITALS: Ht 165.1 cm; Wt 78.9 kg
[~2021-02-04 13:43] MED LIST changes: +ACETAMINOPHEN325 M1 PO; +CEFAZOLIN2 GM/100 M IV; +COLACE100 MG PO; +DEPAKOTE ER500 MG PO; +FAMOTIDINE20 MG PO; +HYDROCODON-ACE1 EA11 PO; +HYDROCODON-ACE1 EAC9 PO; +LOVENOX30 MG/0.3 SC; +MELATONIN5 M2 PO; +METOPROLOL TART50 MG PO; +MIRALAX17 GM PO; +SYNTHROID50 MCG PO; +ULTRAM 50MG50 MG PO; +ULTRAM50 MG PO; +ZOCOR10 MG PO
[2021-02-04] MEDS ORDERED: ONDANSETRON HCL INJ 2MG/ML 2ML 2 MG/ML VIAL IV STA (14:31)
[2021-02-04 14:48] LABS: BASOPHILS # (AUTO) 0.1 (0.0-0.1); BASOPHILS % 0.6 % (0.0-1.0); EOSINOPHILS # (AUTO) 0.1 (0.0-0.4); EOSINOPHILS % 1.3 % (0.0-6.0); HEMATOCRIT 37.7 % (34.2-44.1); HEMOGLOBIN 12.6 g/dL (12.0-16.0); LYMPHOCYTES # (AUTO) 2.1 (1.0-3.2); LYMPHOCYTES % 24.5 % (18.0-39.1); MEAN CORPUSCULAR HEMOGLOBIN 32.6 pg (28-32); MEAN CORPUSCULAR HGB CONC 33.4 g/dL (31-35); MEAN CORPUSCULAR VOLUME 97.7 fL (81-99); MONOCYTES # (AUTO) 0.7 (0.2-0.8); MONOCYTES % 8.3 % (4.4-11.3); NEUTROPHILS # (AUTO) 5.6 (2.1-6.9); NEUTROPHILS % 64.7 % (38.7-80.0); PLATELET COUNT 452 x10e3/uL (140-360); RED BLOOD COUNT 3.86 x10e6/uL (3.6-5.1); RED CELL DISTRIBUTION WIDTH 16.7 % (11.7-14.4)
[2021-02-04 14:55] LABS: INR 0.85; PROTHROMBIN TIME 12.3 seconds (11.9-14.5)
[2021-02-04 14:56] LABS: CLARITY,URINE TURBID (CLEAR); COLOR,URINE YELLOW (YELLOW); KETONES,URINE 1+ (NEGATIVE); LEUKOCYTE ESTERASE ,URINE MODERATE (NEGATIVE); NITRITE,URINE POSITIVE (NEGATIVE); PARTIAL THROMBOPLASTIN TIME 29.2 seconds (23.8-35.5); PROTEIN,URINE DIPSTICK 1+ (NEGATIVE); URINE UROBILINOGEN 0.2 mg/dL (0.2 - 1)
[2021-02-04 14:59] LABS: BACTERIA,URINE MANY /HPF; EPITHELIAL CELLS,URINE RARE /LPF; RBC,URINE 0-5 /HPF (0-5)
[2021-02-04 15:06] LABS: ALBUMIN 2.8 g/dL (3.5-5.0); ALBUMIN/GLOBULIN RATIO 0.7 (0.8-2.0); ANION GAP 18.7 mmol/L (8-16); CALCIUM 9.5 mg/dL (8.4-10.2); CREATININE, SERUM 0.81 mg/dL (0.57-1.11); MAGNESIUM 1.9 MG/DL (1.3-2.1)
[2021-02-04 15:08] LABS: POTASSIUM 2.7 mmol/L (3.5-5.1)
[2021-02-04 15:13] LABS: CREATINE KINASE MB 2.9 ng/mL (0-5.0)
[2021-02-04] MEDS ORDERED: POTASSIUM CHLORIDE 20 MEQ TAB CR PO STA (15:31)
[2021-02-04] MEDS ORDERED: KCL 20MEQ/.9 SOD CHL 1,000 ML IV ONE (16:00)
[2021-02-04] MEDS ORDERED: Vancomycin IV 1 GM in SODIUM CHLORIDE 0.9% 250ML 250 ML IV ONE (16:15)
[2021-02-04] MEDS: CEFTRIAXONE 1 GM in SODIUM CHLORIDE 0.9% 50ML 50 ML IV SCH (16:16)
[2021-02-04] MEDS: TRAMADOL HCL 50 MG TAB PO PRN ×2 (16:40→22:37)
[2021-02-04 18:35] VITALS: BP 117/60
[2021-02-04 20:00] VITALS: BP 118/59
[2021-02-04 21:00] VITALS: BP 118/59
[2021-02-04 22:00] VITALS: BP 118/59
[2021-02-04] MEDS ORDERED: POTASSIUM CHLORIDE 20 MEQ TAB CR PO ONE (22:00)
[2021-02-05] VITALS: BP 127/61
[2021-02-05] MEDS ORDERED: HYDRALAZINE HCL 20 MG/ML VIAL IV PRN (00:30)
[2021-02-05 04:00] VITALS: BP 107/55
[2021-02-05] MEDS ORDERED: SODIUM CHLORIDE 0.9% 250ML 250 ML ONE (04:27)
[2021-02-05] MEDS: CEFTRIAXONE 1 GM in SODIUM CHLORIDE 0.9% 50ML 50 ML IV SCH ×2 (04:30→16:50)
[2021-02-05 06:07] LABS: BASOPHILS % 0.5 % (0.0-1.0); EOSINOPHILS # (AUTO) 0.2 (0.0-0.4); EOSINOPHILS % 2.1 % (0.0-6.0); HEMATOCRIT 36.7 % (34.2-44.1); HEMOGLOBIN 12.5 g/dL (12.0-16.0); LYMPHOCYTES # (AUTO) 2.5 (1.0-3.2); LYMPHOCYTES % 29.7 % (18.0-39.1); MEAN CORPUSCULAR HEMOGLOBIN 33.2 pg (28-32); MEAN CORPUSCULAR HGB CONC 34.1 g/dL (31-35); MEAN CORPUSCULAR VOLUME 97.3 fL (81-99); MONOCYTES # (AUTO) 0.8 (0.2-0.8); MONOCYTES % 9.6 % (4.4-11.3); NEUTROPHILS # (AUTO) 4.9 (2.1-6.9); NEUTROPHILS % 57.4 % (38.7-80.0); PLATELET COUNT 424 x10e3/uL (140-360); RED BLOOD COUNT 3.77 x10e6/uL (3.6-5.1); RED CELL DISTRIBUTION WIDTH 16.4 % (11.7-14.4)
[2021-02-05 06:37] LABS: ALBUMIN 2.5 g/dL (3.5-5.0); ALBUMIN/GLOBULIN RATIO 0.7 (0.8-2.0); ANION GAP 13.9 mmol/L (8-16); CALCIUM 10.1 mg/dL (8.4-10.2); CREATININE, SERUM 0.73 mg/dL (0.57-1.11)
[2021-02-05 06:38] LABS: POTASSIUM 2.9 mmol/L (3.5-5.1)
[2021-02-05] MEDS ORDERED: KCL 20 MEQ PACKET/ ORAL SOLN PO NR (07:00)
[2021-02-05 08:09] VITALS: BP 139/64
[2021-02-05] MEDS: FAMOTIDINE 20 MG TAB PO SCH ×2 (08:29→16:50)
[2021-02-05 11:47] VITALS: BP 124/95
[2021-02-05] MEDS ORDERED: DOCUSATE SODIUM 100 MG CAP PO PRN (16:30)
[2021-02-05] MEDS ORDERED: POLYETHYLENE GLYCOL 3350 17 GM PACK PO PRN (16:30)
[2021-02-05] MEDS: GABAPENTIN 300 MG CAP PO SCH (16:51)
[2021-02-05] MEDS: TROSPIUM CHLORIDE 20 MG PO SCH (16:51)
[2021-02-05] MEDS: DULOXETINE HCL 30 MG DELAYED RELEASE PO SCH (16:51)
[2021-02-05] MEDS ORDERED: TRAMADOL HCL 50 MG TAB PO SCH (18:00)
[2021-02-05 20:00] VITALS: BP 134/70
[2021-02-05] MEDS: BACLOFEN 10 MG TAB PO SCH (20:50)
[2021-02-05] MEDS: SIMVASTATIN 20 MG TAB PO SCH (20:50)
[2021-02-05 21:00] VITALS: BP 134/70
[2021-02-05] MEDS ORDERED: BACLOFEN 20 MG PO SCH (21:00)
[2021-02-05] MEDS: TRAMADOL HCL 50 MG TAB PO PRN (21:58)
[2021-02-06] VITALS (8 sets, daily range): BP systolic 103–137; BP diastolic 48–72
[2021-02-06] MEDS: CEFTRIAXONE 1 GM in SODIUM CHLORIDE 0.9% 50ML 50 ML IV SCH (04:28)
[2021-02-06] MEDS: LEVOTHYROXINE SODIUM 50 MCG TAB PO SCH (05:45)
[2021-02-06] MEDS: TRAMADOL HCL 50 MG TAB PO PRN (05:45)
[2021-02-06 06:09] LABS: BASOPHILS % 0.4 % (0.0-1.0); EOSINOPHILS % 0.4 % (0.0-6.0); HEMATOCRIT 39.1 % (34.2-44.1); HEMOGLOBIN 13.1 g/dL (12.0-16.0); LYMPHOCYTES # (AUTO) 1.4 (1.0-3.2); LYMPHOCYTES % 17.3 % (18.0-39.1); MEAN CORPUSCULAR HEMOGLOBIN 32.7 pg (28-32); MEAN CORPUSCULAR HGB CONC 33.5 g/dL (31-35); MEAN CORPUSCULAR VOLUME 97.5 fL (81-99); MONOCYTES # (AUTO) 0.6 (0.2-0.8); NEUTROPHILS # (AUTO) 5.7 (2.1-6.9); NEUTROPHILS % 72.5 % (38.7-80.0); PLATELET COUNT 486 x10e3/uL (140-360); RED BLOOD COUNT 4.01 x10e6/uL (3.6-5.1); RED CELL DISTRIBUTION WIDTH 16.8 % (11.7-14.4)
[2021-02-06 06:49] LABS: ANION GAP 21.6 mmol/L (8-16); CALCIUM 9.2 mg/dL (8.4-10.2); CREATININE, SERUM 0.64 mg/dL (0.57-1.11)
[2021-02-06 07:12] LABS: POTASSIUM 2.6 mmol/L (3.5-5.1)
[2021-02-06] MEDS: FAMOTIDINE 20 MG TAB PO SCH ×2 (07:52→16:43)
[2021-02-06] MEDS ORDERED: POTASSIUM CHLORIDE 20MEQ/100ML 100 ML IV ONE (09:00)
[2021-02-06] MEDS ORDERED: POTASSIUM CHLORIDE 20 MEQ TAB CR PO ONE (09:00)
[2021-02-06] MEDS: TROSPIUM CHLORIDE 20 MG PO SCH ×2 (09:11→16:43)
[2021-02-06] MEDS: BACLOFEN 10 MG TAB PO SCH ×3 (09:11→21:38)
[2021-02-06] MEDS: ONDANSETRON HCL INJ 2MG/ML 2ML 2 MG/ML VIAL IV PRN (15:47)
[2021-02-06] MEDS: GABAPENTIN 300 MG CAP PO SCH (16:43)
[2021-02-06] MEDS: DULOXETINE HCL 30 MG DELAYED RELEASE PO SCH (16:43)
[2021-02-06] MEDS: ERTAPENEM 1 GM in SODIUM CHLORIDE 0.9% 50ML 50 ML IV SCH (18:31)
[2021-02-06] MEDS ORDERED: DEXTROSE 5%/0.45% SOD CHL 1,000 ML IV SCH (21:30)
[2021-02-06] MEDS: SIMVASTATIN 20 MG TAB PO SCH (21:38)
[2021-02-06] MEDS: DEXTROSE 50% SYRINGE 50 ML IV PRN (21:39)
[2021-02-06] MEDS ORDERED: DEXTROSE 50% SYRINGE 50 ML IV ONE (21:39)
[2021-02-07] VITALS (8 sets, daily range): BP systolic 99–131; BP diastolic 57–91
[2021-02-07 06:06] LABS: BASOPHILS % 0.3 % (0.0-1.0); EOSINOPHILS % 0.1 % (0.0-6.0); HEMATOCRIT 41.5 % (34.2-44.1); HEMOGLOBIN 13.6 g/dL (12.0-16.0); LYMPHOCYTES # (AUTO) 1.3 (1.0-3.2); LYMPHOCYTES % 13.7 % (18.0-39.1); MEAN CORPUSCULAR HEMOGLOBIN 32.3 pg (28-32); MEAN CORPUSCULAR HGB CONC 32.8 g/dL (31-35); MEAN CORPUSCULAR VOLUME 98.6 fL (81-99); MONOCYTES # (AUTO) 0.8 (0.2-0.8); MONOCYTES % 8.8 % (4.4-11.3); NEUTROPHILS # (AUTO) 7.2 (2.1-6.9); NEUTROPHILS % 75.9 % (38.7-80.0); PLATELET COUNT 529 x10e3/uL (140-360); RED BLOOD COUNT 4.21 x10e6/uL (3.6-5.1); RED CELL DISTRIBUTION WIDTH 17.4 % (11.7-14.4)
[2021-02-07] MEDS: LEVOTHYROXINE SODIUM 50 MCG TAB PO SCH (06:09)
[2021-02-07 07:21] LABS: ALBUMIN 2.9 g/dL (3.5-5.0); ALBUMIN/GLOBULIN RATIO 0.7 (0.8-2.0); ANION GAP 19.3 mmol/L (8-16); CALCIUM 9.7 mg/dL (8.4-10.2); CREATININE, SERUM 0.77 mg/dL (0.57-1.11); POTASSIUM 3.3 mmol/L (3.5-5.1)
[2021-02-07 07:22] LABS: THYROID STIMULATING HORMONE 2.145 uIU/mL (0.350-4.940)
[2021-02-07] MEDS: INSULIN REGULAR, HUMAN 100 UNIT/1 ML SQ SCH ×4 (07:29→21:00)
[2021-02-07] MEDS: BACLOFEN 10 MG TAB PO SCH ×3 (09:00→22:16)
[2021-02-07] MEDS: FAMOTIDINE 20 MG TAB PO SCH (09:00)
[2021-02-07] MEDS: TROSPIUM CHLORIDE 20 MG PO SCH ×2 (09:05→16:57)
[2021-02-07] MEDS ORDERED: PROMETHAZINE 12.5MG/ NACL 0.9% 12.5 MG/50 ML BAG IV PRN (12:45)
[2021-02-07] MEDS: DULOXETINE HCL 30 MG DELAYED RELEASE PO SCH (16:57)
[2021-02-07] MEDS: GABAPENTIN 300 MG CAP PO SCH (16:57)
[2021-02-07] MEDS: ERTAPENEM 1 GM in SODIUM CHLORIDE 0.9% 50ML 50 ML IV SCH (16:57)
[2021-02-07] MEDS: SIMVASTATIN 20 MG TAB PO SCH (22:16)
[2021-02-08] VITALS (8 sets, daily range): BP systolic 95–136; BP diastolic 40–86
[2021-02-08 06:06] LABS: BASOPHILS % 0.3 % (0.0-1.0); EOSINOPHILS # (AUTO) 0.1 (0.0-0.4); EOSINOPHILS % 0.8 % (0.0-6.0); HEMATOCRIT 40.5 % (34.2-44.1); HEMOGLOBIN 13.4 g/dL (12.0-16.0); LYMPHOCYTES % 18.5 % (18.0-39.1); MEAN CORPUSCULAR HEMOGLOBIN 33.2 pg (28-32); MEAN CORPUSCULAR HGB CONC 33.1 g/dL (31-35); MEAN CORPUSCULAR VOLUME 100.2 fL (81-99); MONOCYTES # (AUTO) 1.4 (0.2-0.8); MONOCYTES % 12.4 % (4.4-11.3); NEUTROPHILS # (AUTO) 7.4 (2.1-6.9); NEUTROPHILS % 67.3 % (38.7-80.0); PLATELET COUNT 461 x10e3/uL (140-360); RED BLOOD COUNT 4.04 x10e6/uL (3.6-5.1); RED CELL DISTRIBUTION WIDTH 17.5 % (11.7-14.4)
[2021-02-08] MEDS: LEVOTHYROXINE SODIUM 50 MCG TAB PO SCH (06:08)
[2021-02-08 06:58] LABS: ALBUMIN 2.7 g/dL (3.5-5.0); ALBUMIN/GLOBULIN RATIO 0.7 (0.8-2.0); ANION GAP 18.3 mmol/L (8-16); CALCIUM 10.2 mg/dL (8.4-10.2); CREATININE, SERUM 0.71 mg/dL (0.57-1.11); POTASSIUM 3.3 mmol/L (3.5-5.1)
[2021-02-08] MEDS: INSULIN REGULAR, HUMAN 100 UNIT/1 ML SQ SCH ×4 (07:30→21:00)
[2021-02-08] MEDS ORDERED: BISACODYL 10 MG SUPP PR ONE ×2 (08:00→16:00)
[2021-02-08] MEDS: TROSPIUM CHLORIDE 20 MG PO SCH ×2 (09:00→17:00)
[2021-02-08] MEDS: BACLOFEN 10 MG TAB PO SCH ×2 (09:33→14:36)
[2021-02-08] MEDS: ONDANSETRON HCL INJ 2MG/ML 2ML 2 MG/ML VIAL IV PRN (09:33)
[2021-02-08] MEDS ORDERED: POTASSIUM CHLORIDE 20 MEQ TAB CR PO ONE (16:30)
[2021-02-08] MEDS: GABAPENTIN 300 MG CAP PO SCH (17:08)
[2021-02-08] MEDS: DULOXETINE HCL 30 MG DELAYED RELEASE PO SCH (17:08)
[2021-02-08] MEDS: MAGNESIUM OXIDE 400 MG TAB PO SCH (17:21)
[2021-02-08] MEDS: ASCORBIC ACID 500 MG TAB PO SCH (17:21)
[2021-02-08] MEDS: ERTAPENEM 1 GM in SODIUM CHLORIDE 0.9% 50ML 50 ML IV SCH (17:45)
[2021-02-09] VITALS (7 sets, daily range): BP systolic 95–151; BP diastolic 50–88
[2021-02-09] MEDS: BACLOFEN 10 MG TAB PO SCH ×4 (01:00→20:57)
[2021-02-09] MEDS: DOCUSATE SODIUM LIQD 100 MG/10 ML UDC NG SCH ×4 (01:00→19:34)
[2021-02-09] MEDS: SIMVASTATIN 20 MG TAB PO SCH ×2 (01:01→20:57)
[2021-02-09] MEDS: LEVOTHYROXINE SODIUM 50 MCG TAB PO SCH (05:38)
[2021-02-09] MEDS: INSULIN REGULAR, HUMAN 100 UNIT/1 ML SQ SCH ×4 (07:30→20:57)
[2021-02-09] MEDS: TROSPIUM CHLORIDE 20 MG PO SCH ×2 (09:00→17:00)
[2021-02-09] MEDS ORDERED: BISACODYL 10 MG SUPP PR ONE (09:00)
[2021-02-09] MEDS ORDERED: BISACODYL 5 MG TAB EC PO SCH (09:00)
[2021-02-09 09:18] LABS: BASOPHILS % 0.3 % (0.0-1.0); EOSINOPHILS # (AUTO) 0.2 (0.0-0.4); EOSINOPHILS % 1.7 % (0.0-6.0); HEMATOCRIT 39.3 % (34.2-44.1); HEMOGLOBIN 12.6 g/dL (12.0-16.0); LYMPHOCYTES # (AUTO) 2.2 (1.0-3.2); LYMPHOCYTES % 18.7 % (18.0-39.1); MEAN CORPUSCULAR HEMOGLOBIN 32.8 pg (28-32); MEAN CORPUSCULAR HGB CONC 32.1 g/dL (31-35); MEAN CORPUSCULAR VOLUME 102.3 fL (81-99); MONOCYTES # (AUTO) 1.7 (0.2-0.8); MONOCYTES % 14.9 % (4.4-11.3); NEUTROPHILS # (AUTO) 7.4 (2.1-6.9); NEUTROPHILS % 63.4 % (38.7-80.0); PLATELET COUNT 368 x10e3/uL (140-360); RED BLOOD COUNT 3.84 x10e6/uL (3.6-5.1); RED CELL DISTRIBUTION WIDTH 17.1 % (11.7-14.4)
[2021-02-09 09:36] LABS: ANION GAP 14.1 mmol/L (8-16); CALCIUM 9.6 mg/dL (8.4-10.2); CREATININE, SERUM 0.64 mg/dL (0.57-1.11); MAGNESIUM 2.1 MG/DL (1.3-2.1); PHOSPHORUS 1.7 MG/DL (2.3-4.7); POTASSIUM 4.1 mmol/L (3.5-5.1)
[2021-02-09] MEDS: MAGNESIUM OXIDE 400 MG TAB PO SCH ×2 (09:52→17:45)
[2021-02-09] MEDS: ZINC SULFATE 220 MG CAP PO SCH (09:53)
[2021-02-09] MEDS: ASCORBIC ACID 500 MG TAB PO SCH ×2 (09:53→17:45)
[2021-02-09] MEDS: MULTIVITAMINS/MINERALS TAB PO SCH (09:53)
[2021-02-09] MEDS: OYST-CAL-D 500MG TABLET PO SCH (09:53)
[2021-02-09] MEDS ORDERED: POTASSIUM PHOSPHATE 15 MM in SODIUM CHLORIDE 0.9% 250ML 250 ML IV ONE (14:30)
[2021-02-09] MEDS ORDERED: SODIUM CHLORIDE 0.9% 1000ML 1,000 ML IV SCH (16:30)
[2021-02-09] MEDS: DULOXETINE HCL 30 MG DELAYED RELEASE PO SCH (17:44)
[2021-02-09] MEDS: GABAPENTIN 300 MG CAP PO SCH (17:45)
[2021-02-09] MEDS: ERTAPENEM 1 GM in SODIUM CHLORIDE 0.9% 50ML 50 ML IV SCH (20:57)
[2021-02-09] MEDS: MELATONIN 5 MG TABLET PO PRN (21:18)
[2021-02-09] MEDS: TRAMADOL HCL 50 MG TAB PO PRN (21:18)
[2021-02-10] VITALS (7 sets, daily range): BP systolic 90–112; BP diastolic 43–72
[2021-02-10 05:01] LABS: BASOPHILS # (AUTO) 0.1 (0.0-0.1); BASOPHILS % 0.4 % (0.0-1.0); EOSINOPHILS # (AUTO) 0.2 (0.0-0.4); HEMATOCRIT 34.1 % (34.2-44.1); HEMOGLOBIN 11.1 g/dL (12.0-16.0); LYMPHOCYTES # (AUTO) 2.3 (1.0-3.2); LYMPHOCYTES % 18.5 % (18.0-39.1); MEAN CORPUSCULAR HEMOGLOBIN 33.4 pg (28-32); MEAN CORPUSCULAR HGB CONC 32.6 g/dL (31-35); MEAN CORPUSCULAR VOLUME 102.7 fL (81-99); MONOCYTES % 8.6 % (4.4-11.3); NEUTROPHILS # (AUTO) 8.5 (2.1-6.9); NEUTROPHILS % 69.4 % (38.7-80.0); PLATELET COUNT 368 x10e3/uL (140-360); RED BLOOD COUNT 3.32 x10e6/uL (3.6-5.1); RED CELL DISTRIBUTION WIDTH 17.1 % (11.7-14.4)
[2021-02-10 05:12] LABS: ANION GAP 16.8 mmol/L (8-16); CALCIUM 9.3 mg/dL (8.4-10.2); CREATININE, SERUM 0.57 mg/dL (0.57-1.11); POTASSIUM 4.8 mmol/L (3.5-5.1)
[2021-02-10] MEDS: LEVOTHYROXINE SODIUM 50 MCG TAB PO SCH (05:17)
[2021-02-10] MEDS: DEXTROSE 50% SYRINGE 50 ML IV PRN (05:17)
[2021-02-10] MEDS ORDERED: DEXTROSE 5%/0.45% SOD CHL 1,000 ML IV ONE (05:45)
[2021-02-10] MEDS: INSULIN REGULAR, HUMAN 100 UNIT/1 ML SQ SCH (07:30)
[2021-02-10] MEDS: OYST-CAL-D 500MG TABLET PO SCH (09:00)
[2021-02-10] MEDS: ZINC SULFATE 220 MG CAP PO SCH (09:00)
[2021-02-10] MEDS: BACLOFEN 10 MG TAB PO SCH ×3 (09:00→22:05)
[2021-02-10] MEDS: TROSPIUM CHLORIDE 20 MG PO SCH ×2 (09:00→17:00)
[2021-02-10] MEDS: MAGNESIUM OXIDE 400 MG TAB PO SCH ×2 (09:00→17:09)
[2021-02-10] MEDS: MULTIVITAMINS/MINERALS TAB PO SCH (09:00)
[2021-02-10] MEDS: DOCUSATE SODIUM LIQD 100 MG/10 ML UDC NG SCH ×3 (09:00→22:05)
[2021-02-10] MEDS: ASCORBIC ACID 500 MG TAB PO SCH ×2 (09:00→17:09)
[2021-02-10] MEDS: DULOXETINE HCL 30 MG DELAYED RELEASE PO SCH (17:09)
[2021-02-10] MEDS: GABAPENTIN 300 MG CAP PO SCH (17:09)
[2021-02-10] MEDS: ERTAPENEM 1 GM in SODIUM CHLORIDE 0.9% 50ML 50 ML IV SCH (17:33)
[2021-02-10] MEDS: TRAMADOL HCL 50 MG TAB PO PRN ×2 (17:55→22:49)
[2021-02-10] MEDS: DEXTROSE 5%/0.45% SOD CHL 1,000 ML IV SCH (22:05)
[2021-02-10] MEDS: SIMVASTATIN 20 MG TAB PO SCH (22:05)
[2021-02-10] MEDS: MELATONIN 5 MG TABLET PO PRN (22:49)
[2021-02-10] MEDS: ONDANSETRON HCL INJ 2MG/ML 2ML 2 MG/ML VIAL IV PRN (23:29)
[2021-02-11] VITALS: BP 129/58
[2021-02-11] MEDS: LEVOTHYROXINE SODIUM 50 MCG TAB PO SCH (05:15)
[2021-02-11 05:54] LABS: BASOPHILS % 0.4 % (0.0-1.0); EOSINOPHILS # (AUTO) 0.2 (0.0-0.4); EOSINOPHILS % 2.1 % (0.0-6.0); HEMATOCRIT 32.7 % (34.2-44.1); HEMOGLOBIN 10.8 g/dL (12.0-16.0); LYMPHOCYTES # (AUTO) 2.5 (1.0-3.2); LYMPHOCYTES % 24.9 % (18.0-39.1); MEAN CORPUSCULAR HEMOGLOBIN 32.9 pg (28-32); MEAN CORPUSCULAR VOLUME 99.7 fL (81-99); MONOCYTES # (AUTO) 1.1 (0.2-0.8); MONOCYTES % 10.7 % (4.4-11.3); NEUTROPHILS % 59.8 % (38.7-80.0); PLATELET COUNT 365 x10e3/uL (140-360); RED BLOOD COUNT 3.28 x10e6/uL (3.6-5.1); RED CELL DISTRIBUTION WIDTH 16.8 % (11.7-14.4)
[2021-02-11 06:22] LABS: ANION GAP 12.4 mmol/L (8-16); CALCIUM 8.5 mg/dL (8.4-10.2); CREATININE, SERUM 0.56 mg/dL (0.57-1.11); PHOSPHORUS 2.7 MG/DL (2.3-4.7); POTASSIUM 4.4 mmol/L (3.5-5.1)
[2021-02-11 08:14] VITALS: BP 115/53
[2021-02-11] MEDS: DOCUSATE SODIUM LIQD 100 MG/10 ML UDC NG SCH ×2 (09:56→15:00)
[2021-02-11] MEDS: OYST-CAL-D 500MG TABLET PO SCH (09:57)
[2021-02-11] MEDS: MAGNESIUM OXIDE 400 MG TAB PO SCH ×2 (09:57→18:09)
[2021-02-11] MEDS: ASCORBIC ACID 500 MG TAB PO SCH ×2 (09:57→18:09)
[2021-02-11] MEDS: MULTIVITAMINS/MINERALS TAB PO SCH (09:57)
[2021-02-11] MEDS: ZINC SULFATE 220 MG CAP PO SCH (09:58)
[2021-02-11] MEDS: BACLOFEN 10 MG TAB PO SCH ×3 (10:02→20:54)
[2021-02-11] MEDS: TROSPIUM CHLORIDE 20 MG PO SCH ×2 (10:03→18:09)
[2021-02-11] MEDS ORDERED: MEROPENEM IV SCH (14:00)
[2021-02-11] MEDS ORDERED: SODIUM CHLORIDE 0.9% IV SCH (14:00)
[2021-02-11] MEDS: GABAPENTIN 300 MG CAP PO SCH (18:09)
[2021-02-11] MEDS: DULOXETINE HCL 30 MG DELAYED RELEASE PO SCH (18:09)
[2021-02-11] MEDS: DEXTROSE 5%/0.45% SOD CHL 1,000 ML IV SCH (18:09)
[2021-02-11 20:00] VITALS: BP 120/55
[2021-02-11] MEDS: DOCUSATE SODIUM 100 MG CAP PO SCH (20:54)
[2021-02-11] MEDS: SIMVASTATIN 20 MG TAB PO SCH (20:54)
[2021-02-11 21:49] VITALS: BP 120/55
[2021-02-12] VITALS (8 sets, daily range): BP systolic 100–129; BP diastolic 56–91
[2021-02-12] MEDS: ACETAMINOPHEN 325 MG TAB PO PRN (05:49)
[2021-02-12] MEDS: LEVOTHYROXINE SODIUM 50 MCG TAB PO SCH (05:49)
[2021-02-12 06:11] LABS: BASOPHILS # (AUTO) 0.1 (0.0-0.1); BASOPHILS % 0.6 % (0.0-1.0); EOSINOPHILS # (AUTO) 0.2 (0.0-0.4); EOSINOPHILS % 2.1 % (0.0-6.0); HEMATOCRIT 33.8 % (34.2-44.1); LYMPHOCYTES # (AUTO) 2.5 (1.0-3.2); LYMPHOCYTES % 27.2 % (18.0-39.1); MEAN CORPUSCULAR HEMOGLOBIN 32.7 pg (28-32); MEAN CORPUSCULAR HGB CONC 32.5 g/dL (31-35); MEAN CORPUSCULAR VOLUME 100.6 fL (81-99); MONOCYTES % 10.3 % (4.4-11.3); NEUTROPHILS # (AUTO) 5.3 (2.1-6.9); NEUTROPHILS % 57.7 % (38.7-80.0); PLATELET COUNT 399 x10e3/uL (140-360); RED BLOOD COUNT 3.36 x10e6/uL (3.6-5.1); RED CELL DISTRIBUTION WIDTH 16.7 % (11.7-14.4)
[2021-02-12 06:21] LABS: ANION GAP 11.4 mmol/L (8-16); CALCIUM 8.6 mg/dL (8.4-10.2); CREATININE, SERUM 0.58 mg/dL (0.57-1.11); POTASSIUM 4.4 mmol/L (3.5-5.1)
[2021-02-12] MEDS: DOCUSATE SODIUM 100 MG CAP PO SCH ×3 (10:06→20:23)
[2021-02-12] MEDS: TROSPIUM CHLORIDE 20 MG PO SCH ×2 (10:06→17:44)
[2021-02-12] MEDS: BACLOFEN 10 MG TAB PO SCH ×3 (10:07→20:23)
[2021-02-12] MEDS: OYST-CAL-D 500MG TABLET PO SCH (10:07)
[2021-02-12] MEDS: MULTIVITAMINS/MINERALS TAB PO SCH (10:07)
[2021-02-12] MEDS: MAGNESIUM OXIDE 400 MG TAB PO SCH ×2 (10:07→17:44)
[2021-02-12] MEDS: ASCORBIC ACID 500 MG TAB PO SCH ×2 (10:07→17:44)
[2021-02-12] MEDS: ZINC SULFATE 220 MG CAP PO SCH (10:07)
[2021-02-12] MEDS: DEXTROSE 5%/0.45% SOD CHL 1,000 ML IV SCH (13:50)
[2021-02-12] MEDS: GABAPENTIN 300 MG CAP PO SCH (17:44)
[2021-02-12] MEDS: DULOXETINE HCL 30 MG DELAYED RELEASE PO SCH (17:44)
[2021-02-12] MEDS: SIMVASTATIN 20 MG TAB PO SCH (20:23)
[2021-02-13] VITALS: BP 136/73
[2021-02-13] MEDS: ACETAMINOPHEN 325 MG TAB PO PRN ×2 (01:46→13:28)
[2021-02-13 04:00] VITALS: BP 108/65
[2021-02-13] MEDS: LEVOTHYROXINE SODIUM 50 MCG TAB PO SCH (05:22)
[2021-02-13 07:58] VITALS: BP 118/70
[2021-02-13 08:07] VITALS: BP 118/70
[2021-02-13] MEDS: TROSPIUM CHLORIDE 20 MG PO SCH (09:00)
[2021-02-13] MEDS: DOCUSATE SODIUM 100 MG CAP PO SCH (09:13)
[2021-02-13] MEDS: BACLOFEN 10 MG TAB PO SCH (09:14)
[2021-02-13] MEDS: OYST-CAL-D 500MG TABLET PO SCH (09:14)
[2021-02-13] MEDS: ZINC SULFATE 220 MG CAP PO SCH (09:14)
[2021-02-13] MEDS: ASCORBIC ACID 500 MG TAB PO SCH (09:14)
[2021-02-13] MEDS: MULTIVITAMINS/MINERALS TAB PO SCH (09:14)
[2021-02-13] MEDS: MAGNESIUM OXIDE 400 MG TAB PO SCH (09:14)
[2021-02-13 11:30] VITALS: BP 108/61
[2021-02-13] MEDS ORDERED: ONDANSETRON HCL 4 MG ORAL DISINTEGRATING TAB PO PRN (12:45)
[2021-02-14] MEDS ORDERED: PANTOPRAZOLE SOD 40 MG TABEC PO SCH (07:30)
== END 2021-02-13 14:17 | disposition home health service (06) | DRG 690 ==
LOC: ER 13:58 → ERHOLD 16:28 → MED/SURG3 18:15 → UNDODISIN 02-08 19:42
PROVIDERS: ADMIT Internal Medicine; ATTEND Internal Medicine
DX: N12 Tubulo-interstitial nephritis, not specified as acute or chronic (principal); Z16.24 Resistance to multiple antibiotics; G35 Multiple sclerosis; E03.9 Hypothyroidism, unspecified; L89.152 Pressure ulcer of sacral region, stage 2; B96.1 Klebsiella pneumoniae [K. pneumoniae] as the cause of diseases classified elsewhere; B96.4 Proteus (mirabilis) (morganii) as the cause of diseases classified elsewhere; F32.A Depression, unspecified; E16.2 Hypoglycemia, unspecified; E78.5 Hyperlipidemia, unspecified; E83.39 Other disorders of phosphorus metabolism; E87.6 Hypokalemia; E66.9 Obesity, unspecified; Z68.29 Body mass index [BMI] 29.0-29.9, adult
CPT/HCPCS: 36415; 36569; 71045; 74018; 80048; 80053; 81001; 82550; 82553; 82948; 83735; 84100; 84443; 84484; 85025; 85610; 85730; 87040; 87071; 87086; 87186; 87205; 93005; 94799; 97139; 99251; 99284; J0696; J1335; J2185; J2405; J2550; J3370; J3480; J7030; J7050; J7799; U0002

== ENCOUNTER 2021-02-14 11:05 | Inpatient (IN) | payer MEDICARE, OTHER ==
[~2021-02-14] VITALS: Ht 172.7 cm; Wt 76.2 kg
[2021-02-14 11:40] LABS: BASOPHILS # (AUTO) 0.1 (0.0-0.1); BASOPHILS % 0.7 % (0.0-1.0); EOSINOPHILS # (AUTO) 0.2 (0.0-0.4); EOSINOPHILS % 1.7 % (0.0-6.0); HEMATOCRIT 37.3 % (34.2-44.1); HEMOGLOBIN 11.7 g/dL (12.0-16.0); LYMPHOCYTES # (AUTO) 1.6 (1.0-3.2); LYMPHOCYTES % 17.7 % (18.0-39.1); MEAN CORPUSCULAR HEMOGLOBIN 32.5 pg (28-32); MEAN CORPUSCULAR HGB CONC 31.4 g/dL (31-35); MEAN CORPUSCULAR VOLUME 103.6 fL (81-99); MONOCYTES # (AUTO) 0.7 (0.2-0.8); MONOCYTES % 7.5 % (4.4-11.3); NEUTROPHILS # (AUTO) 6.4 (2.1-6.9); NEUTROPHILS % 71.5 % (38.7-80.0); PLATELET COUNT 427 x10e3/uL (140-360); RED CELL DISTRIBUTION WIDTH 16.7 % (11.7-14.4)
[2021-02-14 11:55] LABS: ALBUMIN 2.5 g/dL (3.5-5.0); ALBUMIN/GLOBULIN RATIO 0.8 (0.8-2.0); ANION GAP 15.5 mmol/L (8-16); CALCIUM 8.4 mg/dL (8.4-10.2); CREATININE, SERUM 0.6 mg/dL (0.57-1.11); POTASSIUM 4.5 mmol/L (3.5-5.1)
[2021-02-14 12:18] LABS: CLARITY,URINE CLEAR (CLEAR); COLOR,URINE YELLOW (YELLOW)
[2021-02-14 12:19] LABS: KETONES,URINE TRACE (NEGATIVE); LEUKOCYTE ESTERASE ,URINE NEGATIVE (NEGATIVE); NITRITE,URINE NEGATIVE (NEGATIVE); PROTEIN,URINE DIPSTICK NEGATIVE (NEGATIVE); URINE UROBILINOGEN 0.2 mg/dL (0.2 - 1)
[2021-02-14 12:23] LABS: BACTERIA,URINE FEW /HPF; EPITHELIAL CELLS,URINE FEW /LPF; WBC,URINE (MAN) 0-5 /HPF (0-5)
[2021-02-14 15:30] VITALS: BP 126/73
[2021-02-14 15:43] VITALS: BP 96/50
[2021-02-14 16:05] VITALS: BP 96/50
[2021-02-14] MEDS ORDERED: POLYETHYLENE GLYCOL 3350 17 GM PACK PO PRN (18:15)
[2021-02-14] MEDS ORDERED: ACETAMINOPHEN 325 MG TAB PO PRN (18:15)
[2021-02-14] MEDS ORDERED: DOCUSATE SODIUM 100 MG CAP PO PRN (18:15)
[2021-02-14] MEDS: TRAMADOL HCL 50 MG TAB PO PRN (19:07)
[2021-02-14 20:24] VITALS: BP 89/46
[2021-02-14 20:30] VITALS: BP 95/51
[2021-02-14 21:00] VITALS: BP 89/46
[2021-02-14] MEDS: BACLOFEN 10 MG TAB PO SCH (21:50)
[2021-02-14] MEDS: SIMVASTATIN 20 MG TAB PO SCH (21:50)
[2021-02-15] VITALS (8 sets, daily range): BP systolic 89–103; BP diastolic 48–57
[2021-02-15] MEDS: LEVOTHYROXINE SODIUM 50 MCG TAB PO SCH (06:25)
[2021-02-15] MEDS: BACLOFEN 10 MG TAB PO SCH ×3 (08:51→21:10)
[2021-02-15] MEDS: NON-FORMULARY MEDICATION (Trospium Chloride 20 MG) PO SCH ×2 (08:51→15:06)
[2021-02-15] MEDS: TRAMADOL HCL 50 MG TAB PO PRN ×2 (09:54→16:10)
[2021-02-15] MEDS: DULOXETINE HCL 30 MG DELAYED RELEASE PO SCH (16:04)
[2021-02-15] MEDS: GABAPENTIN 300 MG CAP PO SCH (16:05)
[2021-02-15] MEDS: ENOXAPARIN 30 MG/0.3 ML SYR SC SCH (21:11)
[2021-02-15] MEDS: SIMVASTATIN 20 MG TAB PO SCH (21:11)
[2021-02-15] MEDS: MELATONIN 5 MG TABLET PO PRN (23:19)
[2021-02-16] VITALS (11 sets, daily range): BP systolic 81–105; BP diastolic 34–59
[2021-02-16] MEDS: LEVOTHYROXINE SODIUM 50 MCG TAB PO SCH (06:13)
[2021-02-16 09:00] LABS: BASOPHILS # (AUTO) 0.1 (0.0-0.1); BASOPHILS % 0.7 % (0.0-1.0); EOSINOPHILS # (AUTO) 0.1 (0.0-0.4); EOSINOPHILS % 1.4 % (0.0-6.0); HEMATOCRIT 37.8 % (34.2-44.1); HEMOGLOBIN 11.8 g/dL (12.0-16.0); LYMPHOCYTES # (AUTO) 2.4 (1.0-3.2); MEAN CORPUSCULAR HEMOGLOBIN 32.4 pg (28-32); MEAN CORPUSCULAR HGB CONC 31.2 g/dL (31-35); MEAN CORPUSCULAR VOLUME 103.8 fL (81-99); MONOCYTES # (AUTO) 0.9 (0.2-0.8); MONOCYTES % 8.9 % (4.4-11.3); NEUTROPHILS # (AUTO) 6.8 (2.1-6.9); NEUTROPHILS % 65.5 % (38.7-80.0); PLATELET COUNT 474 x10e3/uL (140-360); RED BLOOD COUNT 3.64 x10e6/uL (3.6-5.1); RED CELL DISTRIBUTION WIDTH 16.4 % (11.7-14.4)
[2021-02-16 09:27] LABS: ALBUMIN 2.3 g/dL (3.5-5.0); ALBUMIN/GLOBULIN RATIO 0.7 (0.8-2.0); CREATININE, SERUM 0.62 mg/dL (0.57-1.11)
[2021-02-16] MEDS: NON-FORMULARY MEDICATION (Trospium Chloride 20 MG) PO SCH ×2 (09:44→17:25)
[2021-02-16] MEDS: BACLOFEN 10 MG TAB PO SCH ×3 (09:44→20:58)
[2021-02-16] MEDS: ENOXAPARIN 30 MG/0.3 ML SYR SC SCH ×2 (09:45→20:58)
[2021-02-16] MEDS: TRAMADOL HCL 50 MG TAB PO PRN (12:52)
[2021-02-16] MEDS: GABAPENTIN 300 MG CAP PO SCH (17:25)
[2021-02-16] MEDS: DULOXETINE HCL 30 MG DELAYED RELEASE PO SCH (17:25)
[2021-02-16] MEDS ORDERED: DEXTROSE 50% SYRINGE 50 ML IV PRN (20:45)
[2021-02-16] MEDS: SIMVASTATIN 20 MG TAB PO SCH (20:58)
[2021-02-16] MEDS: AMOXICILLIN/CLAVULANATE K 500 MG TAB PO SCH (20:58)
[2021-02-17] VITALS (8 sets, daily range): BP systolic 94–125; BP diastolic 49–75
[2021-02-17] MEDS: MELATONIN 5 MG TABLET PO PRN (00:13)
[2021-02-17] MEDS: LEVOTHYROXINE SODIUM 50 MCG TAB PO SCH (05:32)
[2021-02-17 07:48] LABS: BASOPHILS # (AUTO) 0.1 (0.0-0.1); BASOPHILS % 0.4 % (0.0-1.0); EOSINOPHILS # (AUTO) 0.1 (0.0-0.4); HEMATOCRIT 38.3 % (34.2-44.1); HEMOGLOBIN 11.9 g/dL (12.0-16.0); LYMPHOCYTES # (AUTO) 1.8 (1.0-3.2); LYMPHOCYTES % 12.9 % (18.0-39.1); MEAN CORPUSCULAR HEMOGLOBIN 32.8 pg (28-32); MEAN CORPUSCULAR HGB CONC 31.1 g/dL (31-35); MEAN CORPUSCULAR VOLUME 105.5 fL (81-99); MONOCYTES # (AUTO) 1.4 (0.2-0.8); MONOCYTES % 10.1 % (4.4-11.3); NEUTROPHILS # (AUTO) 10.2 (2.1-6.9); NEUTROPHILS % 75.2 % (38.7-80.0); PLATELET COUNT 407 x10e3/uL (140-360); RED BLOOD COUNT 3.63 x10e6/uL (3.6-5.1); RED CELL DISTRIBUTION WIDTH 16.4 % (11.7-14.4)
[2021-02-17 08:06] LABS: ANION GAP 13.7 mmol/L (8-16); CALCIUM 8.3 mg/dL (8.4-10.2); CREATININE, SERUM 0.56 mg/dL (0.57-1.11); POTASSIUM 3.7 mmol/L (3.5-5.1)
[2021-02-17] MEDS: AMOXICILLIN/CLAVULANATE K 500 MG TAB PO SCH ×2 (09:17→21:30)
[2021-02-17] MEDS: BACLOFEN 10 MG TAB PO SCH ×3 (09:17→21:30)
[2021-02-17] MEDS: PREDNISONE 20 MG TAB PO SCH (09:17)
[2021-02-17] MEDS: ENOXAPARIN 30 MG/0.3 ML SYR SC SCH ×2 (09:18→21:30)
[2021-02-17] MEDS: NON-FORMULARY MEDICATION (Trospium Chloride 20 MG) PO SCH ×2 (09:21→17:15)
[2021-02-17 12:52] LABS: CLARITY,URINE SL CLOUDY (CLEAR); COLOR,URINE YELLOW (YELLOW); KETONES,URINE >=160 (NEGATIVE); LEUKOCYTE ESTERASE ,URINE NEGATIVE (NEGATIVE); NITRITE,URINE NEGATIVE (NEGATIVE); PROTEIN,URINE DIPSTICK TRACE (NEGATIVE); URINE UROBILINOGEN 0.2 mg/dL (0.2 - 1)
[2021-02-17 13:06] LABS: BACTERIA,URINE RARE /HPF; EPITHELIAL CELLS,URINE FEW /LPF; RBC,URINE 0-5 /HPF (0-5); WBC,URINE (MAN) 0-5 /HPF (0-5)
[2021-02-17 16:19] LABS: PHOSPHORUS 3.4 MG/DL (2.3-4.7)
[2021-02-17] MEDS: TRAMADOL HCL 50 MG TAB PO PRN (16:40)
[2021-02-17] MEDS: GABAPENTIN 300 MG CAP PO SCH (17:15)
[2021-02-17] MEDS: DULOXETINE HCL 30 MG DELAYED RELEASE PO SCH (17:15)
[2021-02-17] MEDS: SIMVASTATIN 20 MG TAB PO SCH (21:30)
[2021-02-18] VITALS (8 sets, daily range): BP systolic 94–126; BP diastolic 55–65
[2021-02-18] MEDS: LEVOTHYROXINE SODIUM 50 MCG TAB PO SCH (05:15)
[2021-02-18 05:59] LABS: BASOPHILS % 0.2 % (0.0-1.0); HEMATOCRIT 35.5 % (34.2-44.1); HEMOGLOBIN 11.9 g/dL (12.0-16.0); LYMPHOCYTES # (AUTO) 0.9 (1.0-3.2); LYMPHOCYTES % 7.3 % (18.0-39.1); MEAN CORPUSCULAR HEMOGLOBIN 32.6 pg (28-32); MEAN CORPUSCULAR HGB CONC 33.5 g/dL (31-35); MEAN CORPUSCULAR VOLUME 97.3 fL (81-99); MONOCYTES # (AUTO) 0.8 (0.2-0.8); MONOCYTES % 6.1 % (4.4-11.3); NEUTROPHILS # (AUTO) 10.5 (2.1-6.9); NEUTROPHILS % 85.3 % (38.7-80.0); PLATELET COUNT 474 x10e3/uL (140-360); RED BLOOD COUNT 3.65 x10e6/uL (3.6-5.1); RED CELL DISTRIBUTION WIDTH 15.9 % (11.7-14.4)
[2021-02-18 06:30] LABS: ALBUMIN 2.2 g/dL (3.5-5.0); ALBUMIN/GLOBULIN RATIO 0.6 (0.8-2.0); CALCIUM 8.3 mg/dL (8.4-10.2); CREATININE, SERUM 0.55 mg/dL (0.57-1.11)
[2021-02-18] MEDS: ENOXAPARIN 30 MG/0.3 ML SYR SC SCH ×2 (09:09→21:55)
[2021-02-18] MEDS: BACLOFEN 10 MG TAB PO SCH ×3 (09:09→21:55)
[2021-02-18] MEDS: AMOXICILLIN/CLAVULANATE K 500 MG TAB PO SCH ×2 (09:09→21:55)
[2021-02-18] MEDS: NON-FORMULARY MEDICATION (Trospium Chloride 20 MG) PO SCH ×2 (09:09→16:39)
[2021-02-18] MEDS: PREDNISONE 20 MG TAB PO SCH (09:09)
[2021-02-18] MEDS: TRAMADOL HCL 50 MG TAB PO PRN ×2 (14:52→22:00)
[2021-02-18] MEDS: BISACODYL 5 MG TAB EC PO SCH (16:39)
[2021-02-18] MEDS: GABAPENTIN 300 MG CAP PO SCH (16:39)
[2021-02-18] MEDS: DULOXETINE HCL 30 MG DELAYED RELEASE PO SCH (16:39)
[2021-02-18] MEDS: SIMVASTATIN 20 MG TAB PO SCH (21:55)
[2021-02-18] MEDS: MELATONIN 5 MG TABLET PO PRN (22:00)
[2021-02-19] VITALS (8 sets, daily range): BP systolic 111–128; BP diastolic 54–69
[2021-02-19 06:19] LABS: BASOPHILS % 0.3 % (0.0-1.0); EOSINOPHILS % 0.1 % (0.0-6.0); HEMATOCRIT 33.4 % (34.2-44.1); HEMOGLOBIN 10.9 g/dL (12.0-16.0); LYMPHOCYTES # (AUTO) 1.4 (1.0-3.2); LYMPHOCYTES % 13.5 % (18.0-39.1); MEAN CORPUSCULAR HEMOGLOBIN 32.3 pg (28-32); MEAN CORPUSCULAR HGB CONC 32.6 g/dL (31-35); MEAN CORPUSCULAR VOLUME 99.1 fL (81-99); MONOCYTES # (AUTO) 1.1 (0.2-0.8); MONOCYTES % 10.5 % (4.4-11.3); NEUTROPHILS # (AUTO) 7.5 (2.1-6.9); NEUTROPHILS % 73.2 % (38.7-80.0); PLATELET COUNT 433 x10e3/uL (140-360); RED BLOOD COUNT 3.37 x10e6/uL (3.6-5.1); RED CELL DISTRIBUTION WIDTH 16.1 % (11.7-14.4)
[2021-02-19] MEDS: LEVOTHYROXINE SODIUM 50 MCG TAB PO SCH (06:20)
[2021-02-19 06:43] LABS: ALBUMIN 2.2 g/dL (3.5-5.0); ALBUMIN/GLOBULIN RATIO 0.7 (0.8-2.0); ANION GAP 10.4 mmol/L (8-16); CALCIUM 8.1 mg/dL (8.4-10.2); CREATININE, SERUM 0.66 mg/dL (0.57-1.11); POTASSIUM 3.4 mmol/L (3.5-5.1)
[2021-02-19] MEDS: ENOXAPARIN 30 MG/0.3 ML SYR SC SCH ×2 (08:36→21:30)
[2021-02-19] MEDS: BISACODYL 5 MG TAB EC PO SCH (08:36)
[2021-02-19] MEDS: AMOXICILLIN/CLAVULANATE K 500 MG TAB PO SCH ×2 (08:36→21:30)
[2021-02-19] MEDS: BACLOFEN 10 MG TAB PO SCH ×3 (08:36→21:30)
[2021-02-19] MEDS: NON-FORMULARY MEDICATION (Trospium Chloride 20 MG) PO SCH ×2 (08:36→16:28)
[2021-02-19] MEDS: PREDNISONE 20 MG TAB PO SCH (08:36)
[2021-02-19] MEDS: DULOXETINE HCL 30 MG DELAYED RELEASE PO SCH (16:28)
[2021-02-19] MEDS: GABAPENTIN 300 MG CAP PO SCH (16:29)
[2021-02-19] MEDS ORDERED: CLONAZEPAM 0.5 MG TAB PO ONE (21:15)
[2021-02-19] MEDS: TRAMADOL HCL 50 MG TAB PO PRN (21:30)
[2021-02-19] MEDS: SIMVASTATIN 20 MG TAB PO SCH (21:30)
[2021-02-20] VITALS: BP 117/55
[2021-02-20 04:00] VITALS: BP 120/60
[2021-02-20 05:31] LABS: BASOPHILS % 0.3 % (0.0-1.0); EOSINOPHILS % 0.1 % (0.0-6.0); HEMATOCRIT 32.5 % (34.2-44.1); HEMOGLOBIN 10.5 g/dL (12.0-16.0); LYMPHOCYTES # (AUTO) 2.3 (1.0-3.2); LYMPHOCYTES % 21.6 % (18.0-39.1); MEAN CORPUSCULAR HEMOGLOBIN 32.3 pg (28-32); MEAN CORPUSCULAR HGB CONC 32.3 g/dL (31-35); MONOCYTES % 9.2 % (4.4-11.3); NEUTROPHILS # (AUTO) 6.9 (2.1-6.9); NEUTROPHILS % 65.6 % (38.7-80.0); PLATELET COUNT 424 x10e3/uL (140-360); RED BLOOD COUNT 3.25 x10e6/uL (3.6-5.1); RED CELL DISTRIBUTION WIDTH 16.3 % (11.7-14.4)
[2021-02-20 05:54] LABS: ALBUMIN 2.1 g/dL (3.5-5.0); ALBUMIN/GLOBULIN RATIO 0.7 (0.8-2.0); ANION GAP 11.7 mmol/L (8-16); CALCIUM 8.6 mg/dL (8.4-10.2); CREATININE, SERUM 0.56 mg/dL (0.57-1.11); POTASSIUM 3.7 mmol/L (3.5-5.1)
[2021-02-20] MEDS: LEVOTHYROXINE SODIUM 50 MCG TAB PO SCH (06:50)
[2021-02-20 07:34] VITALS: BP 106/48
[2021-02-20 08:32] VITALS: BP 106/48
[2021-02-20] MEDS: BISACODYL 5 MG TAB EC PO SCH (09:39)
[2021-02-20] MEDS: ENOXAPARIN 30 MG/0.3 ML SYR SC SCH (09:39)
[2021-02-20] MEDS: NON-FORMULARY MEDICATION (Trospium Chloride 20 MG) PO SCH (09:39)
[2021-02-20] MEDS: AMOXICILLIN/CLAVULANATE K 500 MG TAB PO SCH (09:39)
[2021-02-20] MEDS: BACLOFEN 10 MG TAB PO SCH (09:39)
[2021-02-20 11:34] VITALS: BP 114/63
[2021-02-20] MEDS ORDERED: AUGMENTIN 500-1 EACH PO (12:11)
== END 2021-02-20 14:51 | disposition home or self-care (01) | DRG 71 ==
LOC: ER 11:35 → ERHOLD 13:32 → ER 14:43 → MED/SURG3 15:00 → OBSVTOIN 02-15 14:27
PROVIDERS: ADMIT Internal Medicine; ATTEND Internal Medicine
DX: G93.41 Metabolic encephalopathy (principal); E46 Unspecified protein-calorie malnutrition; F03.90 Unspecified dementia, unspecified severity, without behavioral disturbance, psychotic disturbance, mood disturbance, and anxiety; G35 Multiple sclerosis; L89.152 Pressure ulcer of sacral region, stage 2; Z87.440 Personal history of urinary (tract) infections; E03.9 Hypothyroidism, unspecified; F41.9 Anxiety disorder, unspecified; F32.A Depression, unspecified; Z68.25 Body mass index [BMI] 25.0-25.9, adult; Z86.73 Personal history of transient ischemic attack (TIA), and cerebral infarction without residual deficits; G62.9 Polyneuropathy, unspecified; R59.0 Localized enlarged lymph nodes; R53.81 Other malaise; E16.2 Hypoglycemia, unspecified; Z74.01 Bed confinement status; Z88.5 Allergy status to narcotic agent; Z20.822 Contact with and (suspected) exposure to COVID-19
CPT/HCPCS: 36415; 51700; 70450; 74018; 76536; 80048; 80053; 81001; 82140; 82948; 83735; 84100; 84132; 85025; 87040; 87086; 93005; 94799; 97139; 99251; 99284; G0378; J1650; J7512; U0002

== ENCOUNTER 2021-03-13 09:35 | Inpatient (IN) | payer MEDICARE ==
[~2021-03-13] VITALS: Ht 172.7 cm; Wt 76.2 kg
[~2021-03-13 09:35] MED LIST changes: +AUGMENTIN 500-1 EACH PO
[2021-03-13] MEDS ORDERED: SODIUM CHLORIDE 0.9% 1000ML 1,000 ML IV STA ×2 (09:45→10:32)
[2021-03-13] MEDS ORDERED: MEROPENEM 1 GM in SODIUM CHLORIDE 0.9% 100 ML IV ONE (09:45)
[2021-03-13 10:06] LABS: ABG PCO2 37 mmHg (35-45); ABG PH 7.36 (7.35-7.45); ABG PO2 116 mmHg (80-105)
[2021-03-13 10:07] LABS: ABG HCO3 21 mmol/L (22-26); ABG TCO2 22
[2021-03-13 10:16] LABS: BASOPHILS % 0.3 % (0.0-1.0); LYMPHOCYTES # (AUTO) 0.6 (1.0-3.2); LYMPHOCYTES % 3.7 % (18.0-39.1); MEAN CORPUSCULAR HEMOGLOBIN 33.7 pg (28-32); MEAN CORPUSCULAR HGB CONC 33.3 g/dL (31-35); MEAN CORPUSCULAR VOLUME 101.1 fL (81-99); MONOCYTES # (AUTO) 1.4 (0.2-0.8); MONOCYTES % 8.7 % (4.4-11.3); NEUTROPHILS # (AUTO) 13.4 (2.1-6.9); NEUTROPHILS % 86.7 % (38.7-80.0); PLATELET COUNT 481 x10e3/uL (140-360); RED BLOOD COUNT 4.45 x10e6/uL (3.6-5.1); RED CELL DISTRIBUTION WIDTH 17.5 % (11.7-14.4)
[2021-03-13 10:28] LABS: ALBUMIN 2.8 g/dL (3.5-5.0); ALBUMIN/GLOBULIN RATIO 0.7 (0.8-2.0); ANION GAP 12.6 mmol/L (8-16); CALCIUM 11.1 mg/dL (8.4-10.2); CREATININE, SERUM 0.75 mg/dL (0.57-1.11); MAGNESIUM 2.8 MG/DL (1.3-2.1)
[2021-03-13 10:29] LABS: INR 0.88; PROTHROMBIN TIME 12.7 seconds (11.9-14.5)
[2021-03-13 10:30] LABS: PARTIAL THROMBOPLASTIN TIME 31.1 seconds (23.8-35.5)
[2021-03-13 10:31] LABS: POTASSIUM 2.6 mmol/L (3.5-5.1)
[2021-03-13 10:32] LABS: SALICYLATE < 5.0 mg/dL (0-30)
[2021-03-13 10:37] LABS: CREATINE KINASE MB 0.8 ng/mL (0-5.0)
[2021-03-13 10:51] LABS: AMPHETAMINES SCREEN,URINE NEGATIVE (NEGATIVE); BENZODIAZEPINES SCREEN,URINE NEGATIVE (NEGATIVE); CLARITY,URINE CLEAR (CLEAR); COLOR,URINE YELLOW (YELLOW); KETONES,URINE NEGATIVE (NEGATIVE); LEUKOCYTE ESTERASE ,URINE NEGATIVE (NEGATIVE); NITRITE,URINE NEGATIVE (NEGATIVE); PHENCYCLIDINE SCREEN,URINE NEGATIVE (NEGATIVE); PROTEIN,URINE DIPSTICK NEGATIVE (NEGATIVE); URINE UROBILINOGEN 0.2 mg/dL (0.2 - 1)
[2021-03-13 11:03] LABS: RBC,URINE 0-5 /HPF (0-5); WBC,URINE (MAN) 0-5 /HPF (0-5)
[2021-03-13 11:04] LABS: BACTERIA,URINE RARE /HPF; EPITHELIAL CELLS,URINE RARE /LPF
[2021-03-13] MEDS: POTASSIUM CHLORIDE 10MEQ/100ML 100 ML IV SCH ×3 (11:45→12:45)
[2021-03-13] MEDS ORDERED: KCL 20MEQ/.9 SOD CHL 1,000 ML IV ONE (11:45)
[2021-03-13] MEDS ORDERED: POLYETHYLENE GLYCOL 3350 17 GM PACK PO PRN (13:15)
[2021-03-13] MEDS ORDERED: ONDANSETRON HCL INJ 2MG/ML 2ML 2 MG/ML VIAL IV PRN (13:15)
[2021-03-13] MEDS ORDERED: DOCUSATE SODIUM 100 MG CAP PO PRN (13:15)
[2021-03-13] MEDS ORDERED: ACETAMINOPHEN 325 MG TAB PO PRN (13:15)
[2021-03-13] MEDS: LACTATED RINGER'S 1,000 ML INJ SCH ×2 (13:37→20:40)
[2021-03-13] MEDS ORDERED: TRAMADOL HCL 50 MG TAB PO PRN (14:00)
[2021-03-13] MEDS ORDERED: Vancomycin IV 1 GM in SODIUM CHLORIDE 0.9% 250ML 250 ML IV ONE (15:45)
[2021-03-13] MEDS ORDERED: ENOXAPARIN SOD INJ 40 MG/0.4 ML SYR SC SCH (17:00)
[2021-03-13] MEDS: MEROPENEM 1 GM in SODIUM CHLORIDE 0.9% 100 ML IV SCH (17:37)
[2021-03-13] MEDS ORDERED: SODIUM CHLORIDE 0.9% 1000ML 1,000 ML IV ONE (17:45)
[2021-03-13] MEDS ORDERED: NOREPINEPHRINE 8 MG/D5W 250 ML 250 ML ONE (17:47)
[2021-03-13] MEDS ORDERED: NOREPINEPHRINE 8 MG/D5W 250 ML 250 ML IV SCH (18:00)
[2021-03-13] MEDS ORDERED: LACTATED RINGER'S 1,000 ML IV ONE (18:00)
[2021-03-13] MEDS ORDERED: SIMVASTATIN 20 MG TAB PO SCH (21:00)
[2021-03-13] MEDS ORDERED: SODIUM CHLORIDE 0.9% 50ML 50 ML ONE (21:10)
[2021-03-13] MEDS ORDERED: IOPAMIDOL 370 MG/ML 200 ML INFUS..BTL INJ ONE (21:10)
[2021-03-13] MEDS ORDERED: ACETAMINOPHEN 650 MG SUPP PR ONE (22:45)
[2021-03-14] MEDS: MEROPENEM 1 GM in SODIUM CHLORIDE 0.9% 100 ML IV SCH (02:00)
[2021-03-14 06:27] LABS: BASOPHILS # (AUTO) 0.1 (0.0-0.1); BASOPHILS % 0.4 % (0.0-1.0); EOSINOPHILS # (AUTO) 0.1 (0.0-0.4); EOSINOPHILS % 0.7 % (0.0-6.0); HEMATOCRIT 41.7 % (34.2-44.1); HEMOGLOBIN 13.9 g/dL (12.0-16.0); LYMPHOCYTES # (AUTO) 0.6 (1.0-3.2); LYMPHOCYTES % 4.8 % (18.0-39.1); MEAN CORPUSCULAR HEMOGLOBIN 33.4 pg (28-32); MEAN CORPUSCULAR HGB CONC 33.3 g/dL (31-35); MEAN CORPUSCULAR VOLUME 100.2 fL (81-99); MONOCYTES # (AUTO) 0.9 (0.2-0.8); MONOCYTES % 6.9 % (4.4-11.3); NEUTROPHILS # (AUTO) 11.6 (2.1-6.9); NEUTROPHILS % 86.8 % (38.7-80.0); PLATELET COUNT 497 x10e3/uL (140-360); RED BLOOD COUNT 4.16 x10e6/uL (3.6-5.1); RED CELL DISTRIBUTION WIDTH 17.6 % (11.7-14.4)
[2021-03-14] MEDS ORDERED: LEVOTHYROXINE SODIUM 50 MCG TAB PO SCH (06:30)
[2021-03-14 06:46] LABS: MAGNESIUM 2.3 MG/DL (1.3-2.1); PHOSPHORUS 2.5 MG/DL (2.3-4.7)
[2021-03-14 06:50] LABS: ALBUMIN 2.2 g/dL (3.5-5.0); ALBUMIN/GLOBULIN RATIO 0.6 (0.8-2.0); ANION GAP 10.9 mmol/L (8-16); CALCIUM 9.6 mg/dL (8.4-10.2); CREATININE, SERUM 0.6 mg/dL (0.57-1.11)
[2021-03-14 06:54] LABS: POTASSIUM 2.9 mmol/L (3.5-5.1)
[2021-03-14 07:11] VITALS: BP 107/84
[2021-03-14 07:29] VITALS: BP 125/78
[2021-03-14 08:00] VITALS: BP 124/52
== END 2021-03-14 09:30 | disposition hospice, home (50) | DRG 871 ==
LOC: ER 09:45 → ERHOLD 13:25
PROVIDERS: ADMIT Internal Medicine; ATTEND Internal Medicine
PROC: 02HV33Z Insertion of Infusion Device into Superior Vena Cava, Percutaneous Approach (ICD-10-PCS; principal; 2021-03-13)
PROC: 3E043XZ Introduction of Vasopressor into Central Vein, Percutaneous Approach (ICD-10-PCS; 2021-03-13)
DX: A41.9 Sepsis, unspecified organism (principal); G93.41 Metabolic encephalopathy; R65.21 Severe sepsis with septic shock; R65.20 Severe sepsis without septic shock; R62.7 Adult failure to thrive; E03.9 Hypothyroidism, unspecified; Z09 Encounter for follow-up examination after completed treatment for conditions other than malignant neoplasm; Z87.440 Personal history of urinary (tract) infections; G35 Multiple sclerosis; Z88.5 Allergy status to narcotic agent; G62.9 Polyneuropathy, unspecified; F03.90 Unspecified dementia, unspecified severity, without behavioral disturbance, psychotic disturbance, mood disturbance, and anxiety; E87.6 Hypokalemia; E86.0 Dehydration; E78.5 Hyperlipidemia, unspecified; L89.152 Pressure ulcer of sacral region, stage 2; Z74.01 Bed confinement status; E83.52 Hypercalcemia; Z68.25 Body mass index [BMI] 25.0-25.9, adult; Z20.822 Contact with and (suspected) exposure to COVID-19; F32.A Depression, unspecified; R26.9 Unspecified abnormalities of gait and mobility
CPT/HCPCS: 36415; 36569; 51700; 70450; 71045; 74177; 80053; 80307; 80320; 80329; 81001; 82140; 82550; 82553; 82805; 82948; 83605; 83735; 83880; 84100; 84484; 85025; 85610; 85730; 87040; 87086; 93005; 93306; 94799; 99285; J1650; J2185; J3370; J3480; J7030; J7050; J7121; Q9967; U0002